=== PATIENT | male | born 1935 | race Hispanic/Latino ===

== ENCOUNTER 2018-01-03 09:59 | Observation (INO) | payer MEDICARE ==
[~2018-01-03] VITALS: Ht 170.2 cm; Wt 94.3 kg
[~2018-01-03 09:59] MED LIST: AMLO5TAB2 PO; ASPI-555 PO; ESZO1TAB12 PO; FURO40SO4 PO; LACT10SO32 PO; LOSA100T29 PO; METO25TA6 PO; NITR0.4T SL; OMEP20TA25 PO; POTA10CA44 PO; SIMV40TA59 PO; TAMS0.4C32 PO; WARF3TAB59 PO; WARF4TAB72 PO
[2018-01-03 10:17] LABS: BASOPHILS % (AUTO) 0.3 % (0.0-5.0); EOSINOPHILS % (AUTO) 1.6 % (0.0-8.0); LYMPHOCYTES % (AUTO) 20.3 % (21.0-51.0); MEAN CORPUSCULAR HGB CONC 33.4 g/dL (32.0-36.0); MEAN CORPUSCULAR VOLUME 89.8 fL (79-99); MONOCYTES % (AUTO) 8.1 % (3.0-13.0); NEUTROPHILS % (AUTO) 69.7 % (40.0-77.0); PLATELET COUNT (AUTO) 140 K/uL (130-400); RED BLOOD CELL COUNT(AUTO) 5.01 MIL/uL (4.50-6.20); RED CELL DISTRIBUTION WIDTH 16.2 % (11.0-15.5)
[2018-01-03 10:33] LABS: CREATININE 1.2 mg/dL (0.5-1.5); POTASSIUM 3.2 mmol/L (3.5-5.1)
[2018-01-03] MEDS ORDERED: ASPIRIN 325 MG TABLET ONE (10:34)
[2018-01-03] MEDS ORDERED: NITROGLYCERIN 0.4 MG SL TAB SL ONE (10:34)
[2018-01-03 10:35] LABS: INR 2.53 (0.85-1.15); PARTIAL THROMBOPLASTIN TIME 36.6 SEC (26.3-35.5); PROTHROMBIN TIME 26.1 SEC (9.6-11.6)
[2018-01-03 10:49] LABS: ALBUMIN 3.8 g/dL (3.5-5.0); BILIRUBIN,TOTAL 0.8 mg/dL (0.2-1.0); TOTAL PROTEIN, SERUM 7.6 g/dL (6.0-8.3)
[2018-01-03 10:51] LABS: B-TYPE NATRIURETIC PEPTIDE 279 pg/mL (0-100)
[2018-01-03] MEDS ORDERED: GLUCAGON 1MG KIT 1 MG ML IM PRN (13:30)
[2018-01-03] MEDS ORDERED: DEXTROSE 50%-WATER 50 ML DISP.SYRIN IV PRN (13:30)
[2018-01-03] MEDS: INSULIN R PO SS1 SQ SCH ×2 (16:30→21:00)
[2018-01-03 16:33] LABS: CREATINE KINASE MB 0.7 ng/mL (0.5-3.6); CREATINE KINASE, TOTAL 98 U/L (21-232); MYOGLOBIN 56 ng/mL (10-92); TROPONIN I < 0.04 ng/mL (0.00-0.06)
[2018-01-03] MEDS ORDERED: NITROGLYCERIN 0.4 MG SL TAB SL SCH (20:15)
[2018-01-03] MEDS: ATORVASTATIN CALCIUM 10 MG TABLET PO SCH (21:00)
[2018-01-03] MEDS: TAMSULOSIN HCL 0.4 MG CAP.ER.24H PO SCH (21:00)
[2018-01-03] MEDS: ZOLPIDEM TARTRATE 5 MG TAB PO SCH (21:15)
[2018-01-03 23:44] LABS: CREATINE KINASE MB 1.1 ng/mL (0.5-3.6); CREATINE KINASE, TOTAL 49 U/L (21-232); MYOGLOBIN 39 ng/mL (10-92); TROPONIN I < 0.04 ng/mL (0.00-0.06)
[2018-01-04] MEDS: INSULIN R PO SS1 SQ SCH ×3 (07:30→16:04)
[2018-01-04] MEDS ORDERED: NON-FORMULARY MEDICATION 1 EACH (Omeprazole 20 MG) PO SCH (09:00)
[2018-01-04] MEDS ORDERED: PANTOPRAZOLE SODIUM 40 MG TABLET.DR PO SCH (09:00)
[2018-01-04] MEDS ORDERED: POTASSIUM CHLORIDE 10% ELIXIR 20 MEQ/15 ML UDCUP PO PRN (10:30)
[2018-01-04] MEDS ORDERED: POTASSIUM CHLORIDE 20 MEQ ERTAB PO PRN (10:30)
[2018-01-04] MEDS ORDERED: LIDOCAINE HCL-MPF 1% 2ML VIAL IVP PRN (10:30)
[2018-01-04] MEDS ORDERED: POTASSIUM CHLORIDE 20MEQ/100ML 100 ML IV PRN (10:30)
[2018-01-04] MEDS ORDERED: REGADENOSON 0.4 MG/5 ML PF SYG IVP SCH (11:30)
[2018-01-04] MEDS ORDERED: AMLODIPINE BESYLATE 5 MG TAB PO SCH (12:00)
[2018-01-04] MEDS ORDERED: POTASSIUM CHLORIDE 20 MEQ ERTAB PO SCH (12:00)
[2018-01-04 12:50] VITALS: BP 188/98
[2018-01-04] MEDS: FUROSEMIDE 40 MG TABLET PO SCH (13:25)
[2018-01-04] MEDS: ISOSORBIDE MONO 60 MG TAB.SR PO SCH (13:25)
[2018-01-04] MEDS: ASPIRIN 81 MG EC TAB PO SCH (13:25)
[2018-01-04] MEDS: LOSARTAN 100 MG TABLET PO SCH (13:25)
[2018-01-04 16:09] VITALS: BP 152/53
[2018-01-04] MEDS ORDERED: PHARMACY COMMUNICATION MISC SCH (16:15)
[2018-01-04] MEDS ORDERED: METO25TA6 PO (16:41)
[2018-01-04] MEDS ORDERED: LACTULOSE 20 GM/30 ML UDCUP PO SCH (18:00)
[2018-01-04] MEDS ORDERED: WARFARIN SODIUM 1 MG TAB PO SCH (18:00)
[2018-01-04 19:18] VITALS: BP 135/65
[2018-01-04] MEDS: ZOLPIDEM TARTRATE 5 MG TAB PO SCH (21:22)
[2018-01-04] MEDS: ATORVASTATIN CALCIUM 10 MG TABLET PO SCH (21:22)
[2018-01-04] MEDS: TAMSULOSIN HCL 0.4 MG CAP.ER.24H PO SCH (21:22)
[2018-01-04 23:37] VITALS: BP 136/76
[2018-01-05 03:34] VITALS: BP 119/60
[2018-01-05 04:02] LABS: INR 2.42 (0.85-1.15)
[2018-01-05 07:37] VITALS: BP 162/73
[2018-01-05] MEDS: ASPIRIN 81 MG EC TAB PO SCH (08:02)
[2018-01-05] MEDS: ISOSORBIDE MONO 60 MG TAB.SR PO SCH (08:02)
[2018-01-05] MEDS: LOSARTAN 100 MG TABLET PO SCH (08:03)
[2018-01-05] MEDS: FUROSEMIDE 40 MG TABLET PO SCH (08:03)
[2018-01-05] MEDS ORDERED: RANO500T2 PO (08:12)
[2018-01-05] MEDS ORDERED: ATOR40TA69 PO (08:12)
[2018-01-08] MEDS ORDERED: WARFARIN SODIUM 1 MG TAB PO SCH (16:00)
== END 2018-01-05 09:35 | disposition home or self-care (01) ==
LOC: EDH 09:59 → EDHIP 12:57 → 2BH 01-04 10:32
PROVIDERS: ADMIT Internal Medicine Nephrology; ATTEND Internal Medicine Nephrology
DX: R07.89 Other chest pain (principal); I25.10 Atherosclerotic heart disease of native coronary artery without angina pectoris; I48.2 Chronic atrial fibrillation; S24.104S Unspecified injury at T11-T12 level of thoracic spinal cord, sequela; D68.318 Other hemorrhagic disorder due to intrinsic circulating anticoagulants, antibodies, or inhibitors; I11.0 Hypertensive heart disease with heart failure; E11.51 Type 2 diabetes mellitus with diabetic peripheral angiopathy without gangrene; I50.43 Acute on chronic combined systolic (congestive) and diastolic (congestive) heart failure; E78.5 Hyperlipidemia, unspecified; E87.6 Hypokalemia; G47.33 Obstructive sleep apnea (adult) (pediatric); J44.9 Chronic obstructive pulmonary disease, unspecified; N40.0 Benign prostatic hyperplasia without lower urinary tract symptoms; I25.2 Old myocardial infarction; I71.4 Abdominal aortic aneurysm, without rupture; F41.1 Generalized anxiety disorder; X58.XXXS Exposure to other specified factors, sequela; Y93.89 Activity, other specified; Y92.89 Other specified places as the place of occurrence of the external cause; Y99.8 Other external cause status; Z87.891 Personal history of nicotine dependence; Z86.79 Personal history of other diseases of the circulatory system; Z86.010 Personal history of colon polyps; Z95.1 Presence of aortocoronary bypass graft; Z95.5 Presence of coronary angioplasty implant and graft; Z79.01 Long term (current) use of anticoagulants
CPT/HCPCS: 36415 ×3; 71045; 78452; 80053; 82550 ×3; 82553 ×3; 82948; 83874 ×3; 83880; 84132; 84484 ×3; 85025; 85610 ×2; 85730; 93005; 93017; 99291; A9500 ×2; G0378 ×45; J2785; 96374

== ENCOUNTER 2020-04-14 13:27 | Emergency (ER) | payer MEDICARE ==
[~2020-04-14 13:27] MED LIST changes: -AMLO5TAB2 PO; +AMLO5TAB9 PO; -ASPI-555 PO; +ASPI-556 PO; +ATOR40TA71 PO; +COUMADIN PO; -ESZO1TAB12 PO; +FIBER PO; -FURO40SO4 PO; +FURO40TA7 PO; +LACT10SO PO; -LACT10SO32 PO; -LOSA100T29 PO; +LOSA100T58 PO; -METO25TA6 PO; +OXYB5TAB15 PO; +POTA-79 PO; -POTA10CA44 PO; +RANO10003 PO; +SIMV-43 PO; -SIMV40TA59 PO; +WARF3TAB29 PO; -WARF3TAB59 PO; -WARF4TAB72 PO
[2020-04-14 14:33] LABS: BASOPHILS % (AUTO) 0.1 % (0.0-5.0); EOSINOPHILS % (AUTO) 1.1 % (0.0-8.0); HEMATOCRIT 39.5 % (42-54); MEAN CORPUSCULAR HEMOGLOBIN 30.8 pg (27.0-33.0); MEAN CORPUSCULAR HGB CONC 33.2 g/dL (32.0-36.0); MEAN CORPUSCULAR VOLUME 92.9 fL (79-99); MONOCYTES % (AUTO) 8.2 % (3.0-13.0); PLATELET COUNT (AUTO) 150 K/uL (130-400); RED BLOOD CELL COUNT(AUTO) 4.25 MIL/uL (4.50-6.20); RED CELL DISTRIBUTION WIDTH 13.6 % (11.0-15.5)
[2020-04-14 14:46] LABS: CREATININE 1.2 mg/dL (0.5-1.5); POTASSIUM 3.8 mmol/L (3.5-5.1)
[2020-04-14 14:51] LABS: ALBUMIN 3.2 g/dL (3.5-5.0); TOTAL PROTEIN, SERUM 7.7 g/dL (6.0-8.3)
[2020-04-14] MEDS ORDERED: LORAZEPAM 2 MG/ML 1 ML VIAL ONE (16:02)
== END 2020-04-14 16:33 | disposition home or self-care (01) ==
LOC: EDH 13:27
DX: F41.9 Anxiety disorder, unspecified (principal); Z20.828 Contact with and (suspected) exposure to other viral communicable diseases; E11.9 Type 2 diabetes mellitus without complications; I10 Essential (primary) hypertension; I25.10 Atherosclerotic heart disease of native coronary artery without angina pectoris; J44.9 Chronic obstructive pulmonary disease, unspecified; I48.91 Unspecified atrial fibrillation; I71.4 Abdominal aortic aneurysm, without rupture; E78.5 Hyperlipidemia, unspecified; Z87.891 Personal history of nicotine dependence; Z88.0 Allergy status to penicillin
CPT/HCPCS: 36415; 71045; 80053; 84484; 85025; 87426; 93005; 96374; 99285; J2060

== ENCOUNTER → 2020-05-15 | Outpatient (CLI) | payer MEDICARE ==
[~2020-05-15] MED LIST changes: +AMLO-257 PO; -AMLO5TAB9 PO; +REGADENOSON 0.4 MG/5 ML PF SYG IVP SCH
== END | disposition home or self-care (01) ==
LOC: SHCH 07:57
PROVIDERS: ATTEND Internal Medicine Cardiovascular Disease
DX: I48.91 Unspecified atrial fibrillation (principal); R06.09 Other forms of dyspnea; R07.9 Chest pain, unspecified
CPT/HCPCS: 78452; 93017; 96374; A9500 ×2; J2785

== ENCOUNTER 2022-07-04 03:17 | Inpatient (IN) | payer OTHER, MEDICARE ==
[~2022-07-04] VITALS: Ht 170.2 cm; Wt 93.6 kg
[~2022-07-04 03:17] MED LIST changes: -LACT10SO PO; +LACT10SO5 PO; +OMEP20TA20 PO; -OMEP20TA25 PO; -REGADENOSON 0.4 MG/5 ML PF SYG IVP SCH
[2022-07-04 09:10] VITALS: BP 156/71
[2022-07-04] MEDS ORDERED: AZITHROMYCIN 250 MG TABLET PO SCH (10:30)
[2022-07-04] MEDS ORDERED: ONDANSETRON 4MG INJ IVP PRN (10:30)
[2022-07-04 10:56] LABS: BASOPHILS % (AUTO) 0.2 % (0.0-5.0); EOSINOPHILS % (AUTO) 1.3 % (0.0-8.0); HEMATOCRIT 38.3 % (42-54); LYMPHOCYTES % (AUTO) 13.3 % (21.0-51.0); MEAN CORPUSCULAR HEMOGLOBIN 30.1 pg (27.0-33.0); MEAN CORPUSCULAR HGB CONC 32.6 g/dL (32.0-36.0); MEAN CORPUSCULAR VOLUME 92.3 fL (79-99); MONOCYTES % (AUTO) 5.4 % (3.0-13.0); NEUTROPHILS % (AUTO) 79.3 % (40.0-77.0); PLATELET COUNT (AUTO) 165 K/uL (130-400); RED BLOOD CELL COUNT(AUTO) 4.15 MIL/uL (4.50-6.20); RED CELL DISTRIBUTION WIDTH 14.3 % (11.0-15.5); WHITE BLOOD COUNT (AUTO) 6.3 K/uL (4.8-10.8)
[2022-07-04 11:00] VITALS: BP 126/74
[2022-07-04 11:13] LABS: INR 2.57 (0.85-1.15); PROTHROMBIN TIME 26.6 SEC (9.6-11.6)
[2022-07-04 11:16] LABS: CREATININE 1.4 mg/dL (0.5-1.5); POTASSIUM 3.7 mmol/L (3.5-5.1); TOTAL PROTEIN, SERUM 7.8 g/dL (6.0-8.3)
[2022-07-04] MEDS: FUROSEMIDE 40MG VIAL IV SCH ×2 (11:33→21:16)
[2022-07-04 11:47] LABS: B-TYPE NATRIURETIC PEPTIDE 260 pg/mL (0-100)
[2022-07-04] MEDS ORDERED: SODIUM CHLORIDE 3% FOR INHALATION 4 ML/AMP VIAL.NEB IH ONE (11:52)
[2022-07-04] MEDS: IPRATROPIUM 0.5 MG/2.5 ML INH IH SCH ×3 (11:56→23:05)
[2022-07-04] MEDS ORDERED: BENZONATATE 100 MG CAPSULE PO SCH (12:30)
[2022-07-04] MEDS: WARFARIN SODIUM 1 MG TAB PO SCH (15:19)
[2022-07-04 15:35] VITALS: BP 145/64
[2022-07-04] MEDS ORDERED: WARFARIN SODIUM 2 MG TAB PO SCH (16:00)
[2022-07-04] MEDS ORDERED: POTASSIUM CHLORIDE 20MEQ/100ML 100 ML IV PRN (16:00)
[2022-07-04] MEDS ORDERED: LIDOCAINE HCL-MPF 1% 2ML VIAL IV PRN (16:00)
[2022-07-04] MEDS ORDERED: POTASSIUM CHLORIDE 10% ELIXIR 20 MEQ/15 ML UDCUP PO PRN (16:00)
[2022-07-04 20:00] VITALS: BP 137/72
[2022-07-04] MEDS: ATORVASTATIN 40 MG TABLET PO SCH (21:09)
[2022-07-04] MEDS ORDERED: BUSP10TA3 PO (21:12)
[2022-07-04] MEDS: METOPROLOL SUCCINATE 25 MG TAB.SR.24H PO SCH (21:14)
[2022-07-04] MEDS: LEVOFLOXACIN 250 MG/D5W 50ML 50 ML IVPB SCH (21:14)
[2022-07-04] MEDS: RANOLAZINE 500 MG TAB.SR.12H PO SCH (21:16)
[2022-07-05] VITALS: BP_SYST 141; BP_SYST 144; BP_DIAS 57; BP_DIAS 66
[2022-07-05 04:00] VITALS: BP 141/57
[2022-07-05 05:24] LABS: BASOPHILS % (AUTO) 0.2 % (0.0-5.0); EOSINOPHILS % (AUTO) 3.2 % (0.0-8.0); HEMATOCRIT 36.1 % (42-54); LYMPHOCYTES % (AUTO) 22.3 % (21.0-51.0); MEAN CORPUSCULAR HEMOGLOBIN 30.4 pg (27.0-33.0); MEAN CORPUSCULAR HGB CONC 32.4 g/dL (32.0-36.0); MEAN CORPUSCULAR VOLUME 93.8 fL (79-99); NEUTROPHILS % (AUTO) 64.7 % (40.0-77.0); PLATELET COUNT (AUTO) 154 K/uL (130-400); RED BLOOD CELL COUNT(AUTO) 3.85 MIL/uL (4.50-6.20); RED CELL DISTRIBUTION WIDTH 14.4 % (11.0-15.5); WHITE BLOOD COUNT (AUTO) 5.3 K/uL (4.8-10.8)
[2022-07-05 05:42] LABS: INR 2.34 (0.85-1.15); PROTHROMBIN TIME 24.3 SEC (9.6-11.6)
[2022-07-05 06:11] LABS: ALANINE AMINOTRANSFERASE 18 U/L (12-78); ALBUMIN 3.6 g/dL (3.5-5.0); ASPARTATE AMINOTRANSFERASE 16 U/L (10-37); CARBON DIOXIDE 28 mmol/L (21-32); CHLORIDE 104 mmol/L (101-111); CREATININE 1.4 mg/dL (0.5-1.5); GLOMERULAR FILTR. RATE CALC 51 mL/min (>60); GLUCOSE,RANDOM 102 mg/dL (70-105); POTASSIUM 3.4 mmol/L (3.5-5.1); SODIUM SERUM 142 mmol/L (136-145); THYROID STIMULATING HORMONE 2.09 uIU/mL (0.36-3.74); TOTAL PROTEIN, SERUM 7.2 g/dL (6.0-8.3); UREA NITROGEN, BLOOD 21 mg/dL (7-18)
[2022-07-05 06:17] LABS: CRP QUANTITATIVE < 2.00 mg/L (0.00-9.0)
[2022-07-05] MEDS: IPRATROPIUM 0.5 MG/2.5 ML INH IH SCH ×4 (06:59→23:22)
[2022-07-05 08:07] VITALS: BP 152/53
[2022-07-05] MEDS ORDERED: LEVOFLOXACIN 250 MG/D5W 50ML 50 ML IVPB SCH (09:00)
[2022-07-05] MEDS: TAMSULOSIN HCL 0.4 MG CAP.ER.24H PO SCH (09:29)
[2022-07-05] MEDS: LOSARTAN 100 MG TABLET PO SCH (09:29)
[2022-07-05] MEDS: PANTOPRAZOLE 40 MG TAB DR PO SCH (09:29)
[2022-07-05] MEDS: AMLODIPINE 5 MG TAB PO SCH (09:30)
[2022-07-05] MEDS: METOPROLOL SUCCINATE 25 MG TAB.SR.24H PO SCH ×2 (09:30→20:38)
[2022-07-05] MEDS: ASPIRIN 81 MG EC TAB PO SCH (09:30)
[2022-07-05] MEDS: RANOLAZINE 500 MG TAB.SR.12H PO SCH ×2 (09:31→20:38)
[2022-07-05] MEDS: LEVOFLOXACIN 250 MG/D5W 50ML 50 ML IVPB SCH (09:40)
[2022-07-05 11:34] VITALS: BP 140/56
[2022-07-05] MEDS: KCL 20 MEQ ERTAB PO PRN ×2 (11:35→16:57)
[2022-07-05] MEDS: FUROSEMIDE 40MG VIAL IV SCH ×2 (11:35→20:42)
[2022-07-05] MEDS ORDERED: LACTULOSE 20 GM/30 ML UDCUP PO SCH (13:30)
[2022-07-05 15:52] VITALS: BP 140/73
[2022-07-05] MEDS: BUSPIRONE HCL 5 MG TABLET PO SCH (17:33)
[2022-07-05 20:00] VITALS: BP 150/64
[2022-07-05] MEDS: ATORVASTATIN 40 MG TABLET PO SCH (20:38)
[2022-07-06] VITALS: BP_SYST 137; BP_SYST 150; BP_DIAS 60; BP_DIAS 64
[2022-07-06 04:00] VITALS: BP 113/54
[2022-07-06 05:15] LABS: BASOPHILS % (AUTO) 0.2 % (0.0-5.0); EOSINOPHILS % (AUTO) 3.9 % (0.0-8.0); HEMATOCRIT 35.7 % (42-54); LYMPHOCYTES % (AUTO) 18.8 % (21.0-51.0); MEAN CORPUSCULAR HEMOGLOBIN 30.2 pg (27.0-33.0); MEAN CORPUSCULAR HGB CONC 32.2 g/dL (32.0-36.0); MEAN CORPUSCULAR VOLUME 93.7 fL (79-99); MONOCYTES % (AUTO) 9.6 % (3.0-13.0); PLATELET COUNT (AUTO) 159 K/uL (130-400); RED BLOOD CELL COUNT(AUTO) 3.81 MIL/uL (4.50-6.20); RED CELL DISTRIBUTION WIDTH 14.4 % (11.0-15.5); WHITE BLOOD COUNT (AUTO) 5.7 K/uL (4.8-10.8)
[2022-07-06 05:29] LABS: ALBUMIN 3.5 g/dL (3.5-5.0); CREATININE 1.3 mg/dL (0.5-1.5); MAGNESIUM 1.9 mg/dL (1.80-2.40); POTASSIUM 3.5 mmol/L (3.5-5.1); TOTAL PROTEIN, SERUM 7.1 g/dL (6.0-8.3)
[2022-07-06] MEDS: IPRATROPIUM 0.5 MG/2.5 ML INH IH SCH ×4 (06:35→23:09)
[2022-07-06] MEDS: KCL 20 MEQ ERTAB PO PRN ×2 (06:46→08:27)
[2022-07-06 07:35] VITALS: BP 147/59
[2022-07-06] MEDS: LEVOFLOXACIN 250 MG/D5W 50ML 50 ML IVPB SCH (08:24)
[2022-07-06] MEDS: ASPIRIN 81 MG EC TAB PO SCH (08:25)
[2022-07-06] MEDS: AMLODIPINE 5 MG TAB PO SCH (08:25)
[2022-07-06] MEDS: LACTULOSE 20 GM/30 ML UDCUP PO SCH (08:25)
[2022-07-06] MEDS: RANOLAZINE 500 MG TAB.SR.12H PO SCH ×2 (08:25→20:39)
[2022-07-06] MEDS: TAMSULOSIN HCL 0.4 MG CAP.ER.24H PO SCH (08:25)
[2022-07-06] MEDS: METOPROLOL SUCCINATE 25 MG TAB.SR.24H PO SCH ×2 (08:25→20:39)
[2022-07-06] MEDS: PANTOPRAZOLE 40 MG TAB DR PO SCH (08:25)
[2022-07-06] MEDS: LOSARTAN 100 MG TABLET PO SCH (08:25)
[2022-07-06] MEDS: FUROSEMIDE 40 MG TABLET PO SCH (08:25)
[2022-07-06] MEDS: BUSPIRONE HCL 5 MG TABLET PO SCH ×2 (08:25→20:39)
[2022-07-06] MEDS ORDERED: LEVO250T75 PO (11:24)
[2022-07-06 11:27] VITALS: BP 113/57
[2022-07-06 15:45] VITALS: BP 140/63
[2022-07-06] MEDS: ATORVASTATIN 40 MG TABLET PO SCH (20:39)
[2022-07-06] MEDS: ACETAMINOPHEN 325 MG TAB PO PRN (20:44)
[2022-07-06 21:06] VITALS: BP 134/57
[2022-07-07 00:10] VITALS: BP 135/61
[2022-07-07] MEDS: BENZONATATE 100 MG CAPSULE PO PRN ×2 (01:16→16:09)
[2022-07-07] MEDS: ACETAMINOPHEN 325 MG TAB PO PRN (01:18)
[2022-07-07 04:38] VITALS: BP 123/71
[2022-07-07] MEDS: IPRATROPIUM 0.5 MG/2.5 ML INH IH SCH ×4 (06:36→23:14)
[2022-07-07] MEDS: KCL 20 MEQ ERTAB PO PRN ×2 (07:13→20:07)
[2022-07-07 08:00] VITALS: BP 128/55
[2022-07-07] MEDS ORDERED: REGADENOSON 0.4 MG/5 ML PF SYG IVP SCH (08:30)
[2022-07-07] MEDS: LACTULOSE 20 GM/30 ML UDCUP PO SCH (09:05)
[2022-07-07] MEDS: ASPIRIN 81 MG EC TAB PO SCH (09:06)
[2022-07-07] MEDS: LOSARTAN 100 MG TABLET PO SCH (09:06)
[2022-07-07] MEDS: FUROSEMIDE 40 MG TABLET PO SCH (09:06)
[2022-07-07] MEDS: LEVOFLOXACIN 250 MG/D5W 50ML 50 ML IVPB SCH (09:06)
[2022-07-07] MEDS: PANTOPRAZOLE 40 MG TAB DR PO SCH (09:06)
[2022-07-07] MEDS: BUSPIRONE HCL 5 MG TABLET PO SCH ×2 (09:06→20:06)
[2022-07-07] MEDS: AMLODIPINE 5 MG TAB PO SCH (09:06)
[2022-07-07] MEDS: METOPROLOL SUCCINATE 25 MG TAB.SR.24H PO SCH ×2 (09:06→22:01)
[2022-07-07] MEDS: RANOLAZINE 500 MG TAB.SR.12H PO SCH ×2 (09:06→20:06)
[2022-07-07] MEDS: TAMSULOSIN HCL 0.4 MG CAP.ER.24H PO SCH (09:06)
[2022-07-07 11:57] VITALS: BP 154/68
[2022-07-07 16:00] VITALS: BP 136/59
[2022-07-07] MEDS: WARFARIN SODIUM 1 MG TAB PO SCH (16:09)
[2022-07-07] MEDS ORDERED: RANO500T2 PO (16:56)
[2022-07-07] MEDS: ATORVASTATIN 40 MG TABLET PO SCH (20:06)
[2022-07-07 20:36] VITALS: BP 134/55
[2022-07-08 00:24] VITALS: BP 126/58
[2022-07-08] MEDS ORDERED: NACL NASAL SPRAY 120 SPRAY/BOTTLE NS PRN (02:00)
[2022-07-08] MEDS ORDERED: GUAIFENESIN 600 MG TABLET.ER PO ONE (02:00)
[2022-07-08 04:06] VITALS: BP 116/57
[2022-07-08 04:06] LABS: BASOPHILS % (AUTO) 0.2 % (0.0-5.0); EOSINOPHILS % (AUTO) 3.6 % (0.0-8.0); HEMATOCRIT 32.4 % (42-54); LYMPHOCYTES % (AUTO) 21.2 % (21.0-51.0); MEAN CORPUSCULAR HEMOGLOBIN 30.5 pg (27.0-33.0); MEAN CORPUSCULAR HGB CONC 32.4 g/dL (32.0-36.0); MEAN CORPUSCULAR VOLUME 94.2 fL (79-99); NEUTROPHILS % (AUTO) 65.6 % (40.0-77.0); PLATELET COUNT (AUTO) 135 K/uL (130-400); RED BLOOD CELL COUNT(AUTO) 3.44 MIL/uL (4.50-6.20); RED CELL DISTRIBUTION WIDTH 13.9 % (11.0-15.5)
[2022-07-08 04:14] LABS: ALBUMIN 3.2 g/dL (3.5-5.0); CREATININE 1.3 mg/dL (0.5-1.5); MAGNESIUM 1.9 mg/dL (1.80-2.40); POTASSIUM 4.3 mmol/L (3.5-5.1); TOTAL PROTEIN, SERUM 6.6 g/dL (6.0-8.3)
[2022-07-08] MEDS ORDERED: MAGNESIUM 2GM PREMIX 50ML 50 ML IV PRN (06:00)
[2022-07-08] MEDS ORDERED: MAGNESIUM 2GM PREMIX 50ML 50 ML IV ONE (06:08)
[2022-07-08] MEDS ORDERED: IPRATROPIUM 0.5 MG/2.5 ML INH IH ONE (06:12)
[2022-07-08] MEDS: IPRATROPIUM 0.5 MG/2.5 ML INH IH SCH ×2 (06:31→11:15)
[2022-07-08 08:00] VITALS: BP 129/57
[2022-07-08] MEDS: AMLODIPINE 5 MG TAB PO SCH (09:16)
[2022-07-08] MEDS: LEVOFLOXACIN 250 MG/D5W 50ML 50 ML IVPB SCH (09:16)
[2022-07-08] MEDS: TAMSULOSIN HCL 0.4 MG CAP.ER.24H PO SCH (09:16)
[2022-07-08] MEDS: LOSARTAN 100 MG TABLET PO SCH (09:16)
[2022-07-08] MEDS: METOPROLOL SUCCINATE 25 MG TAB.SR.24H PO SCH (09:16)
[2022-07-08] MEDS: BUSPIRONE HCL 5 MG TABLET PO SCH (09:16)
[2022-07-08] MEDS: RANOLAZINE 500 MG TAB.SR.12H PO SCH (09:16)
[2022-07-08] MEDS: LACTULOSE 20 GM/30 ML UDCUP PO SCH (09:16)
[2022-07-08] MEDS: FUROSEMIDE 40 MG TABLET PO SCH (09:17)
[2022-07-08] MEDS: ASPIRIN 81 MG EC TAB PO SCH (09:17)
[2022-07-08] MEDS: PANTOPRAZOLE 40 MG TAB DR PO SCH (09:17)
[2022-07-08] MEDS ORDERED: WARFARIN SODIUM 2 MG TAB PO SCH (16:00)
[2022-07-08] MEDS ORDERED: WARFARIN SODIUM 2.5 MG TAB PO SCH (16:00)
== END 2022-07-08 11:56 | disposition home or self-care (01) | DRG 291 ==
LOC: 4BH 09:03
PROVIDERS: ADMIT Hospitalist; ATTEND Hospitalist
DX: I50.41 Acute combined systolic (congestive) and diastolic (congestive) heart failure (principal); J96.01 Acute respiratory failure with hypoxia; I48.20 Chronic atrial fibrillation, unspecified; J44.9 Chronic obstructive pulmonary disease, unspecified; Z79.01 Long term (current) use of anticoagulants; N40.0 Benign prostatic hyperplasia without lower urinary tract symptoms
CPT/HCPCS: 36415; 71045; 78452; 80053; 82948; 83605; 83735; 83880; 84145; 84443; 84484; 85025; 85610; 86140; 87071; 87205; 93017; 94640; 94664; 94760; 96374; A9500; G0378; J1940; J1956; J2785; J3475

== ENCOUNTER → 2022-09-02 | Outpatient (CLI) | payer MEDICARE ==
[~2022-09-02] MED LIST changes: +BUSP10TA3 PO; +LEVO250T75 PO; +RANO500T2 PO
[2022-09-02 12:48] LABS: CREATININE 1.4 mg/dL (0.5-1.5); POTASSIUM 4.3 mmol/L (3.5-5.1)
== END | disposition home or self-care (01) ==
LOC: LAB 09:25
PROVIDERS: ATTEND Internal Medicine Cardiovascular Disease
DX: I10 Essential (primary) hypertension (principal)
CPT/HCPCS: 36415; 80048; 83880

== ENCOUNTER → 2023-07-09 | Outpatient (CLI) | payer MEDICARE ==
[~2023-07-09] MED LIST changes: -AMLO-257 PO; +AMLO-258 PO; -ASPI-556 PO; +ASPI-888 PO; +ATOR40TA69 PO; -ATOR40TA71 PO; +CARB1DRO40 OU; +CEFTIN PO; +CHLO25TA3 PO; +CORTSUSP OT; -COUMADIN PO; +DOXY100T2 PO; +FERR-72 PO; -FIBER PO; -FURO40TA7 PO; +IPRA0.2S54 IH; -LEVO250T75 PO; +LOSA-420 PO; -LOSA100T58 PO; +MAGN400T53 PO; +METO-408 PO; +NITR0.3T11 SL; -NITR0.4T SL; -OMEP20TA20 PO; -OXYB5TAB15 PO; +PANT40TA54 PO; +POTA-364 PO; -POTA-79 PO; +PSYL0.5215 PO; -RANO10003 PO; -SIMV-43 PO; +TAMS-1 PO; -TAMS0.4C32 PO; -WARF3TAB29 PO; +WARF3TAB59 PO
[2023-07-09 16:33] LABS: CREATININE 1.3 mg/dL (0.5-1.5); POTASSIUM 4.4 mmol/L (3.5-5.1)
[2023-07-09 16:37] LABS: INR 2.11 (0.85-1.15); PROTHROMBIN TIME 23.3 SEC (9.6-11.6)
== END | disposition home or self-care (01) ==
LOC: LAB 13:10
PROVIDERS: ATTEND Internal Medicine Cardiovascular Disease
DX: I10 Essential (primary) hypertension (principal); I20.9 Angina pectoris, unspecified; Z79.01 Long term (current) use of anticoagulants
CPT/HCPCS: 36415; 80048; 83880; 85610

== ENCOUNTER → 2023-09-07 | Outpatient (CLI) | payer MEDICARE ==
[~2023-09-07] MED LIST changes: +AMLO-257 PO; -AMLO-258 PO; -ATOR40TA69 PO; -CARB1DRO40 OU; -CEFTIN PO; -CORTSUSP OT; -DOXY100T2 PO
[2023-09-07 12:28] LABS: CREATININE 1.4 mg/dL (0.5-1.5); POTASSIUM 4.6 mmol/L (3.5-5.1)
== END | disposition home or self-care (01) ==
LOC: LAB 10:03
PROVIDERS: ATTEND Internal Medicine Cardiovascular Disease
DX: I10 Essential (primary) hypertension (principal)
CPT/HCPCS: 36415; 80048

== ENCOUNTER → 2024-03-09 | Outpatient (CLI) | payer MEDICARE ==
[~2024-03-09] MED LIST changes: +AEC81 PO; -AMLO-257 PO; +AMLO-258 PO; -ASPI-888 PO; +ATOR40TA69 PO; -CHLO25TA3 PO; -FERR-72 PO; +FERS325 PO; +FURO40TA5 PO; +HYDR-3421 PO; -IPRA0.2S54 IH; +IPRA4AER IH; -LACT10SO5 PO; +LACT10SO85 PO; -LOSA-420 PO; +LOSA100T59 PO; +MAGN400T40 PO; -MAGN400T53 PO; +MULT-1367 PO; -NITR0.3T11 SL; +NITR0.4T SL; +OMEG100033 PO
== END | disposition home or self-care (01) ==
LOC: RAH 09:30
PROVIDERS: ATTEND Internal Medicine Gastroenterology
DX: K59.04 Chronic idiopathic constipation (principal)
CPT/HCPCS: 74018

== ENCOUNTER → 2024-07-19 | Outpatient (CLI) | payer MEDICARE | END | disposition home or self-care (01) | LOC: SHCH 07:39 | PROVIDERS: ATTEND Internal Medicine Cardiovascular Disease | DX: I71.40 Abdominal aortic aneurysm, without rupture, unspecified (principal) | CPT/HCPCS: 93978 ==

== ENCOUNTER 2024-07-28 00:01 | Emergency (ER) | payer OTHER, MEDICARE ==
[2024-07-28 01:53] LABS: BASOPHILS # (AUTO) 0.02 K/uL (0.00-0.20); BASOPHILS % (AUTO) 0.4 % (0.0-5.0); EOSINOPHILS # (AUTO) 0.24 K/uL (0.00-0.70); EOSINOPHILS % (AUTO) 4.5 % (0.0-8.0); HEMATOCRIT 32.1 % (42-54); IMMATURE GRANULOCYTE ABSOLUTE 0.02 K/uL (0-1); LYMPHOCYTES # (AUTO) 0.8 K/uL (1.0-4.8); LYMPHOCYTES % (AUTO) 15.8 % (21.0-51.0); MEAN CORPUSCULAR HEMOGLOBIN 31.4 pg (27.0-33.0); MEAN CORPUSCULAR HGB CONC 34.3 g/dL (32.0-36.0); MEAN CORPUSCULAR VOLUME 91.7 fL (79-99); MONOCYTES # (AUTO) 0.4 K/uL (0.1-1.0); MONOCYTES % (AUTO) 7.3 % (3.0-13.0); NEUTROPHILS # (AUTO) 3.8 K/uL (1.8-7.7); NEUTROPHILS % (AUTO) 71.6 % (40.0-77.0); PLATELET COUNT (AUTO) 144 K/uL (130-400); RED CELL DISTRIBUTION WIDTH 13.8 % (11.0-15.5); WHITE BLOOD COUNT (AUTO) 5.3 K/uL (4.8-10.8)
[2024-07-28] MEDS ORDERED: ketOROlac 30MG VIAL (30MG/ML) IVP ONE (02:00)
[2024-07-28] MEDS ORDERED: ondanSETRON 4MG INJ IVP ONE (02:00)
[2024-07-28 02:02] LABS: CREATININE 1.3 mg/dL (0.5-1.3); POTASSIUM 3.7 mmol/L (3.5-5.1)
[2024-07-28 02:27] LABS: B-TYPE NATRIURETIC PEPTIDE 205 pg/mL (0-100)
[2024-07-28] MEDS ORDERED: MAGN250T10 PO (03:14)
--- NOTE | 2024-07-28 03:16 | ERN ---
General Chief Complaint: Shortness of Breath Stated Complaint: SHORTNESS OF BREATH Time Seen by MD: 00:03 Source: patient History of Present Illness Initial Comments Patient is a an 89-year-old male coming in due to lower extremity cramps. Patient states that he was history of lower extremity cramps but today they were unbearable. Long with cramps patient does have extensive history of using CPAP at home. Allergies: Coded Allergies: Penicillins (Unverified Allergy, Intermediate, RASH, 07/29/16) penicillin G (Unverified Allergy, Unknown, 05/10/20) pneumococcal vaccine (Unverified Allergy, Unknown, 05/10/20) Home Meds Reported Medications Ipratropium/Albuterol Sulfate (Combivent Respimat Inhal [place]) 20 Mcg-100 Mcg/Actuation Aer.w.adap, 4 GM IH DAILY PRN for SHORTNESS OF BREATH 10/05/23 Nitroglycerin (Nitrostat) 0.4 Mg Tab.subl, 0.4 MG SL AD, TAB.SL 10/05/23 Lactulose (Lactulose) 10 Gram/15 Ml Solution, 10 GM PO DAILY, ML 10/05/23 Hydroxyzine HCl (Hydroxyzine HCl) 25 Mg Tablet, 25 MG PO DAILY PRN for ANXIETY, TAB 10/05/23 Buspirone HCl (Buspirone HCl) 10 Mg Tablet, 10 MG PO BID, TAB 10/05/23 Tamsulosin HCl (Flomax) 0.4 Mg Cap.er.24h, 0.4 MG PO HS, CAPSULE.DR 10/05/23 Atorvastatin Calcium (LIPITOR) 40 Mg Tablet, 40 MG PO HS, TAB 10/05/23 Warfarin Sodium (Warfarin Sodium) 3 Mg Tablet, 3 MG PO HS, TAB 10/05/23 Amlodipine Besylate (Amlodipine Besylate) 10 Mg Tablet, 10 MG PO HS for 30 Days, #30 TAB 0 Refills 10/05/23 Psyllium Husk (Fiber) 0.4 Gram Capsule, 0.8 GM PO NOON, CAP 10/05/23 [place]-3/Dha/Epa/Fish Oil (Fish Oil 1,000 mg Softgel) 1,000 Mg (120 Mg-180 Mg) Capsule, 1000 MG PO NOON, CAP 10/05/23 Multivitamin (Multivitamin) 1 Each Tablet, 1 EACH PO NOON, TAB 10/05/23 Magnesium Oxide (Magnesium) 400 Mg Magnesium Tablet, 400 MG PO NOON, TAB 10/05/23 Ferrous Sulfate (Ferrous Sulfate) 325 Mg (65 Mg Iron) Ectab, 325 MG PO NOON, TAB.EC 10/05/23 Losartan Potassium (Losartan Potassium) 100 Mg Tablet, 100 MG PO NOON, TAB 10/05/23 Potassium Chloride (Potassium Chloride) 20 Meq Tablet.er, 20 MEQ PO HS, TAB 10/05/23 Potassium Chloride (Potassium Chloride) 20 Meq Tablet.er, 20 MEQ PO ACDINNER, TAB 10/05/23 Potassium Chloride (Potassium Chloride) 20 Meq Tablet.er, 20 MEQ PO NOON, TAB 10/05/23 Ranolazine (RANEXA) 500 Mg Tab.er.12h, 500 MG PO BID, TAB 10/05/23 Metoprolol Succinate (Metoprolol Succinate) 25 Mg Tab.er.24h, 12.5 MG PO AMNOON, TAB 10/05/23 Aspirin (ASPIRIN 81 MG ECTAB) 81 Mg Ectab, 81 MG PO DAILY, TAB.EC 10/05/23 Pantoprazole Sodium (Pantoprazole Sodium) 40 Mg Tablet.dr, 40 MG PO AM, TAB 10/05/23 Furosemide (Furosemide) 40 Mg Tablet, 40 MG PO AMNOON, TAB 10/05/23 Past Medical History Past Medical History: A-Fib, CAD, Hypertension Medical History Other: SLEEP APNEA Past Surgical History: Cholecystectomy, CABG Surgical History Other: BACK SURG Family History Family History: CAD Social History Social History: Lives with family ROS Dictation CONSTITUTIONAL: No chills, no fever, no weakness, no diaphoresis, no malaise. HEAD/FACE: No signs of trauma. EENT: No eye pain, no blurred vision, no tearing, no double vision, no ear pain, no ear discharge, no nose pain, no nasal congestion, no throat pain, no throat swelling, no mouth pain. RESPIRATORY: No cough, no orthopnea, no SOB, no stridor, no wheezing. CARDIOVASCULAR: No chest pain, no edema, no palpitations, no syncope. GASTROINTESTINAL/ABDOMINAL: No abdominal pain, no constipation, no diarrhea, no nausea, no vomiting. GENITOURINARY: No abnormal discharge, no dysuria, no frequent urination, no hematuria. No complaints of pain in the genitals. MUSCULOSKELETAL: No back pain, no gout, no joint pain, no joint swelling, no muscle pain, no muscle stiffness, no neck pain. INTEGUMENTARY: No change in color, no change in hair/nails, no dryness, no lesion, no lumps, no rash. NEUROLOGICAL/PSYCH: No anxiety, not depressed, no emotional problem, no headache, no numbness, no pre-existing deficit, no history of seizures, no tremors, no weakness. HEMATOLOGIC/LYMPHATIC: Not anemic, no history of blood clots, no apparent bleeding, no bruising, glands not swollen. All Systems Negative, Except as Noted. Physical Exam Physical Exam Dictation VITAL SIGNS: Reviewed. GENERAL APPEARANCE: Alert, oriented x3, no acute distress, obese. HEAD AND FACE: Non-traumatic. EYES: PERRL, pink conjunctivas, eyelid no trauma, anterior chamber clear. EARS: Pinnas intact and no signs of trauma or erythema. Ear canals clear and no discharge. TMs no erythema. NOSE: No discharge, no bleeding. OROPHARYNX: Mouth normal, teeth no caries, tongue pink. Pharynx clear, no erythema. Tonsils no exudates, no abscesses noted. Mucous membrane moist. NECK: Supple, non-tender, no thyromegaly, no masses, no JVD, no bruits. BREAST: Deferred. CHEST: No tenderness, no crepitus, no paradoxical movement, no retractions. LUNGS: Clear, well-ventilated, symmetric, no rales, no wheezing, no rhonchi, no stridor, good breath sounds bilaterally. HEART: Regular rate, regular rhythm, no murmur, no gallops. VASCULAR: No peripheral edema. ABDOMEN: Soft, positive bowel sounds, nondistended, no guarding, nontender, no rebound, no masses no hepatomegaly, no splenomegaly, no Powell's sign, no hernias. RECTAL: Deferred. GENITAL: Deferred. NEUROLOGICAL: Normal speech, gross motor function intact, gross sensory function intact. MUSCULOSKELETAL: Neck nontender, full range of motion, back nontender, full range of motion. EXTREMITIES: Nontender, full range of motion. SKIN: Color pink, dry, no turgor, no rash, no lacerations, no abrasions, no contusions. LYMPHATICS: Deferred. Results Laboratory and Microbiology Lab and Micro Result Laboratory Tests Test 07/28/24 01:26 07/28/24 01:52 07/28/24 02:05 White Blood Count 5.3 K/uL (4.8-10.8) Red Blood Count 3.50 MIL/uL (4.50-6.20) L Hemoglobin 11.0 g/dL (14.0-18.0) L Hematocrit 32.1 % (42-54) L Mean Corpuscular Volume 91.7 fL (79-99) Mean Corpuscular Hemoglobin 31.4 pg (27.0-33.0) Mean Corpuscular Hemoglobin Concent 34.3 g/dL (32.0-36.0) Red Cell Distribution Width 13.8 % (11.0-15.5) Platelet Count 144 K/uL (130-400) Mean Platelet Volume 9.8 fL (7.5-10.5) Immature Granulocyte % (Auto) 0.4 % (0-1) Neutrophils (%) (Auto) 71.6 % (40.0-77.0) Lymphocytes (%) (Auto) 15.8 % (21.0-51.0) L Monocytes (%) (Auto) 7.3 % (3.0-13.0) Eosinophils (%) (Auto) 4.5 % (0.0-8.0) Basophils (%) (Auto) 0.4 % (0.0-5.0) Neutrophils # (Auto) 3.8 K/uL (1.8-7.7) Lymphocytes # (Auto) 0.8 K/uL (1.0-4.8) L Monocytes # (Auto) 0.4 K/uL (0.1-1.0) Eosinophils # (Auto) 0.24 K/uL (0.00-0.70) Basophils # (Auto) 0.02 K/uL (0.00-0.20) Absolute Immature Granulocyte (auto 0.02 K/uL (0-1) Nucleated Red Blood Cells 0.0 % (0.0-0.19) Sodium Level 140 mmol/L (136-145) Potassium Level 3.7 mmol/L (3.5-5.1) Chloride Level 105 mmol/L (101-111) Carbon Dioxide Level 28 mmol/L (21-32) Blood Urea Nitrogen 14 mg/dL (7-18) Creatinine 1.3 mg/dL (0.5-1.3) Glomerular Filtration Rate Calc 53 mL/min (>90) Random Glucose 101 mg/dL (70-105) Total Calcium 8.9 mg/dL (8.5-10.1) Total Creatine Kinase 70 U/L (21-232) # B-Type Natriuretic Peptide 205 pg/mL (0-100) H Troponin I < 0.05 ng/mL (0.00-0.05) < 0.05 ng/mL (0.00-0.05) Labs Reviewed?: Yes EKG/XRAY/US/CT/MRI EKG Comment 07/28/2024 time 12:18 a.m. Ventricular rate [address] wave elevation or depression X-RAY Comment Chest [facility] MDM: Differential diagnosis: Muscle cramps, hypokalemia, hypomagnesemia, history of AFib, Patient is a an 89-year-old gentleman coming in to be evaluated for lower extremity pain. Patient states that this is a chronic condition but today he felt even worse. Throughout ER visit because of his history patient got a cardiac workup which does not demonstrate any acute changes. Patient will be discharged with a diagnosis of muscle aches. Patient does have a history of low magnesium we will get prescription for low magnesium. ED Course Orders Procedure Category Date Status Time Vital Signs Per CPOE 07/28/24 Transmitted Routine 00:15 B-Type Natriuretic LAB 07/28/24 Complete Peptide 00:15 Chest 1vw RAD 07/28/24 Taken 00:15 12 Lead Ekg Tracing- EKG 07/28/24 Logged Technical 00:15 Oxygen By Nc/Pulse Ox CPOE 07/28/24 Transmitted 00:15 Maintain Iv CPOE 07/28/24 Transmitted 00:15 Iv Insertion CPOE 07/28/24 Transmitted 00:15 Cardiac Monitoring CPOE 07/28/24 Transmitted 00:15 Pulse Oximetry With CPOE 07/28/24 Transmitted Vs And Prn 00:15 Cbc With Differential LAB 07/28/24 Complete 00:15 Activity: Br W/Brp CPOE 07/28/24 Transmitted With Assist 00:15 Creatine Kinase, Total LAB 07/28/24 Complete 00:15 Urinalysis Profile LAB 07/28/24 Logged 00:15 Troponin Poc Order LAB 07/28/24 Complete Only 00:15 Bedside Troponin-I LAB.ER 07/28/24 In Process (Poc) 00:15 Basic Metabolic Panel LAB 07/28/24 Complete 00:15 Ondansetron 4mg Inj PHA 07/28/24 Complete (Zofran 4mg Inj) 02:00 Ketorolac PHA 07/28/24 Complete Tromethamine 30mg/Ml 02:00 Current Medications Medications (Trade) Dose Ordered Sig/Reji Route PRN Reason Start Time Stop Time Status Last Admin Dose Admin Ketorolac Tromethamine (toRADol) 30 mg ONCE ONCE IVP 07/28/24 02:00 07/28/24 01:39 DC Ondansetron HCl (zoFRAN 4MG INJ) 4 mg ONCE ONCE IVP 07/28/24 02:00 07/28/24 01:39 DC Vital Signs Date Time Temp Pulse Resp B/P (MAP) Pulse Ox O2 Delivery O2 Flow Rate FiO2 07/28/24 03:00 48 18 139/67 98 CPAP+ 8 80 07/28/24 01:29 47 18 142/78 98 Room Air* 0 21 07/28/24 00:30 48 18 141/61 97 Nasal Cannula* 2 28 07/28/24 00:03 61 18 123/72 98 Nasal Cannula 2.0 DX & DISP Disposition: Discharge Departure Impression: Primary Impression: Muscle ache of extremity Additional Impression: Hypomagnesemia syndrome Condition: Stable Scripts Magnesium Oxide (Magnesium) 250 Mg Tablet 1 TAB PO DAILY for 7 Days, #7 TAB 0 Refills Prov: VALARIE DUARTE MD 07/28/24 Additional Instructions: FOLLOW-UP WITH PRIMARY CARE PROVIDER IN 1 TO 2 DAYS. TAKE MEDICATIONS DIRECTED HERE IN THE EMERGENCY ROOM. OKAY TO CONTINUE HOME MEDICATIONS UNLESS OTHERWISE DISCUSSED DURING YOUR VISIT IN THE EMERGENCY ROOM TODAY. RETURN TO YOUR NEAREST EMERGENCY ROOM IF SYMPTOMS WORSEN OR IF THERE IS NO IMPROVEMENT. CALL 911 IF YOU NEED IMMEDIATE ASSISTANCE. TAKE TYLENOL [id number] NEEDED AND IF NO CONTRAINDICATIONS ARE PRESENT. INCREASE ORAL HYDRATION. A WOUND CULTURE OR URINE CULTURE WAS ORDERED HERE IN THE EMERGENCY ROOM DEPARTMENT PLEASE FOLLOW-UP WITH PRIMARY CARE PROVIDER AND ADVISE THEM TO GET REPEAT PORTS FROM OUR FACILITY. IF YOU HAD ANY BART WRAP/SPLINTS THAT WERE APPLIED HERE, PLEASE DO NOT REMOVE THEM UNTIL YOU SEE YOUR PRIMARY CARE OR SPECIALTY. Referrals: Referrals: SELF,REFERRAL (PCP) MADINA COLLINS MD Time of Disposition: 03:13 VALARIE DUARTE MD Jul 28, 2024 03:16
--- NOTE | 2024-07-28 03:34 | NUR ---
DAUGHTER ELLIOTT SLATER NOT ABLE TO PICK PATIENT UP UNTIL ABOUT 5:30AM, PATIENT SLEEPING, NO DISTRESS NOTED.
--- NOTE | 2024-07-28 06:33 | NUR ---
ELLIOTT JIN IS WORKING ON GETTING PATIENT A RIDE.
[2024-07-28 06:42] LABS: APPEARANCE,URINE CLEAR (CLEAR); BILIRUBIN,URINE NEGATIVE (NEGATIVE); COLOR,URINE YELLOW (YELLOW); GLUCOSE, URINE (UA) NEGATIVE (NEGATIVE); KETONES,URINE NEGATIVE (NEGATIVE); LEUKOCYTE ESTERASE ,URINE NEGATIVE Leu/uL (NEGATIVE); NITRATE,URINE NEGATIVE (NEGATIVE); OCCULT BLOOD,URINE NEGATIVE (NEGATIVE); PROTEIN,URINE 10 mg/dL (NEGATIVE); UROBILINOGEN,URINE 0.2 mg/dL (0.2-1.0)
[2024-07-28 06:44] LABS: ADD UA MICROSCOPIC YES; BACTERIA,URINE None Seen /HPF (None Seen); RBC,URINE 0-1 /HPF (0-1); SQUAMOUS EPITHELIAL CELL,UR Rare /HPF (0-2); WBC,URINE 0-1 /HPF (0-1)
[2024-07-28 06:45] LABS: MUCUS,URINE Rare LPF (None Seen)
--- NOTE | 2024-07-28 07:11 | EKG ---
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
[2024-07-28 08:07] VITALS: BP 142/64; PULSE 60; RESP 16; TEMP 98; O2SAT 99
--- NOTE | 2024-07-28 08:21 | HMCIMG ---
CHEST 1VW REASON: CHEST PAIN COMPARISON: 08/02/2023 FINDINGS: There is moderate cardiomegaly. There is no pulmonary vascular congestion. Lungs are clear. There is been a previous median sternotomy. Mediastinum and bony thorax appear otherwise unremarkable. IMPRESSION: 1. Moderate cardiomegaly, unchanged, no acute finding.
== END 2024-07-28 08:09 | disposition home or self-care (01) ==
LOC: EDH 00:01
DX: M79.18 Myalgia, other site (principal); E83.42 Hypomagnesemia; G47.30 Sleep apnea, unspecified; I10 Essential (primary) hypertension; I25.10 Atherosclerotic heart disease of native coronary artery without angina pectoris; Z79.82 Long term (current) use of aspirin; Z79.899 Other long term (current) drug therapy; Z88.0 Allergy status to penicillin; Z88.7 Allergy status to serum and vaccine; Z90.49 Acquired absence of other specified parts of digestive tract; Z95.1 Presence of aortocoronary bypass graft
CPT/HCPCS: 36415; 71045; 80048; 81001; 82550; 83880; 84484; 85025; 93005; 99285

== ENCOUNTER 2024-10-02 20:06 | Inpatient (IN) | payer MEDICARE, OTHER ==
[~2024-10-02] VITALS: Ht 167.6 cm; Wt 88.5 kg
[~2024-10-02 20:06] MED LIST changes: -AMLO-258 PO; +BUME1TAB6 PO; -FURO40TA5 PO; -LOSA100T59 PO; -METO-408 PO; +METO25TA3 PO; +NIFE-40 PO; +PLEC3TAB2 PO; -POTA-364 PO; +SPIR25TA6 PO
[2024-10-02 23:32] LABS: BASOPHILS # (AUTO) 0.02 K/uL (0.00-0.20); BASOPHILS % (AUTO) 0.2 % (0.0-5.0); EOSINOPHILS # (AUTO) 0.03 K/uL (0.00-0.70); EOSINOPHILS % (AUTO) 0.4 % (0.0-8.0); HEMATOCRIT 31.1 % (42-54); IMMATURE GRANULOCYTE ABSOLUTE 0.13 K/uL (0-1); LYMPHOCYTES # (AUTO) 0.8 K/uL (1.0-4.8); LYMPHOCYTES % (AUTO) 9.8 % (21.0-51.0); MEAN CORPUSCULAR HEMOGLOBIN 30.8 pg (27.0-33.0); MEAN CORPUSCULAR HGB CONC 33.1 g/dL (32.0-36.0); MEAN CORPUSCULAR VOLUME 93.1 fL (79-99); MONOCYTES # (AUTO) 0.9 K/uL (0.1-1.0); MONOCYTES % (AUTO) 10.4 % (3.0-13.0); NEUTROPHILS # (AUTO) 6.5 K/uL (1.8-7.7); NEUTROPHILS % (AUTO) 77.7 % (40.0-77.0); NUCLEATED RED BLOOD CELLS 0.2 % (0.0-0.19); PLATELET COUNT (AUTO) 160 K/uL (130-400); RED BLOOD CELL COUNT(AUTO) 3.34 MIL/uL (4.50-6.20); RED CELL DISTRIBUTION WIDTH 14.9 % (11.0-15.5); WHITE BLOOD COUNT (AUTO) 8.4 K/uL (4.8-10.8)
[2024-10-02 23:45] LABS: SARS-CoV-2, RNA, NAAT NEGATIVE SARS CoV-2 (NEGATIVE)
[2024-10-02 23:45] LABS: CREATININE 1.7 mg/dL (0.5-1.3); POTASSIUM 3.6 mmol/L (3.5-5.1)
[2024-10-02 23:47] LABS: INR 2.09 (0.85-1.15); PROTHROMBIN TIME 20.6 SEC (9.6-11.6)
[2024-10-02 23:49] LABS: PARTIAL THROMBOPLASTIN TIME 31.5 SEC (26.3-35.5)
[2024-10-02 23:52] LABS: B-TYPE NATRIURETIC PEPTIDE 312 pg/mL (0-100)
[2024-10-02 23:53] LABS: INFLUENZA TYPE A Negative For Type A (NEGATIVE); INFLUENZA TYPE B Negative For Type B (NEGATIVE)
[2024-10-03] VITALS (7 sets, daily range): PULSE 71–79; RESP 17–18; O2SAT 95–96
[2024-10-03] MEDS ORDERED: VANCOMYCIN PROTOCOL PER PHARMACY IV SCH (01:00)
--- NOTE | 2024-10-03 01:00 | ERN ---
General Chief Complaint: Shortness of Breath Stated Complaint: SHORTNESS OF BREATH Time Seen by MD: 20:21 History of Present Illness Initial Comments 81-year-old male came in for shortness of breath. Patient is a was no concern. Allergies: Coded Allergies: Penicillins (Unverified Allergy, Intermediate, RASH, 07/29/16) penicillin G (Unverified Allergy, Unknown, 05/10/20) pneumococcal vaccine (Unverified Allergy, Unknown, 05/10/20) Home Meds Active Scripts Spironolactone (Spironolactone) 25 Mg Tablet, 12.5 MG PO DAILY, #30 TAB Prov:CRISTAL QUIROS MD 10/01/24 Nifedipine (Nifedipine ER) 30 Mg Tab.er.24, 60 MG PO DAILY, #30 TAB Prov:CRISTAL QUIROS MD 10/01/24 Metoprolol Succinate (Toprol Xl) 25 Mg Tab.er.24h, 25 MG PO DAILY, #30 TAB Prov:CRISTAL QUIROS MD 10/01/24 Bumetanide (Bumetanide) 1 Mg Tablet, 1 MG PO BID, #60 TAB Prov:CRISTAL QUIROS MD 10/01/24 Reported Medications Plecanatide (Trulance) 3 Mg Tablet, 1 TAB PO DAILY for 30 Days, #30 TAB 0 Refills 09/28/24 Ipratropium/Albuterol Sulfate (Combivent Respimat Inhal [place]) 20 Mcg-100 Mcg/Actuation Aer.w.adap, 4 GM IH DAILY PRN for SHORTNESS OF BREATH 10/05/23 Nitroglycerin (Nitrostat) 0.4 Mg Tab.subl, 0.4 MG SL AD, TAB.SL 10/05/23 Lactulose (Lactulose) 10 Gram/15 Ml Solution, 10 GM PO DAILY, ML 10/05/23 Hydroxyzine HCl (Hydroxyzine HCl) 25 Mg Tablet, 25 MG PO DAILY PRN for ANXIETY, TAB 10/05/23 Buspirone HCl (Buspirone HCl) 10 Mg Tablet, 10 MG PO BID, TAB 10/05/23 Tamsulosin HCl (Flomax) 0.4 Mg Cap.er.24h, 0.4 MG PO HS, CAPSULE.DR 10/05/23 Atorvastatin Calcium (LIPITOR) 40 Mg Tablet, 40 MG PO HS, TAB 10/05/23 Warfarin Sodium (Warfarin Sodium) 3 Mg Tablet, 3 MG PO HS, TAB 10/05/23 Psyllium Husk (Fiber) 0.4 Gram Capsule, 0.8 GM PO NOON, CAP 10/05/23 [place]-3/Dha/Epa/Fish Oil (Fish Oil 1,000 mg Softgel) 1,000 Mg (120 Mg-180 Mg) Capsule, 1000 MG PO NOON, CAP 10/05/23 Multivitamin (Multivitamin) 1 Each Tablet, 1 EACH PO NOON, TAB 10/05/23 Magnesium Oxide (Magnesium) 400 Mg Magnesium Tablet, 400 MG PO NOON, TAB 10/05/23 Ferrous Sulfate (Ferrous Sulfate) 325 Mg (65 Mg Iron) Ectab, 325 MG PO NOON, TAB.EC 10/05/23 Ranolazine (RANEXA) 500 Mg Tab.er.12h, 500 MG PO BID, TAB 10/05/23 Aspirin (ASPIRIN 81 MG ECTAB) 81 Mg Ectab, 81 MG PO DAILY, TAB.EC 10/05/23 Pantoprazole Sodium (Pantoprazole Sodium) 40 Mg Tablet.dr, 40 MG PO AM, TAB 10/05/23 Discontinued Reported Medications Chlorthalidone (Chlorthalidone) 25 Mg Tablet, 1 TAB PO DAILY for 30 Days, #30 TAB 0 Refills 09/28/24 Amlodipine Besylate (Amlodipine Besylate) 10 Mg Tablet, 10 MG PO HS for 30 Days, #30 TAB 0 Refills 10/05/23 Losartan Potassium (Losartan Potassium) 100 Mg Tablet, 100 MG PO NOON, TAB 10/05/23 Potassium Chloride (Potassium Chloride) 20 Meq Tablet.er, 20 MEQ PO HS, TAB 10/05/23 Potassium Chloride (Potassium Chloride) 20 Meq Tablet.er, 20 MEQ PO ACDINNER, TAB 10/05/23 Potassium Chloride (Potassium Chloride) 20 Meq Tablet.er, 20 MEQ PO NOON, TAB 10/05/23 Metoprolol Succinate (Metoprolol Succinate) 25 Mg Tab.er.24h, 12.5 MG PO AMNOON, TAB 10/05/23 Furosemide (Furosemide) 40 Mg Tablet, 40 MG PO AMNOON, TAB 10/05/23 Discontinued Scripts Magnesium Oxide (Magnesium) 250 Mg Tablet, 1 TAB PO DAILY for 7 Days, #7 TAB 0 Refills Prov:VALARIE DUARTE MD 07/28/24 Past Medical History Past Medical History: CHF, COPD, Diabetes-Type II, Hypertension, [place] Medical History Other: SLEEP APNEA Past Surgical History: None Surgical History Other: BACK SURG Family History Family History: CAD Social History Social History: Lives with family ROS Dictation Shortness of breath Physical Exam Physical Exam Dictation Bilateral crackles Results Laboratory and Microbiology Lab and Micro Result Laboratory Tests Test 10/02/24 23:18 10/02/24 23:25 Influenza Type A Antigen Negative For Type A Influenza Type B Antigen Negative For Type B SARS-CoV-2, RNA, NAAT NEGATIVE SARS CoV-2 White Blood Count 8.4 K/uL (4.8-10.8) Red Blood Count 3.34 MIL/uL (4.50-6.20) L Hemoglobin 10.3 g/dL (14.0-18.0) L Hematocrit 31.1 % (42-54) L Mean Corpuscular Volume 93.1 fL (79-99) Mean Corpuscular Hemoglobin 30.8 pg (27.0-33.0) Mean Corpuscular Hemoglobin Concent 33.1 g/dL (32.0-36.0) Red Cell Distribution Width 14.9 % (11.0-15.5) Platelet Count 160 K/uL (130-400) Mean Platelet Volume 10.5 fL (7.5-10.5) Immature Granulocyte % (Auto) 1.5 % (0-1) H Neutrophils (%) (Auto) 77.7 % (40.0-77.0) H Lymphocytes (%) (Auto) 9.8 % (21.0-51.0) L Monocytes (%) (Auto) 10.4 % (3.0-13.0) Eosinophils (%) (Auto) 0.4 % (0.0-8.0) Basophils (%) (Auto) 0.2 % (0.0-5.0) Neutrophils # (Auto) 6.5 K/uL (1.8-7.7) Lymphocytes # (Auto) 0.8 K/uL (1.0-4.8) L Monocytes # (Auto) 0.9 K/uL (0.1-1.0) Eosinophils # (Auto) 0.03 K/uL (0.00-0.70) Basophils # (Auto) 0.02 K/uL (0.00-0.20) Absolute Immature Granulocyte (auto 0.13 K/uL (0-1) Nucleated Red Blood Cells 0.2 % (0.0-0.19) H Prothrombin Time 20.6 SEC (9.6-11.6) H Prothromb Time International Ratio 2.09 (0.85-1.15) H Activated Partial Thromboplast Time 31.5 SEC (26.3-35.5) Sodium Level 136 mmol/L (136-145) Potassium Level 3.6 mmol/L (3.5-5.1) Chloride Level 102 mmol/L (101-111) Carbon Dioxide Level 29 mmol/L (21-32) Blood Urea Nitrogen 44 mg/dL (7-18) H Creatinine 1.7 mg/dL (0.5-1.3) H Glomerular Filtration Rate Calc 38 mL/min (>90) Random Glucose 109 mg/dL (70-105) H Lactic Acid Level 1.3 mmol/L (0.8-2.5) Total Calcium 8.8 mg/dL (8.5-10.1) Magnesium Level 2.00 mg/dL (1.80-2.40) Total Creatine Kinase 59 U/L (21-232) Troponin I High Sensitivity 26 ng/L (4-75) B-Type Natriuretic Peptide 312 pg/mL (0-100) H Procalcitonin < 0.05 ng/mL (0.05-0.5) L [facility] Patient admitted to hospitalist service ED Course Orders Procedure Category Date Status Time 12 Lead Ekg Tracing- EKG 10/02/24 Logged Technical 20:27 12 Lead Ekg Tracing- EKG 10/02/24 Logged Technical 22:05 B-Type Natriuretic LAB 10/02/24 Complete Peptide 22:05 Cbc With Differential LAB 10/02/24 Complete 22:05 Basic Metabolic Panel LAB 10/02/24 Complete 22:05 Creatine Kinase, Total LAB 10/02/24 Complete 22:05 Magnesium LAB 10/02/24 Complete 22:05 Troponin I High LAB 10/02/24 Complete Sensitivity 22:05 Chest 1vw RAD 10/02/24 Taken 22:05 Pt And Ptt LAB 10/02/24 Complete 22:05 Covid Rna Naat LAB 10/02/24 Complete 22:05 Influenza Type A & B, LAB 10/02/24 Complete Rapid 22:05 Procalcitonin LAB 10/02/24 Complete 22:05 Lactic Acid LAB 10/02/24 Complete 22:05 Bumetanide 1mg/4ml PHA 10/03/24 In Process Vial (Bumex 1mg Vial) 01:00 Vancomycin Protocol PHA 10/03/24 Logged (Vancomycin Protocol 01:00 Aztreonam (Azactam) PHA 10/03/24 In Process 01:00 Current Medications Medications (Trade) Dose Ordered Sig/Reji Route PRN Reason Start Time Stop Time Status Last Admin Dose Admin Aztreonam (Azactam) 1 gm Q12H IVPB 10/03/24 01:00 10/13/24 00:59 Bumetanide (Bumex 1mg Vial) 1 mg ONCE ONCE IVP 10/03/24 01:00 10/03/24 01:01 Vancomycin HCl (Vancomycin Protocol) 1 each AD IV 10/03/24 01:00 10/17/24 00:59 UNV Vital Signs Date Time Temp Pulse Resp B/P (MAP) Pulse Ox O2 Delivery O2 Flow Rate FiO2 10/03/24 00:31 77 17 10/02/24 23:14 97.9 77 25 144/69 92 Nasal Cannula* 3 32 10/02/24 20:09 99.0 81 20 135/52 96 Nasal Cannula 4.0 DX & DISP Disposition: Inpatient Departure Impression: Primary Impression: CHF exacerbation Condition: Stable Referrals: SHAWNEE KENT MD (PCP) NICHOLE PEDRAZA MD Oct 03, 2024 01:00
--- NOTE | 2024-10-03 01:09 | HP ---
[facility] HISTORY AND PHYSICAL Date of Service: Oct 03, 2024 Time of Service: 01:09 Attending/supervising physicians: Dr. Hunt and Dr. Teo Wakefield HISTORY OF PRESENT ILLNESS: Mr. Ivory is a 81-year-old male with a history of CHF, COPD, CAD, DM type 2, hypertension, [place], sleep apnea, and chronic back pain who presented to [facility] ED for evaluation of shortness of breath. The patient denied chest pain, fevers, any other pain, problem or concern. Patient is pending chest x-ray, CT chest, and venous Doppler results. Labs: BNP 312. D-dimer a 1298. Troponin negative. PO2 65.5. In ED patient was administered Bumex1 mg IV, vancomycin IV, and Aztreonem. ED physician request patient be admitted with the diagnosis of CHF exacerbation. Patient was admitted under the [facility] hospitalist team. I went to assess the patient at bedside. RN reports that patient has voided a 1500 mL after the Bumex administration. Patient's breathing was even, unlabored, on home CPAP, in no distress. I informed the patient of remarkable labs, diagnostics, and plan of care. The patient verbalized understanding and is in agreement with the plan. Plan and assessment are listed below. REVIEW OF SYSTEMS 12-point ROS reviewed with the patient. All pertinent positives mentioned above. Otherwise negative, noncontributory, non-pertinent. PAST MEDICAL HISTORY: As listed above PAST SURGICAL HISTORY: Back surgery PAST SOCIAL HISTORY: Denied: Alcohol, tobacco, illicit drug use. FAMILY HISTORY: Noncontributory Coded Allergies: Penicillins (Unverified Allergy, Intermediate, RASH, 07/29/16) penicillin G (Unverified Allergy, Unknown, 05/10/20) pneumococcal vaccine (Unverified Allergy, Unknown, 05/10/20) PHYSICAL EXAM GENERAL APPEARANCE: The patient is awake, alert, and oriented, in no acute ca rdiopulmonary distress. NEUROLOGICAL: Cranial nerves II-XII grossly intact. Motor is 5/5 in bilateral upper and lower extremities proximal to distal. No sensory deficits. HEENT: Face is symmetric. Pupils are equal and reactive. Extraocular movements are intact. NECK: Supple. No JVD. No thyromegaly. No submental, submandibular, pre- /postauricular, occipital or supraclavicular lymphadenopathy. CHEST: Normal chest expansion. No Telemetry. LUNGS: Crackles. Breathing is even and unlabored, on CPAP. CARDIOVASCULAR: Regular. S1 and S2 normal. No appreciable rubs, murmurs or gallops. ABDOMEN: Soft, nontender, and nondistended. There is no rebound, voluntary guarding, or rigidity. : Deferred. No Koch. EXTREMITIES: +1 edema. No cyanosis. No clubbing. Good capillary refill. SKIN: No skin breakdown. Vital Sign (Last 24 Hours) 10/02/24 10/03/24 23:14 00:31 Temp 97.9 Pulse 77 Resp 17 B/P (MAP) 144/69 Pulse Ox 92 O2 Delivery Nasal Cannula* O2 Flow Rate 3 FiO2 32 LABS: Laboratory: Test 10/02/24 23:25 10/02/24 23:18 Range/Units White Blood Count 8.4 4.8-10.8 K/uL Red Blood Count 3.34 L 4.50-6.20 MIL/uL Hemoglobin 10.3 L 14.0-18.0 g/dL Hematocrit 31.1 L 42-54 % Mean Corpuscular Volume 93.1 79-99 fL Mean Corpuscular Hemoglobin 30.8 27.0-33.0 pg Mean Corpuscular Hemoglobin Concent 33.1 32.0-36.0 g/dL Red Cell Distribution Width 14.9 11.0-15.5 % Platelet Count 160 130-400 K/uL Mean Platelet Volume 10.5 7.5-10.5 fL Immature Granulocyte % (Auto) 1.5 H 0-1 % Neutrophils (%) (Auto) 77.7 H 40.0-77.0 % Lymphocytes (%) (Auto) 9.8 L 21.0-51.0 % Monocytes (%) (Auto) 10.4 3.0-13.0 % Eosinophils (%) (Auto) 0.4 0.0-8.0 % Basophils (%) (Auto) 0.2 0.0-5.0 % Neutrophils # (Auto) 6.5 1.8-7.7 K/uL Lymphocytes # (Auto) 0.8 L 1.0-4.8 K/uL Monocytes # (Auto) 0.9 0.1-1.0 K/uL Eosinophils # (Auto) 0.03 0.00-0.70 K/uL Basophils # (Auto) 0.02 0.00-0.20 K/uL Absolute Immature Granulocyte (auto 0.13 0-1 K/uL Nucleated Red Blood Cells 0.2 H 0.0-0.19 % Prothrombin Time 20.6 H 9.6-11.6 SEC Prothromb Time International Ratio 2.09 H 0.85-1.15 Activated Partial Thromboplast Time 31.5 26.3-35.5 SEC Sodium Level 136 136-145 mmol/L Potassium Level 3.6 3.5-5.1 mmol/L Chloride Level 102 101-111 mmol/L Carbon Dioxide Level 29 21-32 mmol/L Blood Urea Nitrogen 44 H 7-18 mg/dL Creatinine 1.7 H 0.5-1.3 mg/dL Glomerular Filtration Rate Calc 38 >90 mL/min Random Glucose 109 H 70-105 mg/dL Lactic Acid Level 1.3 0.8-2.5 mmol/L Total Calcium 8.8 8.5-10.1 mg/dL Magnesium Level 2.00 1.80-2.40 mg/dL Total Creatine Kinase 59 21-232 U/L Troponin I High Sensitivity 26 4-75 ng/L B-Type Natriuretic Peptide 312 H 0-100 pg/mL Procalcitonin < 0.05 L 0.05-0.5 ng/mL Influenza Type A Antigen Negative For Type A NEGATIVE Influenza Type B Antigen Negative For Type B NEGATIVE SARS-CoV-2, RNA, NAAT NEGATIVE SARS CoV-2 NEGATIVE Current Medications Medications (Trade) Dose Ordered Sig/Reji Route PRN Reason Start Time Stop Time Status Last Admin Dose Admin Aztreonam (Azactam) 1 gm Q12H IVPB 10/03/24 01:00 10/13/24 00:59 Vancomycin HCl (Vancomycin Protocol) 1 each AD IV 10/03/24 01:00 10/17/24 00:59 UNV DIAGNOSTICS / RADIOLOGY: [ ] ASSESSMENT: CHF exacerbation, POA LVEF 55-60%, per echo on 09/28/2024 Stage III diastolic dysfunction, PASP is 53 mmHg, per echo on 09/28/2024 Acute hypoxemic respiratory failure, POA COPD exacerbation, POA Elevated D-dimer, rule out PE and DVT. Anemia chronic disease Acute kidney injury Acute on chronic kidney disease Hyperglycemia Obesity, BMI 32 Chronic problem list: CHF, COPD, DM type 2, hypertension, [place], sleep apnea PLAN: Admit the patient to PCCU with continuous telemetry monitoring. Continue Bumex1 mg IV b.i.d. Continue vancomycin IV, and Aztreonem IV. Monitor respiratory status closely. CPAP q.h.s.. May continue using home CPAP. Albuterol and Atrovent nebulizer treatments scheduled q.6 hours and p.r.n.. Solu-Medrol 60 mg IV q.6 hours daily. RT to provide IS and education on use. Reconciled home medication metoprolol [id number] mg p.o. daily, nifedipine 60 mg p.o. daily, spironolactone 12.5 mg p.o. daily.. Reconcile remaining medications once available. P.r.n. medications for: Pain management, fever, hypertension, nausea, vomiting, constipation. Glucometer checks a.c. and HS with insulin regular sliding scale per protocol. Blood pressure checks every4 hours and as needed. Monitor renal and liver function. Monitor electrolytes and treat accordingly. A.m. labs: CBC, BNP, Mag, phos, TSH, A1c. GI and DVT prophylaxis. ADVANCED CARE PLANNING 1. Which of the following were discussed? Hospice Care - No Therapeutic options - Yes Advance Directives - Yes Other discussions - 2. Discussed with who? Patient 3. Voluntary nature of this service was explained to the patient? Yes 4. Amount of time spent - ___ Over 35 minutes ____ 5. Reviewed by Physician? (if this service was performed by DESMOND) Yes ATTESTATION BY PHYSICIAN: I have seen and examined the patient. I reviewed the documentation, medical decision-making, treatment plan as noted by the advanced practice provider above. I agree with the findings and plan of care. CARLO REINA REFRIGERATION TECH Oct 03, 2024 01:09
[2024-10-03 01:13] LABS: APPEARANCE,URINE CLEAR (CLEAR); BILIRUBIN,URINE NEGATIVE (NEGATIVE); COLOR,URINE LIGHT-YELLOW (YELLOW); GLUCOSE, URINE (UA) NEGATIVE (NEGATIVE); KETONES,URINE NEGATIVE (NEGATIVE); LEUKOCYTE ESTERASE ,URINE NEGATIVE Leu/uL (NEGATIVE); NITRATE,URINE NEGATIVE (NEGATIVE); OCCULT BLOOD,URINE NEGATIVE (NEGATIVE); PH,URINE 5.5 (5.0-8.0); PROTEIN,URINE NEGATIVE (NEGATIVE); UROBILINOGEN,URINE 0.2 mg/dL (0.2-1.0)
[2024-10-03] MEDS: AZTREONAM 1 GM VIAL IVPB SCH (01:13)
[2024-10-03] MEDS: BUMETANIDE 1MG/4ML VIAL IVP ONE (01:14)
[2024-10-03 01:19] LABS: ADD UA MICROSCOPIC NO
[2024-10-03 01:26] LABS: ABG BASE EXCESS -0.2 mmol/L (-2.0-3.0); ABG HCO3 22.9 mmol/L (21.0-28.0); ABG PCO2 33 mmHg (35-48); ABG PH 7.457 (7.350-7.450); CPAP, BG 10 cm H2O; DEVICE COMMENT RR RN; PO2, ARTERIAL BG 65.5 mmHg (83.0-108.0); VENT MODE, BG HOME CPAP (ROOM AIR)
[2024-10-03] MEDS ORDERED: acetaMINOPHEN 650 MG SUPPOSITORY RC PRN (01:30)
[2024-10-03] MEDS ORDERED: ondanSETRON 4MG INJ IVP PRN (01:30)
[2024-10-03] MEDS ORDERED: doCUSate SODIUM 100 MG CAP PO PRN (01:30)
[2024-10-03] MEDS: SODIUM CHLORIDE 3% FOR INHALATION 4 ML/AMP VIAL.NEB IH ONE (02:24)
[2024-10-03] MEDS: ALBUTEROL 0.083% 2.5 MG/3 ML INH IH SCH (02:24)
[2024-10-03] MEDS: IpraTROPium 0.5 MG/2.5 ML INH IH SCH (02:24)
[2024-10-03] MEDS: VANCOMYCIN 2GM/500 ML BAG 500 ML IV ONE (03:19)
--- NOTE | 2024-10-03 06:28 | EKG ---
[facility] Test Date: 2024-10-02 Test Time: 20:30:42 Pat Name: LISBETH SILVA Department: EDHIP Room: 423 Gender: M Piano Technician: [id number] : [id number] Requested By: MADINA KEVIN Order Number: [id number] Reading MD: Chandler Ramos Measurements Intervals [place] Rate: 78 P: 0 GA: 0 QRS: 82 QRSD: 103 T: 227 QT: 390 QTc: 445 Interpretive Statements Atrial fibrillation Nonspecific T abnormalities, lateral leads Compared to ECG 09/28/2024 01:48:00 Intraventricular conduction delay no longer present Possible ischemia no longer present T-wave abnormality still present Electronically Signed On 10-04-2024 23:18:00 CDT by Chandler Ramos Please click the below link to view image of tracing.
--- NOTE | 2024-10-03 07:16 | NUR ---
PT CALLED NURSE TO REPORT PT COUGHED UP BLOODY SPUTUM. SPUTUM COLLECTED INTO SPECIMEN BAG. HOSPITALIST [employer] H CLUB AGENT, MURPHY JURADO MADE AWARE. NO NEW ORDERS AT THIS TIME.
[2024-10-03] MEDS: INSULIN humuLIN R 100 UNIT/ML 3ML SQ SCH (07:30)
--- NOTE | 2024-10-03 08:48 | HMCIMG ---
CT NONCONTRAST CHEST Comparison Study: none History: ELEVATED D-DIMER Technique: Helical CT of the chest without IV contrast at 5 mm collimation. Coronal and sagittal reformations also done. CT Dose Index (CTDI): 2.38 mGy Dose Length Product (DLP): 94.8 total mGy-cm Findings: The airway is intact. The trachea and major bronchi are unremarkable. The chest exam shows no pulmonary nodules or masses. No significant pulmonary parenchymal abnormalities are noted. No pulmonary infiltrates or mass lesions are seen. No pleural effusions are identified. There is no pneumothorax. There is no evidence of pneumomediastinum. The nonenhanced exam of the courtney and mediastinum is unremarkable. No evidence of hilar enlargement is seen. The aorta shows no aneurysmal dilatation or significant atheromatous calcification. No significant brachiocephalic vascular abnormalities are seen. Status post CABG. Cardiomegaly and coronary arterial calcifications of the ione coronary arteries. There is no pericardial effusion. The rib cage appears unremarkable. The soft tissues of the chest wall are unremarkable. The dorsal spine shows no significant abnormalities. IMPRESSION: No acute pathology. This study was performed using dose reduction techniques to include automated exposure control and/or adjustment of the mA and/or kV according to patient size.
--- NOTE | 2024-10-03 09:00 | NUR ---
ORTHOSTATIC VITALS LAYING 125/70 HR:92 SITTING 117/74 HR:97 STANDING 109/70 HR:103
--- NOTE | 2024-10-03 09:11 | HMCIMG ---
Exam Type: US VENOUS DOPPLER BILATERAL Clinical Information: ELEVATED D-DIMER Comparison: None Findings: The examination shows normal deep venous system. There is normal compressibility at all levels. There is no intraluminal clot. There is no occlusion. Adequate response is obtained on augmentation. Impression: No evidence of DVT.
--- NOTE | 2024-10-03 09:29 | HMCIMG ---
Exam Type: CHEST 1VW Clinical Information: sob Comparison: None Findings: Status post CABG. There is prominence of the pulmonary vascular markings consistent with pulmonary venous congestion. . There is central bilateral perihilar edema consistent with congestive heart failure. The heart is enlarged in size. The bony and soft tissue structures of the chest are unremarkable. Impression: Congestive heart failure with perihilar edema as noted.
[2024-10-03] MEDS: FAMOTIDINE 20MG VIAL IV SCH (10:00)
[2024-10-03] MEDS: Solu-medROL 40MG VIAL IVP SCH (10:01)
[2024-10-03] MEDS: nifeDIPine ER 30 MG TAB PO SCH (10:01)
[2024-10-03] MEDS: SPIRONOLACTONE 25 MG TAB PO SCH (10:02)
[2024-10-03] MEDS: ENOXAPARIN SODIUM 40 MG/0.4 ML SYRINGE SQ SCH (10:08)
[2024-10-03] MEDS: BUMETANIDE 1MG/4ML VIAL IVP SCH (12:17)
--- NOTE | 2024-10-03 12:28 | NUR ---
DCP Patient lives alone in a rental house with ramp entrance and walk in shower with bench. States he is retired and [employer] , remains independent and drives self. States able to complete ADL's on his own. has a cane, regular walker, walker with a seat, scooter, wheelchair and hospital bed. [facility] the [facility] provides a provider 13 hours per week. [facility] he has a portable oxygenator, concentrator and nebulizer/CPAP via [facility]. Denies dialysis. PCP - [facility]. Upon discharge, Jackeline Garland, Daughter [phone] home and family will assist with care. Addendum: 10/03/24 at 1236 by ALVA CORTES RN CM Amended: Links added.
[2024-10-03 14:47] LABS: HEMATOCRIT 33.8 % (42-54); MEAN CORPUSCULAR HEMOGLOBIN 31.6 pg (27.0-33.0); MEAN CORPUSCULAR HGB CONC 33.4 g/dL (32.0-36.0); MEAN CORPUSCULAR VOLUME 94.4 fL (79-99); NUCLEATED RED BLOOD CELLS 0.3 % (0.0-0.19); RED BLOOD CELL COUNT(AUTO) 3.58 MIL/uL (4.50-6.20); RED CELL DISTRIBUTION WIDTH 14.9 % (11.0-15.5); WHITE BLOOD COUNT (AUTO) 6.3 K/uL (4.8-10.8)
--- NOTE | 2024-10-03 14:48 | PN ---
[facility] PROGRESS NOTE Date of Service: Oct 03, 2024 Time of Service: 14:[address] Weaver SUBJECTIVE: [10/02 Mr. Ivory is a 81-year-old male with a history of CHF, COPD, CAD, DM type 2, hypertension, [place], sleep apnea, and chronic back pain who presented to [facility] ED for evaluation of shortness of breath. The patient denied chest pain, fevers, any other pain, problem or concern. Patient is pending chest x-ray, CT chest, and venous Doppler results. Labs: BNP 312. D-dimer a 1298. Troponin negative. PO2 65.5. In ED patient was administered Bumex1 mg IV, vancomycin IV, and Aztreonem. ED physician request patient be admitted with the diagnosis of CHF exacerbation. Patient was admitted under the [facility] hospitalist team. I went to assess the patient at bedside. RN reports that patient has voided a 1500 mL after the Bumex administration. Patient's breathing was even, unlabored, on home CPAP, in no distress. I informed the patient of remarkable labs, diagnostics, and plan of care. The patient verbalized understanding and is in agreement with the plan. Plan and assessment are listed below 10/03 patient was seen by nurse practitioner and physician during rounding in the emergency department in room ED 15 lying in the bed. Family members/ at the bedside. Nurse practitioner was also able to talk to the daughter over the phone. Home medication were reconciled. Patient stated that for the past two weeks he has been getting weaker and weaker and that he is not as he used to be 2 to 3 weeks ago. Prior patient was independent now he is very weak and barely his Lexiscan hold him. Patient is requesting if he could be this time admitted to the rehab. PT was consulted and case management consulted as well. Patient continues to be on 2 L nasal cannula satting at 98%. Leaf Fat Scraper was consulted for further evaluation. We will monitor patient in the meantime. A.m. labs] REVIEW OF SYSTEMS 12-point ROS reviewed with the patient. All pertinent positives mentioned above. Otherwise negative, noncontributory, non-pertinent. PHYSICAL EXAM GENERAL APPEARANCE: The patient is awake, alert, and oriented, in no acute cardiopulmonary distress. NEUROLOGICAL: Cranial nerves II-XII grossly intact. Motor is 5/5 in bilateral upper and lower extremities proximal to distal. No sensory deficits. HEENT: Face is symmetric. Pupils are equal and reactive. Extraocular movements are intact. NECK: Supple. No JVD. No thyromegaly. No submental, submandibular, pre- /postauricular, occipital or supraclavicular lymphadenopathy. CHEST: Normal chest expansion. No Telemetry. LUNGS: Crackles. Breathing is even and unlabored, on CPAP. CARDIOVASCULAR: Regular. S1 and S2 normal. No appreciable rubs, murmurs or gallops. ABDOMEN: Soft, nontender, and nondistended. There is no rebound, voluntary guarding, or rigidity. : Deferred. No Koch. EXTREMITIES: +1 edema. No cyanosis. No clubbing. Good capillary refill. SKIN: No skin breakdown. Vital Signs (last 8hr) Date Time Temp Pulse Resp B/P (MAP) Pulse Ox O2 Delivery O2 Flow Rate FiO2 10/03/24 11:32 79 18 10/03/24 07:22 72 18 CPAP bled with 2L 28 10/03/24 07:22 76 18 LABS: Laboratory: Test 10/03/24 11:26 10/03/24 01:24 10/03/24 01:04 10/02/24 23:25 Range/Units Whole Blood Glucose 101 70-110 MG/DL Blood Gas Specimen Type Arterial Arterial Blood pH 7.457 H 7.350-7.450 Arterial Blood Partial Pressure CO2 33 L 35-48 mmHg Arterial Blood Partial Pressure O2 65.5 L 83.0-108.0 mmHg Arterial Blood HCO3 22.9 21.0-28.0 mmol/L Arterial Blood Oxygen Saturation 94.0 94.0-98.0 % Arterial Blood Base Excess -0.2 -2.0-3.0 mmol/L Blood Gas Temperature 37.0 35.5-37.0 CELSIUS Blood Gas Flow-by 3.00 0.00-15.00 L/min Blood Gas Vent Mode HOME CPAP ROOM AIR FiO2 32.0 % Blood Gas CPAP 10 cm H2O Blood Gas Specimen Comment RR RN Urine Color LIGHT-YELLOW YELLOW Urine Appearance CLEAR CLEAR Urine pH 5.5 5.0-8.0 Urine Specific [place] 1.012 1.001-1.031 Urine Protein NEGATIVE NEGATIVE mg/dL Urine Glucose (UA) NEGATIVE NEGATIVE mg/dL Urine Ketones NEGATIVE NEGATIVE mg/dL Urine Occult Blood NEGATIVE NEGATIVE Urine Nitrate NEGATIVE NEGATIVE Urine Bilirubin NEGATIVE NEGATIVE mg/dL Urine Urobilinogen 0.2 0.2-1.0 mg/dL Urine Leukocyte Esterase NEGATIVE NEGATIVE Samuel/uL White Blood Count 8.4 4.8-10.8 K/uL Red Blood Count 3.34 L 4.50-6.20 MIL/uL Hemoglobin 10.3 L 14.0-18.0 g/dL Hematocrit 31.1 L 42-54 % Mean Corpuscular Volume 93.1 79-99 fL Mean Corpuscular Hemoglobin 30.8 27.0-33.0 pg Mean Corpuscular Hemoglobin Concent 33.1 32.0-36.0 g/dL Red Cell Distribution Width 14.9 11.0-15.5 % Platelet Count 160 130-400 K/uL Mean Platelet Volume 10.5 7.5-10.5 fL Immature Granulocyte % (Auto) 1.5 H 0-1 % Neutrophils (%) (Auto) 77.7 H 40.0-77.0 % Lymphocytes (%) (Auto) 9.8 L 21.0-51.0 % Monocytes (%) (Auto) 10.4 3.0-13.0 % Eosinophils (%) (Auto) 0.4 0.0-8.0 % Basophils (%) (Auto) 0.2 0.0-5.0 % Neutrophils # (Auto) 6.5 1.8-7.7 K/uL Lymphocytes # (Auto) 0.8 L 1.0-4.8 K/uL Monocytes # (Auto) 0.9 0.1-1.0 K/uL Eosinophils # (Auto) 0.03 0.00-0.70 K/uL Basophils # (Auto) 0.02 0.00-0.20 K/uL Absolute Immature Granulocyte (auto 0.13 0-1 K/uL Nucleated Red Blood Cells 0.2 H 0.0-0.19 % Prothrombin Time 20.6 H 9.6-11.6 SEC Prothromb Time International Ratio 2.09 H 0.85-1.15 Activated Partial Thromboplast Time 31.5 26.3-35.5 SEC D-Dimer Quantitative (PE/DVT) 1298 *H 0-500 ng/mL Sodium Level 136 136-145 mmol/L Potassium Level 3.6 3.5-5.1 mmol/L Chloride Level 102 101-111 mmol/L Carbon Dioxide Level 29 21-32 mmol/L Blood Urea Nitrogen 44 H 7-18 mg/dL Creatinine 1.7 H 0.5-1.3 mg/dL Glomerular Filtration Rate Calc 38 >90 mL/min Random Glucose 109 H 70-105 mg/dL Lactic Acid Level 1.3 0.8-2.5 mmol/L Total Calcium 8.8 8.5-10.1 mg/dL Magnesium Level 2.00 1.80-2.40 mg/dL Total Creatine Kinase 59 21-232 U/L Troponin I High Sensitivity 26 4-75 ng/L B-Type Natriuretic Peptide 312 H 0-100 pg/mL Procalcitonin < 0.05 L 0.05-0.5 ng/mL Test 10/02/24 23:18 Range/Units Influenza Type A Antigen Negative For Type A NEGATIVE Influenza Type B Antigen Negative For Type B NEGATIVE SARS-CoV-2, RNA, NAAT NEGATIVE SARS CoV-2 NEGATIVE Current Medications Medications (Trade) Dose Ordered Sig/Reji Route PRN Reason Start Time Stop Time Status Last Admin Dose Admin Acetaminophen (TYLenol 325MG TAB) 650 mg Q6H PRN PO FEVER/MILD PAIN LEVEL 1-3 10/03/24 01:30 11/02/24 01:29 Acetaminophen (TYLenol 650MG SUPPOSITORY) 650 mg Q6H PRN RC FEVER / MILD PAIN 1-3 IF NPO 10/03/24 01:30 11/02/24 01:29 Albuterol Sulfate (Proventil 0.083% 2.5mg/3ml) 2.5 mg [id number] IH 10/03/24 01:15 11/02/24 01:14 10/03/24 11:32 2.5 MG Aspirin (Aspirin 81mg Ec Tab) 81 mg DAILY PO 10/04/24 09:00 11/03/24 08:59 UNV Atorvastatin Calcium (LIPItor 40MG) 40 mg HS PO 10/03/24 21:00 11/02/24 20:59 UNV Aztreonam (Azactam) 1 gm Q12H IVPB 10/03/24 01:00 10/13/24 00:59 10/03/24 12:17 1 GM Bumetanide (Bumex 1mg Tab) 1 mg BID PO 10/03/24 21:00 11/02/24 20:59 UNV Bumetanide (Bumex 1mg Vial) 1 mg BID IVP 10/03/24 13:00 11/02/24 12:59 10/03/24 12:17 1 MG Docusate Sodium (COLace 100MG CAP) 100 mg BID PRN PO c 10/03/24 01:30 11/02/24 01:29 Enoxaparin Sodium (Lovenox) 40 mg DAILY SQ 10/03/24 09:00 11/02/24 08:59 10/03/24 10:08 40 MG Famotidine (Pepcid 20mg Vial) 20 mg Q48H IV 10/03/24 09:00 11/02/24 08:59 10/03/24 10:00 20 MG Hydroxyzine HCl (ATArax 25MG TAB) 25 mg DAILY PRN PO ANXIETY 10/03/24 15:00 11/02/24 14:59 UNV Insulin Human Regular (humuLIN R 100 UNIT/ML 3ML) INSULIN SLIDING SCAL... ACHS SQ 10/03/24 07:30 11/02/24 07:29 Ipratropium [place] (AtrovENT UD) 0.5 mg [id number] IH 10/03/24 01:15 11/02/24 01:14 10/03/24 11:32 0.5 MG Labetalol HCl (TRANdate 20MG SYG) 10 mg Q2H PRN IV SBP GREATER THAN 160 10/03/24 01:30 11/02/24 01:29 Lactulose (Constulose 20gm/ 30ml Udcup) 10 gm DAILY PO 10/04/24 09:00 11/03/24 08:59 UNV Lactulose (Constulose 20gm/ 30ml Udcup) 20 gm Q6H PRN PO CONSTIPATION 10/03/24 01:30 11/02/24 01:29 Methylprednisolone Sodium Succinate (Solu-medROL 40MG) 60 mg Q8H IVP 10/03/24 08:00 11/02/24 07:59 10/03/24 10:01 60 MG Metoprolol Succinate (TopROL XL) 25 mg DAILY PO 10/04/24 09:00 11/03/24 08:59 UNV Metoprolol Tartrate (loprESSOR) 25 mg DAILY15 PO 10/03/24 15:00 11/02/24 14:59 Miscellaneous Medication (Buspirone HCl ) 10 mg BID PO 10/03/24 21:00 11/02/24 20:59 UNV Miscellaneous Medication (Ferrous Sulfate ) 325 mg NOON PO 10/04/24 12:00 11/03/24 11:59 UNV Miscellaneous Medication (Ipratropium/ Albuterol Sulfate (Combivent Respimat Inhal [place])) 4 gm DAILY PRN IH SHORTNESS OF BREATH 10/03/24 15:00 11/02/24 14:59 UNV Miscellaneous Medication (Magnesium Oxide (Magnesium)) 400 mg NOON PO 10/04/24 12:00 11/03/24 11:59 UNV Miscellaneous Medication (Multivitamin ) 1 each NOON PO 10/04/24 12:00 11/03/24 11:59 UNV Miscellaneous Medication (Theresa-3/Dha/Epa/ Fish Oil (Fish Oil 1,000 mg Softgel)) 1,000 mg NOON PO 10/04/24 12:00 11/03/24 11:59 UNV Miscellaneous Medication (Plecanatide (Trulance)) 1 tab DAILY PO 10/04/24 09:00 11/03/24 08:59 UNV Miscellaneous Medication (Psyllium Husk (Fiber)) 0.8 gm NOON PO 10/04/24 12:00 11/03/24 11:59 UNV Nifedipine (adALAT 30MG) 60 mg DAILY PO 10/03/24 09:00 11/02/24 08:59 10/03/24 10:01 60 MG Nitroglycerin (Nitrostat) 0.4 mg AD SL 10/03/24 15:00 11/02/24 14:59 UNV Ondansetron HCl (zoFRAN 4MG INJ) 4 mg Q6H PRN IVP NAUSEA/VOMITING 10/03/24 01:30 11/02/24 01:29 Pantoprazole Sodium (PROTonix 40MG TAB) 40 mg AM PO 10/04/24 09:00 11/03/24 08:59 UNV Ranolazine (Ranexa) 500 mg BID PO 10/03/24 21:00 11/02/24 20:59 UNV Spironolactone (Aldactone 25mg) 12.5 mg DAILY PO 10/03/24 09:00 11/02/24 08:59 10/03/24 10:02 12.5 MG Tamsulosin HCl (FloMAX) 0.4 mg HS PO 10/03/24 21:00 11/02/24 20:59 UNV Temazepam (restORIL 15 MG CAP) 15 mg HS PRN PO INSOMNIA/SLEEP 10/03/24 01:30 11/02/24 01:29 Vancomycin HCl (Vancomycin 750mg) 750 mg Q24H IVPB 10/04/24 02:00 10/14/24 01:59 Vancomycin HCl (Vancomycin Protocol) 1 each AD IV 10/03/24 01:00 10/17/24 00:59 DIAGNOSTICS / RADIOLOGY: [ ] ASSESSMENT: Acute CHF exacerbation, POA Acute hypoxic respiratory failure POA Progressive generalized body weakness POA Moderate malnutrition due to above LVEF 55-60%, per echo on 09/28/2024 CHF Stage III diastolic dysfunction, PASP is 53 mmHg, per echo on 09/28/2024 Acute hypoxemic respiratory failure, POA Acute COPD exacerbation, POA Elevated D-dimer, rule out PE and DVT. Anemia chronic disease Acute kidney injury Dehydration Hyperglycemia Obesity, BMI 32 Chronic problem list: CHF, COPD, DM type 2, hypertension, SD, sleep apnea PLAN: Admit the patient to PCCU with continuous telemetry monitoring. Home medication reconciled 10/03/2024 by VIOLIN MAKER HAND Leaf Fat Scraper consulted V/Q scan pending Continue vancomycin IV, and Aztreonem IV. Monitor respiratory status closely. CPAP q.h.s.. May continue using home CPAP. Albuterol and Atrovent nebulizer treatments scheduled q.6 hours and p.r.n.. Solu-Medrol 60 mg IV q.6 hours daily. RT to provide IS and education on use. P.r.n. medications for: Pain management, fever, hypertension, nausea, vomiting, constipation. Glucometer checks a.c. and HS with insulin regular sliding scale per protocol. Blood pressure checks every4 hours and as needed. Monitor renal and liver function. Monitor electrolytes and treat accordingly. Physical therapy consulted for evaluation Case management consulted for disposition to sniff versus rehab A.m. labs Venous Doppler negative Chest CT negative UA negative GI and DVT prophylaxis. ATTESTATION BY PHYSICIAN I have seen and examined the patient. I reviewed the documentation, medical decision making, and treatment plan as noted by the mid-level provider above. I agree with the findings and plan of care. JORGE WEAVER MD, KATARZYNA B APRN Oct 03, 2024 14:48
[2024-10-03 14:56] LABS: CREATININE 1.5 mg/dL (0.5-1.3); POTASSIUM 3.7 mmol/L (3.5-5.1)
[2024-10-03 15:00] LABS: ALBUMIN 3.2 g/dL (3.5-5.0); BILIRUBIN,TOTAL 1.7 mg/dL (0.2-1.0); TOTAL PROTEIN, SERUM 6.7 g/dL (6.0-8.3)
[2024-10-03] MEDS ORDERED: NITROGLYCERIN 0.4 MG SL TAB SL SCH (15:00)
[2024-10-03] MEDS ORDERED: IpraTROPium/alBUTERol SULFATE 3 ML SOLUTION IH PRN (15:00)
[2024-10-03] MEDS: metoPROLOL tartRATE 25 MG TAB PO SCH (16:46)
--- NOTE | 2024-10-03 20:52 | NUR ---
RAD NUCLEAR MED 2036 HOURS SPOKE TO NURSE VELA PATIENT REFUSED EXAM DUE TO FEELING NERVOUS AND SICK FOR EXAM.
[2024-10-03] MEDS: RANOLAZINE 500 MG TAB.SR.12H PO SCH (21:22)
[2024-10-03] MEDS: busPIRone HCL 5 MG TABLET PO SCH (21:23)
[2024-10-03] MEDS: BUMETANIDE 1 MG TAB PO SCH (21:23)
[2024-10-03] MEDS: tamSULOsin HCL 0.4 MG CAP.ER.24H PO SCH (21:24)
[2024-10-03] MEDS: atorVAStatin 40 MG TABLET PO SCH (21:26)
[2024-10-03] MEDS: TEMAZepam 15 MG CAPSULE PO PRN (22:17)
[2024-10-03] MEDS: LACTULOSE 20 GM/30 ML UDCUP PO PRN (22:21)
[2024-10-04] VITALS (11 sets, daily range): BP systolic 139–162; BP diastolic 64–72; PULSE 65–77; RESP 18–20; TEMP 98–98.4; O2SAT 94–98
[2024-10-04] MEDS: VANCOMYCIN 750MG VIAL IVPB SCH (03:26)
[2024-10-04] MEDS: PANTOPrazole 40 MG TAB DR PO SCH (08:46)
[2024-10-04] MEDS: metOPROLol sucCINATE 25 MG TAB.SR.24H PO SCH (08:46)
[2024-10-04] MEDS: ASPIRIN 81 MG EC TAB PO SCH (08:47)
[2024-10-04] MEDS: LACTULOSE 20 GM/30 ML UDCUP PO SCH (08:47)
[2024-10-04] MEDS: PLECANATIDE 3 MG PO SCH (09:00)
[2024-10-04 09:22] LABS: BASOPHILS # (AUTO) 0.01 K/uL (0.00-0.20); BASOPHILS % (AUTO) 0.2 % (0.0-5.0); IMMATURE GRANULOCYTE ABSOLUTE 0.05 K/uL (0-1); LYMPHOCYTES # (AUTO) 0.4 K/uL (1.0-4.8); LYMPHOCYTES % (AUTO) 6.6 % (21.0-51.0); MEAN CORPUSCULAR HEMOGLOBIN 30.7 pg (27.0-33.0); MEAN CORPUSCULAR HGB CONC 32.6 g/dL (32.0-36.0); MEAN CORPUSCULAR VOLUME 93.9 fL (79-99); MONOCYTES # (AUTO) 0.1 K/uL (0.1-1.0); MONOCYTES % (AUTO) 1.4 % (3.0-13.0); NEUTROPHILS # (AUTO) 5.7 K/uL (1.8-7.7); PLATELET COUNT (AUTO) 151 K/uL (130-400); RED BLOOD CELL COUNT(AUTO) 3.62 MIL/uL (4.50-6.20); RED CELL DISTRIBUTION WIDTH 14.7 % (11.0-15.5); WHITE BLOOD COUNT (AUTO) 6.3 K/uL (4.8-10.8)
[2024-10-04 09:36] LABS: ALBUMIN 3.1 g/dL (3.5-5.0); BILIRUBIN,TOTAL 1.8 mg/dL (0.2-1.0); CREATININE 1.4 mg/dL (0.5-1.3); PHOSPHORUS 3.1 mg/dL (2.5-4.9); POTASSIUM 3.3 mmol/L (3.5-5.1); TOTAL PROTEIN, SERUM 6.7 g/dL (6.0-8.3)
[2024-10-04] MEDS: FERROUS SULFATE 325 MG TABLET.DR PO SCH (11:45)
[2024-10-04] MEDS: PSYLLIUM SEED 1 EACH PACKET PO SCH (11:45)
[2024-10-04] MEDS: FISH OIL 1000 MG/CAP PO SCH (11:45)
[2024-10-04] MEDS: MULTIVITAMIN TABLET PO SCH (11:45)
[2024-10-04] MEDS: MAGNESIUM OXIDE 400 MG TABLET PO SCH (11:45)
--- NOTE | 2024-10-04 15:24 | CONS ---
[facility] CONSULTATION NOTE Date Patient Seen: Oct 04, 2024 Time of Visit: 15:23 Supervising Physician: Dr. Joseluis Hardy Reason for Consultation: COPD Exacerbation PROBLEM LIST: Acute CHF exacerbation, POA Acute hypoxic respiratory failure POA Progressive generalized body weakness POA Moderate malnutrition due to above LVEF 55-60%, per echo on 09/28/2024 CHF Stage III diastolic dysfunction, PASP is 53 mmHg, per echo on 09/28/2024 Acute hypoxemic respiratory failure, POA Acute COPD exacerbation, POA Elevated D-dimer, rule out PE and DVT. Anemia chronic disease Acute kidney injury Dehydration Hyperglycemia Obesity, BMI 32 Chronic problem list: CHF, COPD, DM type 2, hypertension, NC, sleep apnea HPI: Patient was an 89-year-old male with a past medical history significant for CHF and Chronic obstructive pulmonary disease, currently being admitted for shortness of breath, during the time of evaluation he is currently on room air, CT showed no signs of PE, bilateral Dopplers were negative for DVT. Patient this time is breathing well, able to hold a conversation without experiencing shortness of breath. Patient states that he is pending evaluation by Physical therapy and wishes to go to rehab, states that for a previous surgery he was disabled and unable to walk for three months however he has regained function of his legs and wishes to go to seek his therapy for further assistance and strengthening exercises. Patient continues on vancomycin and azithromycin at this time as well as nebulizer treatments and is diuresing well. We will continue to follow the patient during this admission, no changes to medical management today, we agree with the patient's request that he would benefit from physical therapy in his SNF setting. PAST MEDICAL HX: see above PAST SURGICAL HX: noncontributory SOCIAL HISTORY: No tobacco, ETOH, or illicit drug use Coded Allergies: Penicillins (Unverified Allergy, Intermediate, RASH, 07/29/16) penicillin G (Unverified Allergy, Unknown, 05/10/20) pneumococcal vaccine (Unverified Allergy, Unknown, 05/10/20) REVIEW OF SYSTEMS: 12 point ROS reviewed with patient. Pertinent positives mentioned above. Otherwise negative. PHYSICAL EXAM: GENERAL: alert, weak, awake oriented x 3 HEENT: EOMI, Sclera non icteric, moist mucosa NECK: Supple, no JVD, trachea midline LUNGS: Clear breath sounds bilaterally. No wheezes HEART: Regular rate and rhythm. Normal S1 and S2, without murmurs ABD: Abdomen soft, nontender. Bowel sounds present EXT: No clubbing cyanosis or edema NEURO: Alert and oriented to person, follows commands Vital Signs (last 8hr) Date Time Temp Pulse Resp B/P (MAP) Pulse Ox O2 Delivery O2 Flow Rate FiO2 10/04/24 12:04 97.3 76 13 160/67 98 Room Air* 0 21 10/04/24 11:09 65 19 N/Cannula Low lpm 2.0 28 10/04/24 11:07 65 19 10/04/24 07:37 97.5 67 19 123/60 97 Room Air* 0 21 10/04/24 07:34 69 19 10/04/24 07:31 69 19 N/Cannula Low lpm 2.0 28 LABS: Hematology Labs: Test 10/04/24 09:03 Range/Units White Blood Count 6.3 4.8-10.8 K/uL Red Blood Count 3.62 L 4.50-6.20 MIL/uL Hemoglobin 11.1 L 14.0-18.0 g/dL Hematocrit 34.0 L 42-54 % Mean Corpuscular Volume 93.9 79-99 fL Mean Corpuscular Hemoglobin 30.7 27.0-33.0 pg Mean Corpuscular Hemoglobin Concent 32.6 32.0-36.0 g/dL Red Cell Distribution Width 14.7 11.0-15.5 % Platelet Count 151 130-400 K/uL Mean Platelet Volume 10.3 7.5-10.5 fL Immature Granulocyte % (Auto) 0.8 0-1 % Neutrophils (%) (Auto) 91.0 H 40.0-77.0 % Lymphocytes (%) (Auto) 6.6 L 21.0-51.0 % Monocytes (%) (Auto) 1.4 L 3.0-13.0 % Eosinophils (%) (Auto) 0.0 0.0-8.0 % Basophils (%) (Auto) 0.2 0.0-5.0 % Neutrophils # (Auto) 5.7 1.8-7.7 K/uL Lymphocytes # (Auto) 0.4 L 1.0-4.8 K/uL Monocytes # (Auto) 0.1 0.1-1.0 K/uL Eosinophils # (Auto) 0.00 0.00-0.70 K/uL Basophils # (Auto) 0.01 0.00-0.20 K/uL Absolute Immature Granulocyte (auto 0.05 0-1 K/uL Nucleated Red Blood Cells 0.0 0.0-0.19 % Chemistry Labs: Test 10/04/24 12:01 10/04/24 09:03 10/02/24 23:25 Range/Units Whole Blood Glucose 135 H 70-110 MG/DL Bedside Glucose Comment Notified Nurse Sodium Level 140 136-145 mmol/L Potassium Level 3.3 L 3.5-5.1 mmol/L Chloride Level 103 101-111 mmol/L Carbon Dioxide Level 29 21-32 mmol/L Blood Urea Nitrogen 33 H 7-18 mg/dL Creatinine 1.4 H 0.5-1.3 mg/dL Glomerular Filtration Rate Calc 48 >90 mL/min Random Glucose 170 H 70-105 mg/dL Total Calcium 8.6 8.5-10.1 mg/dL Phosphorus Level 3.1 2.5-4.9 mg/dL Magnesium Level 2.00 1.80-2.40 mg/dL Total Bilirubin 1.8 H 0.2-1.0 mg/dL Aspartate Amino Transf (AST/SGOT) 17 10-37 U/L Alanine Aminotransferase (ALT/SGPT) 35 12-78 U/L Alkaline Phosphatase 82 50-136 U/L Total Protein 6.7 6.0-8.3 g/dL Albumin 3.1 L 3.5-5.0 g/dL Lactic Acid Level 1.3 0.8-2.5 mmol/L Total Creatine Kinase 59 21-232 U/L Troponin I High Sensitivity 26 4-75 ng/L B-Type Natriuretic Peptide 312 H 0-100 pg/mL Procalcitonin < 0.05 L 0.05-0.5 ng/mL Coagulation Labs: Test 10/02/24 23:25 Range/Units Prothrombin Time 20.6 H 9.6-11.6 SEC Prothromb Time International Ratio 2.09 H 0.85-1.15 Activated Partial Thromboplast Time 31.5 26.3-35.5 SEC D-Dimer Quantitative (PE/DVT) 1298 *H 0-500 ng/mL DIAGNOSTICS / RADIOLOGY RESULTS: [ ] PLAN NEURO: Minimize central acting medications as possible. Maintain fall precautions, adequate lighting during the day PULMONARY: Supplemental 02 as needed. Maintain aspiration precautions at all times CARDIOVASCULAR: Follow hemodynamics. Vital signs per facility protocol GI & NUTRITION: Continue with nutritional support. Continue stool softeners and laxatives as needed. KIDNEYS & ELECTROLYTES: Strict monitoring of intake, output and overall fluid balance. Avoid nephrotoxic medications to the extent possible. Medications to be dosed according to renal function. Monitor electrolytes and replace as needed ENDOCRINE: Maintain blood glucose between 100-180 at all times. Hypoglycemia protocol in place INFECTIOUS DISEASE: Trend temperature, WBC and procalcitonin level Follow cultures, deescalate antibiotics as soon as possible. Panculture if new onset fever ONCOLOGY/HEMATOLOGY/COAGULATION: Monitor for s/s of bleeding Monitor hemoglobin, coagulation studies as needed SKIN: Pressure ulcer prevention per facility protocol Specialty mattress ORTHO/REHAB: Continue PT/OT Prophylaxis: Continue GI and DVT prophylaxis Code Status: Full Resuscitation Disposition: TBD Other: Total patient care time exceeds 35 minutes excluding all procedures. AZAEL ALVES Oct 04, 2024 15:24
--- NOTE | 2024-10-04 17:01 | PN ---
[facility] PROGRESS NOTE Date of Service: Oct 04, 2024 Time of Service: 16:39 SUBJECTIVE: [10/02 Mr. Ivory is a 81-year-old male with a history of CHF, COPD, CAD, DM type 2, hypertension, DC, sleep apnea, and chronic back pain who presented to [facility] ED for evaluation of shortness of breath. The patient denied chest pain, fevers, any other pain, problem or concern. Patient is pending chest x-ray, CT chest, and venous Doppler results. Labs: BNP 312. D-dimer a 1298. Troponin negative. PO2 65.5. In ED patient was administered Bumex1 mg IV, vancomycin IV, and Aztreonem. ED physician request patient be admitted with the diagnosis of CHF exacerbation. Patient was admitted under the [facility] hospitalist team. I went to assess the patient at bedside. RN reports that patient has voided a 1500 mL after the Bumex administration. Patient's breathing was even, unl abored, on home CPAP, in no distress. I informed the patient of remarkable labs, diagnostics, and plan of care. The patient verbalized understanding and is in agreement with the plan. Plan and assessment are listed below 10/03 patient was seen by nurse practitioner and physician during rounding in the emergency department in room ED 15 lying in the bed. Family members/ at the bedside. Nurse practitioner was also able to talk to the daughter over the phone. Home medication were reconciled. Patient stated that for the past two weeks he has been getting weaker and weaker and that he is not as he used to be 2 to 3 weeks ago. Prior patient was independent now he is very weak and barely his Lexiscan hold him. Patient is requesting if he could be this time admitted to the rehab. PT was consulted and case management consulted as well. Patient continues to be on 2 L nasal cannula satting at 98%. Obstetrics Nurse Practitioner was consulted for further evaluation. We will monitor patient in the meantime. A.m. labs] 10/04/2024 - patient is seen in room ED 15, patient is alert, awake, oriented to time place person. Patient expresses that he feels better compared to the day he got admitted and mentioned about having very good sleep. Patient is currently saturating at 98% on2 L nasal cannula. Pulmonology, Nephrology, Cardiology has been consulted on the case and we will follow their recommenda tions. Patient seems clinically better and lung V/Q scan has not been done yet, Lovenox will be continued. Patient is otherwise hemodynamically stable. Patient's creatinine has been in improving, patient will be monitored closely. REVIEW OF SYSTEMS 12-point ROS reviewed with the patient. All pertinent positives mentioned above. Otherwise negative, noncontributory, non-pertinent. PHYSICAL EXAM GENERAL APPEARANCE: The patient is awake, alert, and oriented, in no acute cardiopulmonary distress. NEUROLOGICAL: Cranial nerves II-XII grossly intact. Motor is 5/5 in bilateral upper and lower extremities proximal to distal. No sensory deficits. HEENT: Face is symmetric. Pupils are equal and reactive. Extraocular movements are intact. NECK: Supple. No JVD. No thyromegaly. No submental, submandibular, pre-/postau ricular, occipital or supraclavicular lymphadenopathy. CHEST: Normal chest expansion. No Telemetry. LUNGS: Crackles. Breathing is even and unlabored, on CPAP. CARDIOVASCULAR: Regular. S1 and S2 normal. No appreciable rubs, murmurs or gallops. ABDOMEN: Soft, nontender, and nondistended. There is no rebound, voluntary guarding, or rigidity. : Deferred. No Koch. EXTREMITIES: +1 edema. No cyanosis. No clubbing. Good capillary refill. SKIN: No skin breakdown. Vital Signs (last 8hr) Date Time Temp Pulse Resp B/P (MAP) Pulse Ox O2 Delivery O2 Flow Rate FiO2 10/04/24 12:04 97.3 76 13 160/67 98 Room Air* 0 21 10/04/24 11:09 65 19 N/Cannula Low lpm 2.0 28 10/04/24 11:07 65 19 LABS: Laboratory: Test 10/04/24 12:01 10/04/24 09:03 10/03/24 01:24 10/03/24 01:04 Range/Units Whole Blood Glucose 135 H 70-110 MG/DL Bedside Glucose Comment Notified Nurse White Blood Count 6.3 4.8-10.8 K/uL Red Blood Count 3.62 L 4.50-6.20 MIL/uL Hemoglobin 11.1 L 14.0-18.0 g/dL Hematocrit 34.0 L 42-54 % Mean Corpuscular Volume 93.9 79-99 fL Mean Corpuscular Hemoglobin 30.7 27.0-33.0 pg Mean Corpuscular Hemoglobin Concent 32.6 32.0-36.0 g/dL Red Cell Distribution Width 14.7 11.0-15.5 % Platelet Count 151 130-400 K/uL Mean Platelet Volume 10.3 7.5-10.5 fL Immature Granulocyte % (Auto) 0.8 0-1 % Neutrophils (%) (Auto) 91.0 H 40.0-77.0 % Lymphocytes (%) (Auto) 6.6 L 21.0-51.0 % Monocytes (%) (Auto) 1.4 L 3.0-13.0 % Eosinophils (%) (Auto) 0.0 0.0-8.0 % Basophils (%) (Auto) 0.2 0.0-5.0 % Neutrophils # (Auto) 5.7 1.8-7.7 K/uL Lymphocytes # (Auto) 0.4 L 1.0-4.8 K/uL Monocytes # (Auto) 0.1 0.1-1.0 K/uL Eosinophils # (Auto) 0.00 0.00-0.70 K/uL Basophils # (Auto) 0.01 0.00-0.20 K/uL Absolute Immature Granulocyte (auto 0.05 0-1 K/uL Nucleated Red Blood Cells 0.0 0.0-0.19 % Sodium Level 140 136-145 mmol/L Potassium Level 3.3 L 3.5-5.1 mmol/L Chloride Level 103 101-111 mmol/L Carbon Dioxide Level 29 21-32 mmol/L Blood Urea Nitrogen 33 H 7-18 mg/dL Creatinine 1.4 H 0.5-1.3 mg/dL Glomerular Filtration Rate Calc 48 >90 mL/min Random Glucose 170 H 70-105 mg/dL Total Calcium 8.6 8.5-10.1 mg/dL Phosphorus Level 3.1 2.5-4.9 mg/dL Magnesium Level 2.00 1.80-2.40 mg/dL Total Bilirubin 1.8 H 0.2-1.0 mg/dL Aspartate Amino Transf (AST/SGOT) 17 10-37 U/L Alanine Aminotransferase (ALT/SGPT) 35 12-78 U/L Alkaline Phosphatase 82 50-136 U/L Total Protein 6.7 6.0-8.3 g/dL Albumin 3.1 L 3.5-5.0 g/dL Blood Gas Specimen Type Arterial Arterial Blood pH 7.457 H 7.350-7.450 Arterial Blood Partial Pressure CO2 33 L 35-48 mmHg Arterial Blood Partial Pressure O2 65.5 L 83.0-108.0 mmHg Arterial Blood HCO3 22.9 21.0-28.0 mmol/L Arterial Blood Oxygen Saturation 94.0 94.0-98.0 % Arterial Blood Base Excess -0.2 -2.0-3.0 mmol/L Blood Gas Temperature 37.0 35.5-37.0 CELSIUS Blood Gas Flow-by 3.00 0.00-15.00 L/min Blood Gas Vent Mode HOME CPAP ROOM AIR FiO2 32.0 % Blood Gas CPAP 10 cm H2O Blood Gas Specimen Comment RR RN Urine Color LIGHT-YELLOW YELLOW Urine Appearance CLEAR CLEAR Urine pH 5.5 5.0-8.0 Urine Specific [place] 1.012 1.001-1.031 Urine Protein NEGATIVE NEGATIVE mg/dL Urine Glucose (UA) NEGATIVE NEGATIVE mg/dL Urine Ketones NEGATIVE NEGATIVE mg/dL Urine Occult Blood NEGATIVE NEGATIVE Urine Nitrate NEGATIVE NEGATIVE Urine Bilirubin NEGATIVE NEGATIVE mg/dL Urine Urobilinogen 0.2 0.2-1.0 mg/dL Urine Leukocyte Esterase NEGATIVE NEGATIVE Samuel/uL Test 10/02/24 23:25 10/02/24 23:18 Range/Units Prothrombin Time 20.6 H 9.6-11.6 SEC Prothromb Time International Ratio 2.09 H 0.85-1.15 Activated Partial Thromboplast Time 31.5 26.3-35.5 SEC D-Dimer Quantitative (PE/DVT) 1298 *H 0-500 ng/mL Lactic Acid Level 1.3 0.8-2.5 mmol/L Total Creatine Kinase 59 21-232 U/L Troponin I High Sensitivity 26 4-75 ng/L B-Type Natriuretic Peptide 312 H 0-100 pg/mL Procalcitonin < 0.05 L 0.05-0.5 ng/mL Influenza Type A Antigen Negative For Type A NEGATIVE Influenza Type B Antigen Negative For Type B NEGATIVE SARS-CoV-2, RNA, NAAT NEGATIVE SARS CoV-2 NEGATIVE Current Medications Medications (Trade) Dose Ordered Sig/Reji Route PRN Reason Start Time Stop Time Status Last Admin Dose Admin Acetaminophen (TYLenol 325MG TAB) 650 mg Q6H PRN PO FEVER/MILD PAIN LEVEL 1-3 10/03/24 01:30 11/02/24 01:29 Acetaminophen (TYLenol 650MG SUPPOSITORY) 650 mg Q6H PRN RC FEVER / MILD PAIN 1-3 IF NPO 10/03/24 01:30 11/02/24 01:29 Albuterol (DUOneb) 1 udvial DAILY PRN IH SHORTNESS OF BREATH 10/03/24 15:00 11/02/24 14:59 Albuterol Sulfate (Proventil 0.083% 2.5mg/3ml) 2.5 mg [id number] IH 10/03/24 01:15 11/02/24 01:14 10/04/24 11:07 2.5 MG Aspirin (Aspirin 81mg Ec Tab) 81 mg DAILY PO 10/04/24 09:00 11/03/24 08:59 10/04/24 08:47 81 MG Atorvastatin Calcium (LIPItor 40MG) 40 mg HS PO 10/03/24 21:00 11/02/24 20:59 10/03/24 21:26 40 MG Aztreonam (Azactam) 1 gm Q12H IVPB 10/03/24 01:00 10/13/24 00:59 10/04/24 14:31 1 GM Bumetanide (Bumex 1mg Tab) 1 mg BID PO 10/03/24 21:00 10/04/24 08:02 DC 10/03/24 21:23 1 MG Bumetanide (Bumex 1mg Vial) 1 mg BID IVP 10/03/24 13:00 11/02/24 12:59 10/04/24 08:47 1 MG Buspirone HCl (BUspar) 10 mg BID PO 10/03/24 21:00 11/02/24 20:59 10/04/24 08:47 10 MG Docusate Sodium (COLace 100MG CAP) 100 mg BID PRN PO c 10/03/24 01:30 11/02/24 01:29 Enoxaparin Sodium (Lovenox) 40 mg DAILY SQ 10/03/24 09:00 11/02/24 08:59 10/04/24 08:48 40 MG Famotidine (Pepcid 20mg Vial) 20 mg Q48H IV 10/03/24 09:00 11/02/24 08:59 10/03/24 10:00 20 MG Ferrous Sulfate (Ferrous Sulfate) 325 mg NOON PO 10/04/24 12:00 11/03/24 11:59 10/04/24 11:45 325 MG Fish Oil (Fish Oil 1000 Mg/Cap) 1,000 mg NOON PO 10/04/24 12:00 11/03/24 11:59 10/04/24 11:45 1,000 MG Home Med (Home Medication) (Plecanatide (Trulance) 3 MG TAB) DAILY PO 10/04/24 09:00 11/03/24 08:59 Hydroxyzine HCl (ATArax 25MG TAB) 25 mg DAILY PRN PO ANXIETY 10/03/24 15:00 11/02/24 14:59 Insulin Human Regular (humuLIN R 100 UNIT/ML 3ML) INSULIN SLIDING SCAL... ACHS SQ 10/03/24 07:30 11/02/24 07:29 Ipratropium [place] (AtrovENT UD) 0.5 mg [id number] IH 10/03/24 01:15 11/02/24 01:14 10/04/24 11:07 0.5 MG Labetalol HCl (TRANdate 20MG SYG) 10 mg Q2H PRN IV SBP GREATER THAN 160 10/03/24 01:30 11/02/24 01:29 Lactulose (Constulose 20gm/ 30ml Udcup) 10 gm DAILY PO 10/04/24 09:00 11/03/24 08:59 10/04/24 08:47 10 GM Lactulose (Constulose 20gm/ 30ml Udcup) 20 gm Q6H PRN PO CONSTIPATION 10/03/24 01:30 11/02/24 01:29 10/03/24 22:21 20 GM Magnesium Oxide (Mag-Ox) 400 mg NOON PO 10/04/24 12:00 11/03/24 11:59 10/04/24 11:45 400 MG Methylprednisolone Sodium Succinate (Solu-medROL 40MG) 60 mg Q8H IVP 10/03/24 08:00 11/02/24 07:59 10/04/24 08:46 60 MG Metoprolol Succinate (TopROL XL) 25 mg DAILY PO 10/04/24 09:00 11/03/24 08:59 10/04/24 08:46 25 MG Metoprolol Tartrate (loprESSOR) 25 mg DAILY15 PO 10/03/24 15:00 10/04/24 08:03 DC 10/03/24 16:46 25 MG Multivitamins Therapeutic (Multivitamin Tablet) 1 tab NOON PO 10/04/24 12:00 11/03/24 11:59 10/04/24 11:45 1 TAB Nifedipine (adALAT 30MG) 60 mg DAILY PO 10/03/24 09:00 11/02/24 08:59 10/04/24 08:47 60 MG Nitroglycerin (Nitrostat) 0.4 mg AD SL 10/03/24 15:00 11/02/24 14:59 Ondansetron HCl (zoFRAN 4MG INJ) 4 mg Q6H PRN IVP NAUSEA/VOMITING 10/03/24 01:30 11/02/24 01:29 Pantoprazole Sodium (PROTonix 40MG TAB) 40 mg ACBKFST PO 10/04/24 07:30 11/03/24 07:29 10/04/24 08:46 40 MG Psyllium Hydrophilic Mucilloid (Metamucil) 1 tbs NOON PO 10/04/24 12:00 11/03/24 11:59 10/04/24 11:45 1 TBS Ranolazine (Ranexa) 500 mg BID PO 10/03/24 21:00 11/02/24 20:59 10/04/24 08:46 500 MG Spironolactone (Aldactone 25mg) 12.5 mg DAILY PO 10/03/24 09:00 11/02/24 08:59 10/04/24 08:49 12.5 MG Tamsulosin HCl (FloMAX) 0.4 mg HS PO 10/03/24 21:00 11/02/24 20:59 10/03/24 21:24 0.4 MG Temazepam (restORIL 15 MG CAP) 15 mg HS PRN PO INSOMNIA/SLEEP 10/03/24 01:30 11/02/24 01:29 10/03/24 22:17 15 MG Vancomycin HCl (Vancomycin 750mg) 750 mg Q24H IVPB 10/04/24 02:00 10/14/24 01:59 3/11/25 03:26 750 MG Vancomycin HCl (Vancomycin Protocol) 1 each AD IV 10/03/24 01:00 10/17/24 00:59 DIAGNOSTICS / RADIOLOGY: [ ] ASSESSMENT: Acute CHF exacerbation, POA Acute hypoxic respiratory failure POA Progressive generalized body weakness POA Moderate malnutrition due to above LVEF 55-60%, per echo on 09/28/2024 CHF Stage III diastolic dysfunction, PASP is 53 mmHg, per echo on 09/28/2024 Acute hypoxemic respiratory failure, POA Acute COPD exacerbation, POA Elevated D-dimer, rule out PE and DVT. Anemia chronic disease Acute kidney injury Dehydration Hyperglycemia Obesity, BMI 32 Chronic problem list: CHF, COPD, DM type 2, hypertension, DC, sleep apnea PLAN: Acute CHF exacerbation CHF Stage III diastolic dysfunction, PASP is 53 mmHg, per echo on 09/28/2024 Supplemental oxygen as needed keep saturation above 92% - use nasal cannula or non-rebreather mask as needed Continue IV Bumex and strictly monitor I's and O's Follow cardiology recommendations Continue [id number] mg p.o. Continue [id number] mg p.o. Continue Ranexa 500 mg b.i.d. p.o. Continue atorvastatin 40 mg p.o. Continue nifedipine 60 mg daily Continue spironolactone 12.5 mg daily Acute hypoxic respiratory failure Maintain the saturation above 92% Use inhalers, nebulizers as needed Continue Solu-Medrol 60 mg Q8 IV Follow up pulmonology recommendations Acute kidney injury Monitor renal function Strict Is&Os Follow Nephrology recommendations Physical therapy consulted for evaluation Case management consulted for disposition to sniff versus rehab A.m. labs Venous Doppler negative Chest CT negative GI and DVT prophylaxis. ATTESTATION BY PHYSICIAN I have seen and examined the patient. I reviewed the documentation, medical decision making, and treatment plan as noted by the resident provider above. I agree with the findings and plan of care. Nam Wakefield MD, KEERTI K MD Oct 04, 2024 17:01
[2024-10-04] MEDS: LAbetaLOL 20MG SYG IV PRN (23:56)
[2024-10-05] VITALS (13 sets, daily range): BP systolic 124–163; BP diastolic 66–76; PULSE 59–74; RESP 18–22; TEMP 97.6–98.1; O2SAT 95–98
[2024-10-05] MEDS: hydrOXYzine 25 MG TABLET PO PRN (02:25)
[2024-10-05 06:26] LABS: BASOPHILS # (AUTO) 0.01 K/uL (0.00-0.20); BASOPHILS % (AUTO) 0.1 % (0.0-5.0); HEMATOCRIT 31.1 % (42-54); IMMATURE GRANULOCYTE ABSOLUTE 0.09 K/uL (0-1); LYMPHOCYTES # (AUTO) 0.4 K/uL (1.0-4.8); LYMPHOCYTES % (AUTO) 4.1 % (21.0-51.0); MEAN CORPUSCULAR HEMOGLOBIN 30.7 pg (27.0-33.0); MEAN CORPUSCULAR HGB CONC 33.1 g/dL (32.0-36.0); MEAN CORPUSCULAR VOLUME 92.6 fL (79-99); MONOCYTES # (AUTO) 0.2 K/uL (0.1-1.0); NEUTROPHILS # (AUTO) 8.5 K/uL (1.8-7.7); NEUTROPHILS % (AUTO) 92.8 % (40.0-77.0); PLATELET COUNT (AUTO) 129 K/uL (130-400); RED BLOOD CELL COUNT(AUTO) 3.36 MIL/uL (4.50-6.20); WHITE BLOOD COUNT (AUTO) 9.1 K/uL (4.8-10.8)
[2024-10-05 06:31] LABS: CREATININE 1.5 mg/dL (0.5-1.3); POTASSIUM 3.2 mmol/L (3.5-5.1)
--- NOTE | 2024-10-05 10:56 | CONS ---
[facility] CARDIOLOGY CONSULTATION REPORT Cardiology consultation note dictated for Laure Morgan MD Primary lumber press operator: Maury Canales MD Date Patient Seen: Oct 05, 2024 Requesting Physician: Romy Landis MD Reason for Consultation: CHF exacerbation History of Present Illness: This is an 89-year-old male with a past medical history of hypertension, dyslipidemia, permanent atrial fibrillation on chronic anticoagulation with warfarin monitored at the CT, CAD s/p CABGx2 (GREER-LAD and SVG-D1) in 10/2000, documented occlusion of the GREER graft s/p BMS to the Proximal LAD 09/2015 with Apical Infarct and No Evidence of Ischemia on Cardiolite Stress Test in 07/2016, 2D Echo on 09/28/2024 with an EF of 55-60%, stage III diastolic dysfunction,severe biatrial dilation, no regional wall motion abnormalities noted, severe TR with a PASP of 53 mmHg, Abdominal Aortic and Right Iliac Aneurysms s/p Endoluminal Graft Placement done 02/2017, ASHVIN noncompliant with CPAP therapy, CKD stage IIIA, Osteoarthritis, Esophageal Reflux, and recent discharge on 10/01/2024 for CHF who presented to the ED with shortness of breath with or without exertion, orthopnea, and PND of one day in duration prompting the patient to seek medical attention. Cardiology has been consulted for recommendations. BNP of 312 on admission. Chest x-ray demonstrated pulmonary vascular congestion with central bilateral perihilar edema consistent with CHF. CT of the chest was negative for acute findings. D-dimer was elevated at 1298. Bilateral lower extremity venous Doppler was negative for DVT. Patient has been maintained on Bumex 1 mg IV b.i.d. and Aldactone 12.5 mg daily. The patient voices improvement in symptoms. Pertinent negatives included fever, chills, headache, dizziness, syncope, chest pain, chest pressure, palpitations, or lower extremity/swelling. Past Medical History: As per HPI and summarized below Past Surgical History: As per HPI Family History: Noncontributory Social History: The patient lives with family. Habits: The patient denies alcohol, tobacco, or illicit drug use Home Meds: Bumex 1 mg p.o. b.i.d. Metoprolol succinate 25 mg daily Nifedipine 60 mg daily Aspirin 81 mg daily Atorvastatin 40 mg nightly Buspirone 10 mg b.i.d. Ferrous sulfate 325 mg daily Hydroxyzine 25 mg p.o. daily p.r.n. anxiety Magnesium oxide 400 mg daily Multivitamin daily Nitroglycerin 0.4 mg sublingual as directed Fish oil 1000 mg daily Pantoprazole 40 mg daily Psyllium husk 0.8 g daily Ranexa 500 mg b.i.d. Tamsulosin 0.4 mg q.h.s. Warfarin 3 mg q.h.s. Current Meds: Current Medications Medications Dose Ordered Sig/Reji Start Time Stop Time Status Last Admin Vancomycin HCl 1 each AD 10/03/24 01:00 10/17/24 00:59 Aztreonam 1 gm Q12H 10/03/24 01:00 10/13/24 00:59 10/04/24 23:57 Vancomycin HCl 750 mg Q24H 10/04/24 02:00 10/14/24 01:59 10/05/24 02:25 Albuterol Sulfate 2.5 mg [id number] 10/03/24 01:15 11/02/24 01:14 10/05/24 07:09 Ipratropium Clark 0.5 mg [id number] 10/03/24 01:15 11/02/24 01:14 10/05/24 07:09 Enoxaparin Sodium 40 mg DAILY 10/03/24 09:00 11/02/24 08:59 10/05/24 09:09 Acetaminophen 650 mg Q6H PRN 10/03/24 01:30 11/02/24 01:29 Acetaminophen 650 mg Q6H PRN 10/03/24 01:30 11/02/24 01:29 Lactulose 20 gm Q6H PRN 10/03/24 01:30 11/02/24 01:29 10/03/24 22:21 Docusate Sodium 100 mg BID PRN 10/03/24 01:30 11/02/24 01:29 Temazepam 15 mg HS PRN 10/03/24 01:30 11/02/24 01:29 10/05/24 00:03 Ondansetron HCl 4 mg Q6H PRN 10/03/24 01:30 11/02/24 01:29 Labetalol HCl 10 mg Q2H PRN 10/03/24 01:30 11/02/24 01:29 10/04/24 23:56 Insulin Human Regular INSULIN SLIDING SCAL... ACHS 10/03/24 07:30 11/02/24 07:29 Famotidine 20 mg Q48H 10/03/24 09:00 11/02/24 08:59 10/05/24 09:03 Methylprednisolone Sodium Succinate 60 mg Q8H 10/03/24 08:00 11/02/24 07:59 10/05/24 09:03 Bumetanide 1 mg BID 10/03/24 13:00 11/02/24 12:59 10/05/24 09:03 Spironolactone 12.5 mg DAILY 10/03/24 09:00 11/02/24 08:59 10/05/24 09:05 Nifedipine 60 mg DAILY 10/03/24 09:00 11/02/24 08:59 10/05/24 09:04 Aspirin 81 mg DAILY 10/04/24 09:00 11/03/24 08:59 10/05/24 09:03 Atorvastatin Calcium 40 mg HS 10/03/24 21:00 11/02/24 20:59 10/04/24 20:44 Hydroxyzine HCl 25 mg DAILY PRN 10/03/24 15:00 11/02/24 14:59 10/05/24 02:25 Lactulose 10 gm DAILY 10/04/24 09:00 11/03/24 08:59 10/05/24 08:22 Metoprolol Succinate 25 mg DAILY 10/04/24 09:00 11/03/24 08:59 10/05/24 09:04 Nitroglycerin 0.4 mg AD 10/03/24 15:00 11/02/24 14:59 Pantoprazole Sodium 40 mg ACBKFST 10/04/24 07:30 11/03/24 07:29 10/05/24 06:44 Ranolazine 500 mg BID 10/03/24 21:00 11/02/24 20:59 10/05/24 09:03 Tamsulosin HCl 0.4 mg HS 10/03/24 21:00 11/02/24 20:59 10/04/24 20:44 Buspirone HCl 10 mg BID 10/03/24 21:00 11/02/24 20:59 10/05/24 09:04 Ferrous Sulfate 325 mg NOON 10/04/24 12:00 11/03/24 11:59 10/04/24 11:45 Albuterol 1 udvial DAILY PRN 10/03/24 15:00 11/02/24 14:59 Magnesium Oxide 400 mg NOON 10/04/24 12:00 11/03/24 11:59 10/04/24 11:45 Multivitamins Therapeutic 1 tab NOON 10/04/24 12:00 11/03/24 11:59 10/04/24 11:45 Fish Oil 1,000 mg NOON 10/04/24 12:00 11/03/24 11:59 10/04/24 11:45 Home Med (Plecanatide (Trulance) 3 MG TAB) DAILY 10/04/24 09:00 11/03/24 08:59 Psyllium Hydrophilic Mucilloid 1 tbs NOON 10/04/24 12:00 11/03/24 11:59 10/04/24 11:45 Review of Systems: CONST: No fever, fatigue, or weight changes. EYES: No recent vision problems. ENT: No congestion, ear pain, or sore throat. C/V: No chest pain, palpitations, or edema. RESP: No cough, congestion, wheezing or shortness of breath. GI: No abdominal pain, nausea, vomiting, constipation, or diarrhea. : No incontinence or dysuria. SKIN: No rash. NEURO: No headache, focal numbness or weakness, dizziness, or seizures. PSYCH: No depression or anxiety. HEME: No abnormal bruising or bleeding. LYMPH: No swollen glands. Physical Examination: GENERAL: No acute distress. HEAD: Normal with no signs of head trauma. EYES: PERRLA, EOMI, conjunctiva and sclera normal. ENT: Hearing grossly intact, normal oropharynx. NECK: Supple without JVD. There is no tenderness, lymphadenopathy, or masses. No thyromegaly. Normal carotid upstrokes without bruits. LUNGS: Crackles to mid and lower bases bilaterally HEART: Irregularly irregular rate and rhythm. Normal S1 and S2 without murmurs, gallop or rub. VASC: Peripheral pulses +2 bilaterally. ABD: Bowel sounds normal, soft, nontender, no masses, no organomegaly. No audible bruits. : Not examined LYMPH: No lymphadenopathy noted. EXT: No clubbing, cyanosis or edema. SKIN: No rashes or lesions noted. NEURO: Awake, alert, and oriented x3. No focal sensory or strength deficits noted. Vital Signs (last 8hr) Date Time Temp Pulse Resp B/P (MAP) Pulse Ox O2 Delivery O2 Flow Rate FiO2 10/05/24 08:00 97.7 64 22 145/69 96 Nasal Cannula 2.0 10/05/24 07:12 59 18 10/05/24 07:10 59 18 10/05/24 04:49 98.1 74 20 163/69 96 CPAP Laboratory: Hematology Labs: Test 10/05/24 06:10 Range/Units White Blood Count 9.1 # 4.8-10.8 K/uL Red Blood Count 3.36 L 4.50-6.20 MIL/uL Hemoglobin 10.3 L 14.0-18.0 g/dL Hematocrit 31.1 L 42-54 % Mean Corpuscular Volume 92.6 79-99 fL Mean Corpuscular Hemoglobin 30.7 27.0-33.0 pg Mean Corpuscular Hemoglobin Concent 33.1 32.0-36.0 g/dL Red Cell Distribution Width 15.0 11.0-15.5 % Platelet Count 129 L 130-400 K/uL Mean Platelet Volume 10.3 7.5-10.5 fL Immature Granulocyte % (Auto) 1.0 0-1 % Neutrophils (%) (Auto) 92.8 H 40.0-77.0 % Lymphocytes (%) (Auto) 4.1 L 21.0-51.0 % Monocytes (%) (Auto) 2.0 L 3.0-13.0 % Eosinophils (%) (Auto) 0.0 0.0-8.0 % Basophils (%) (Auto) 0.1 0.0-5.0 % Neutrophils # (Auto) 8.5 H 1.8-7.7 K/uL Lymphocytes # (Auto) 0.4 L 1.0-4.8 K/uL Monocytes # (Auto) 0.2 0.1-1.0 K/uL Eosinophils # (Auto) 0.00 0.00-0.70 K/uL Basophils # (Auto) 0.01 0.00-0.20 K/uL Absolute Immature Granulocyte (auto 0.09 0-1 K/uL Nucleated Red Blood Cells 0.0 0.0-0.19 % Chemistry Labs: Test 10/05/24 06:10 10/05/24 05:42 10/04/24 12:01 10/04/24 09:03 Range/Units Sodium Level 137 136-145 mmol/L Potassium Level 3.2 L 3.5-5.1 mmol/L Chloride Level 101 101-111 mmol/L Carbon Dioxide Level 28 21-32 mmol/L Blood Urea Nitrogen 40 H 7-18 mg/dL Creatinine 1.5 H 0.5-1.3 mg/dL Glomerular Filtration Rate Calc 45 >90 mL/min Random Glucose 164 H 70-105 mg/dL Total Calcium 8.4 L 8.5-10.1 mg/dL Whole Blood Glucose 161 H 70-110 MG/DL Bedside Glucose Comment Notified Nurse Phosphorus Level 3.1 2.5-4.9 mg/dL Magnesium Level 2.00 1.80-2.40 mg/dL Total Bilirubin 1.8 H 0.2-1.0 mg/dL Aspartate Amino Transf (AST/SGOT) 17 10-37 U/L Alanine Aminotransferase (ALT/SGPT) 35 12-78 U/L Alkaline Phosphatase 82 50-136 U/L Total Protein 6.7 6.0-8.3 g/dL Albumin 3.1 L 3.5-5.0 g/dL Diagnostics / Radiology: Impression and Plan: 1. Acute on chronic diastolic congestive heart failure (LVEF: 55-60% by echo done 09/28/2024) 2. Acute respiratory distress 3. Permanent atrial fibrillation, on anticoagulation 4. HTN 5. HLP 6. CKD stage 3A 7. CAD status post to the CABG (GREER-LAD, SVG-D1) done in 10/2000, s/p PCI with BMS placement to the proximal LAD done in 09/2015 8. Severe tricuspid regurgitation 9. Pulmonary hypertension (who group II) Acute on chronic diastolic congestive heart failure BNP 312 Chest x-ray mild pulmonary vascular congestion with central bilateral perihilar edema -Transition to Lasix 40mg po BID -Continue Metoprolol succinate 25 mg daily, Nifedipine ER 60 mg daily, and Spironolactone 12.5 mg daily. -Please record strict I/O's, daily weights, and restrict fluids to less than 2.0L/day -Hypokalemia protocol -Chest x-ray in am Chronic atrial fibrillation Controlled ventricular response hr 60-70's -The patient will continue on metoprolol succinate 25 mg daily. -CHADS2 VASc score: 5 points. The patient will continue on Warfarin in order to maintain an INR goal of 2.0-3.0. -DC Lovenox 40mg sq daily. -INR today and in AM -Give Warfarin 3mg po x1 today and assess AM INR for continued dosing. -Please keep the patient on continuous telemetry monitoring and maintain electrolytes within normal parameters. CAD s/p 2V CABG (GREER-LAD, SVG-D1) done in October 2000, s/p PCI with BMS placement to the proximal LAD done in September 2015 -Continue aspirin 81 mg daily, metoprolol succinate 25 mg daily, and atorvastatin 40 mg QHS DOUGIE WOLFE [employer] SALES REPRESENTATIVE Oct 05, 2024 10:56
--- NOTE | 2024-10-05 11:31 | PN ---
[facility] PROGRESS NOTE Date of Service: Oct 05, 2024 Time of Service: 11:23 SUBJECTIVE: 10/02 Mr. Norton is a 89-year-old male with a history of CHF, COPD, CAD, DM type 2, hypertension, ID, sleep apnea, and chronic back pain who presented to [facility] ED for evaluation of shortness of breath. The patient denied chest pain, fevers, any other pain, problem or concern. Patient is pending chest x-ray, CT chest, and venous Doppler results. Labs: BNP 312. D-dimer a 1298. Troponin negative. PO2 65.5. In ED patient was administered Bumex1 mg IV, vancomycin IV, and Aztreonem. ED physician request patient be admitted with the diagnosis of CHF exacerbation. Patient was admitted under the [facility] hospitalist team. I went to assess the patient at bedside. RN reports that patient has voided a 1500 mL after the Bumex administration. Patient's breathing was even, unlabored, on home CPAP, in no distress. I informed the patient of remarkable labs, diagnostics, and plan of care. The patient verbalized understanding and is in agreement with the plan. Plan and assessment are listed below 10/03 patient was seen by nurse practitioner and physician during rounding in the emergency department in room ED 15 lying in the bed. Family members/ at the bedside. Nurse practitioner was also able to talk to the daughter over the phone. Home medication were reconciled. Patient stated that for the past two weeks he has been getting weaker and weaker and that he is not as he used to be 2 to 3 weeks ago. Prior patient was independent now he is very weak and barely his Lexiscan hold him. Patient is requesting if he could be this time admitted to the rehab. PT was consulted and case management consulted as well. Patient continues to be on 2 L nasal cannula satting at 98%. Director Of Blood was consulted for further evaluation. We will monitor patient in the meantime. A.m. labs] 10/04/2024 - patient is seen in room ED 15, patient is alert, awake, oriented to time place person. Patient expresses that he feels better compared to the day he got admitted and mentioned about having very good sleep. Patient is currently saturating at 98% on2 L nasal cannula. Pulmonology, Nephrology, Cardiology has been consulted on the case and we will follow their recomme ndations. Patient seems clinically better and lung V/Q scan has not been done yet, Lovenox will be continued. Patient is otherwise hemodynamically stable. Patient's creatinine has been in improving, patient will be monitored closely. 10/05/2024 - patient is seen in room 423 . Patient is alert, awake, oriented to time place person. Patient had a good sleep last night and is on minimal requirement of oxygen currently of 2 L O2 and saturating at 96%. Pending cardiology recommendations. Respiratory culture came positive for Angie albicans, it might possibly be a contamination . We will follow up with the blood cultures too. Patient is otherwise hemodynamically stable. Creatinine trending at 1.5, will be followed closely . REVIEW OF SYSTEMS 12-point ROS reviewed with the patient. All pertinent positives mentioned above. Otherwise negative, noncontributory, non-pertinent. PHYSICAL EXAM GENERAL APPEARANCE: The patient is awake, alert, and oriented, in no acute cardiopulmonary distress. NEUROLOGICAL: Cranial nerves II-XII grossly intact. Motor is 5/5 in bilateral upper and lower extremities proximal to distal. No sensory deficits. HEENT: Face is symmetric. Pupils are equal and reactive. Extraocular movements are intact. NECK: Supple. No JVD. No thyromegaly. No submental, submandibular, pre-/postauricular, occipital or supraclavicular lymphadenopathy. CHEST: Normal chest expansion. No Telemetry. LUNGS: Crackles. Breathing is even and unlabored, on CPAP. CARDIOVASCULAR: Regular. S1 and S2 normal. No appreciable rubs, murmurs or gallops. ABDOMEN: Soft, nontender, and nondistended. There is no rebound, voluntary guarding, or rigidity. : Deferred. No Koch. EXTREMITIES: +1 edema. No cyanosis. No clubbing. Good capillary refill. SKIN: No skin breakdown. Vital Signs (last 8hr) Date Time Temp Pulse Resp B/P (MAP) Pulse Ox O2 Delivery O2 Flow Rate FiO2 10/05/24 08:00 97.7 64 22 145/69 96 Nasal Cannula 2.0 10/05/24 07:12 59 18 10/05/24 07:10 59 18 10/05/24 04:49 98.1 74 20 163/69 96 CPAP LABS: Laboratory: Test 10/05/24 11:18 10/05/24 06:10 10/04/24 12:01 10/04/24 09:03 Range/Units Whole Blood Glucose 164 H 70-110 MG/DL White Blood Count 9.1 # 4.8-10.8 K/uL Red Blood Count 3.36 L 4.50-6.20 MIL/uL Hemoglobin 10.3 L 14.0-18.0 g/dL Hematocrit 31.1 L 42-54 % Mean Corpuscular Volume 92.6 79-99 fL Mean Corpuscular Hemoglobin 30.7 27.0-33.0 pg Mean Corpuscular Hemoglobin Concent 33.1 32.0-36.0 g/dL Red Cell Distribution Width 15.0 11.0-15.5 % Platelet Count 129 L 130-400 K/uL Mean Platelet Volume 10.3 7.5-10.5 fL Immature Granulocyte % (Auto) 1.0 0-1 % Neutrophils (%) (Auto) 92.8 H 40.0-77.0 % Lymphocytes (%) (Auto) 4.1 L 21.0-51.0 % Monocytes (%) (Auto) 2.0 L 3.0-13.0 % Eosinophils (%) (Auto) 0.0 0.0-8.0 % Basophils (%) (Auto) 0.1 0.0-5.0 % Neutrophils # (Auto) 8.5 H 1.8-7.7 K/uL Lymphocytes # (Auto) 0.4 L 1.0-4.8 K/uL Monocytes # (Auto) 0.2 0.1-1.0 K/uL Eosinophils # (Auto) 0.00 0.00-0.70 K/uL Basophils # (Auto) 0.01 0.00-0.20 K/uL Absolute Immature Granulocyte (auto 0.09 0-1 K/uL Nucleated Red Blood Cells 0.0 0.0-0.19 % Sodium Level 137 136-145 mmol/L Potassium Level 3.2 L 3.5-5.1 mmol/L Chloride Level 101 101-111 mmol/L Carbon Dioxide Level 28 21-32 mmol/L Blood Urea Nitrogen 40 H 7-18 mg/dL Creatinine 1.5 H 0.5-1.3 mg/dL Glomerular Filtration Rate Calc 45 >90 mL/min Random Glucose 164 H 70-105 mg/dL Total Calcium 8.4 L 8.5-10.1 mg/dL Bedside Glucose Comment Notified Nurse Phosphorus Level 3.1 2.5-4.9 mg/dL Magnesium Level 2.00 1.80-2.40 mg/dL Total Bilirubin 1.8 H 0.2-1.0 mg/dL Aspartate Amino Transf (AST/SGOT) 17 10-37 U/L Alanine Aminotransferase (ALT/SGPT) 35 12-78 U/L Alkaline Phosphatase 82 50-136 U/L Total Protein 6.7 6.0-8.3 g/dL Albumin 3.1 L 3.5-5.0 g/dL Current Medications Medications (Trade) Dose Ordered Sig/Reji Route PRN Reason Start Time Stop Time Status Last Admin Dose Admin Acetaminophen (TYLenol 325MG TAB) 650 mg Q6H PRN PO FEVER/MILD PAIN LEVEL 1-3 10/03/24 01:30 11/02/24 01:29 Acetaminophen (TYLenol 650MG SUPPOSITORY) 650 mg Q6H PRN RC FEVER / MILD PAIN 1-3 IF NPO 10/03/24 01:30 11/02/24 01:29 Albuterol (DUOneb) 1 udvial DAILY PRN IH SHORTNESS OF BREATH 10/03/24 15:00 11/02/24 14:59 Albuterol Sulfate (Proventil 0.083% 2.5mg/3ml) 2.5 mg [id number] IH 10/03/24 01:15 11/02/24 01:14 10/05/24 07:09 2.5 MG Aspirin (Aspirin 81mg Ec Tab) 81 mg DAILY PO 10/04/24 09:00 11/03/24 08:59 10/05/24 09:03 81 MG Atorvastatin Calcium (LIPItor 40MG) 40 mg HS PO 10/03/24 21:00 11/02/24 20:59 10/04/24 20:44 40 MG Aztreonam (Azactam) 1 gm Q12H IVPB 10/03/24 01:00 10/13/24 00:59 10/04/24 23:57 1 GM Bumetanide (Bumex 1mg Tab) 1 mg BID PO 10/03/24 21:00 10/04/24 08:02 DC 10/03/24 21:23 1 MG Bumetanide (Bumex 1mg Vial) 1 mg BID IVP 10/03/24 13:00 11/02/24 12:59 10/05/24 09:03 1 MG Buspirone HCl (BUspar) 10 mg BID PO 10/03/24 21:00 11/02/24 20:59 10/05/24 09:04 10 MG Docusate Sodium (COLace 100MG CAP) 100 mg BID PRN PO c 10/03/24 01:30 11/02/24 01:29 Enoxaparin Sodium (Lovenox) 40 mg DAILY SQ 10/03/24 09:00 11/02/24 08:59 10/05/24 09:09 40 MG Famotidine (Pepcid 20mg Vial) 20 mg Q48H IV 10/03/24 09:00 11/02/24 08:59 10/05/24 09:03 20 MG Ferrous Sulfate (Ferrous Sulfate) 325 mg NOON PO 10/04/24 12:00 11/03/24 11:59 10/04/24 11:45 325 MG Fish Oil (Fish Oil 1000 Mg/Cap) 1,000 mg NOON PO 10/04/24 12:00 11/03/24 11:59 10/04/24 11:45 1,000 MG Home Med (Home Medication) (Plecanatide (Trulance) 3 MG TAB) DAILY PO 10/04/24 09:00 11/03/24 08:59 Hydroxyzine HCl (ATArax 25MG TAB) 25 mg DAILY PRN PO ANXIETY 10/03/24 15:00 11/02/24 14:59 10/05/24 02:25 25 MG Insulin Human Regular (humuLIN R 100 UNIT/ML 3ML) INSULIN SLIDING SCAL... ACHS SQ 10/03/24 07:30 11/02/24 07:29 Ipratropium [place] (AtrovENT UD) 0.5 mg [id number] IH 10/03/24 01:15 11/02/24 01:14 10/05/24 07:09 0.5 MG Labetalol HCl (TRANdate 20MG SYG) 10 mg Q2H PRN IV SBP GREATER THAN 160 10/03/24 01:30 11/02/24 01:29 10/04/24 23:56 10 MG Lactulose (Constulose 20gm/ 30ml Udcup) 10 gm DAILY PO 10/04/24 09:00 11/03/24 08:59 10/05/24 08:22 10 GM Lactulose (Constulose 20gm/ 30ml Udcup) 20 gm Q6H PRN PO CONSTIPATION 10/03/24 01:30 11/02/24 01:29 10/03/24 22:21 20 GM Magnesium Oxide (Mag-Ox) 400 mg NOON PO 10/04/24 12:00 11/03/24 11:59 10/04/24 11:45 400 MG Methylprednisolone Sodium Succinate (Solu-medROL 40MG) 60 mg Q8H IVP 10/03/24 08:00 11/02/24 07:59 10/05/24 09:03 60 MG Metoprolol Succinate (TopROL XL) 25 mg DAILY PO 10/04/24 09:00 11/03/24 08:59 10/05/24 09:04 25 MG Metoprolol Tartrate (loprESSOR) 25 mg DAILY15 PO 10/03/24 15:00 10/04/24 08:03 DC 10/03/24 16:46 25 MG Multivitamins Therapeutic (Multivitamin Tablet) 1 tab NOON PO 10/04/24 12:00 11/03/24 11:59 10/04/24 11:45 1 TAB Nifedipine (adALAT 30MG) 60 mg DAILY PO 10/03/24 09:00 11/02/24 08:59 10/05/24 09:04 60 MG Nitroglycerin (Nitrostat) 0.4 mg AD SL 10/03/24 15:00 11/02/24 14:59 Ondansetron HCl (zoFRAN 4MG INJ) 4 mg Q6H PRN IVP NAUSEA/VOMITING 10/03/24 01:30 11/02/24 01:29 Pantoprazole Sodium (PROTonix 40MG TAB) 40 mg ACBKFST PO 10/04/24 07:30 11/03/24 07:29 10/05/24 06:44 40 MG Psyllium Hydrophilic Mucilloid (Metamucil) 1 tbs NOON PO 10/04/24 12:00 11/03/24 11:59 10/04/24 11:45 1 TBS Ranolazine (Ranexa) 500 mg BID PO 10/03/24 21:00 11/02/24 20:59 10/05/24 09:03 500 MG Spironolactone (Aldactone 25mg) 12.5 mg DAILY PO 10/03/24 09:00 11/02/24 08:59 10/05/24 09:05 12.5 MG Tamsulosin HCl (FloMAX) 0.4 mg HS PO 10/03/24 21:00 11/02/24 20:59 10/04/24 20:44 0.4 MG Temazepam (restORIL 15 MG CAP) 15 mg HS PRN PO INSOMNIA/SLEEP 10/03/24 01:30 11/02/24 01:29 10/05/24 00:03 15 MG Vancomycin HCl (Vancomycin 750mg) 750 mg Q24H IVPB 10/04/24 02:00 10/14/24 01:59 10/05/24 02:25 750 MG Vancomycin HCl (Vancomycin Protocol) 1 each AD IV 10/03/24 01:00 10/17/24 00:59 DIAGNOSTICS / RADIOLOGY: [ ] ASSESSMENT: Acute CHF exacerbation, POA Acute hypoxic respiratory failure POA Progressive generalized body weakness POA Moderate malnutrition due to above LVEF 55-60%, per echo on 09/28/2024 CHF Stage III diastolic dysfunction, PASP is 53 mmHg, per echo on 09/28/2024 Acute hypoxemic respiratory failure, POA Acute COPD exacerbation, POA Elevated D-dimer, rule out PE and DVT. Anemia chronic disease Acute kidney injury Dehydration Hyperglycemia Obesity, BMI 32 Chronic problem list: CHF, COPD, DM type 2, hypertension, ID, sleep apnea PLAN: Acute CHF exacerbation CHF Stage III diastolic dysfunction, PASP is 53 mmHg, per echo on 09/28/2024 Supplemental oxygen as needed keep saturation above 92% - use nasal cannula or non-rebreather mask as needed Continue IV Bumex and strictly monitor I's and O's Follow cardiology recommendations Continue mg p.o. Continue mg p.o. Continue Ranexa 500 mg b.i.d. p.o. Continue atorvastatin 40 mg p.o. Continue nifedipine 60 mg daily Continue spironolactone 12.5 mg daily Acute hypoxic respiratory failure Maintain the saturation above 92% Use inhalers, nebulizers as needed Continue Solu-Medrol 60 mg Q8 IV Follow up pulmonology recommendations Acute kidney injury Monitor renal function Strict Is&Os Follow Nephrology recommendations Physical therapy consulted for evaluation Case management consulted for disposition to sniff versus rehab A.m. labs Venous Doppler negative Chest CT negative GI and DVT prophylaxis. ATTESTATION BY PHYSICIAN I have seen and examined the patient. I reviewed the documentation, medical decision making, and treatment plan as noted by the resident provider above. I agree with the findings and plan of care. Nam Wakefield MD, KEERTI K MD Oct 05, 2024 11:31
[2024-10-05] MEDS: PoTASSium chloRIDE 20MEQ ER 20 MEQ ERTAB PO PRN (12:30)
[2024-10-05 13:03] LABS: INR 1.52 (0.85-1.15); PROTHROMBIN TIME 15.5 SEC (9.6-11.6)
--- NOTE | 2024-10-05 15:42 | PN ---
[facility] PROGRESS NOTE Date Patient Seen: Oct 05, 2024 Time of Visit: 15:41 Supervising Physician: Dr. Andrea Peña PROBLEM LIST: Acute hypoxic respiratory failure POA Acute on chronic diastolic heart failure with an LVEF of 55-60% per echocardiogram performed on September 28, 2024 Progressive generalized body weakness POA Moderate malnutrition due to above LVEF 55-60%, per echo on 09/28/2024 CHF Stage III diastolic dysfunction, PASP is 53 mmHg, per echo on 09/28/2024 Acute hypoxemic respiratory failure, POA Acute COPD exacerbation, POA Elevated D-dimer, rule out PE and DVT. Anemia chronic disease Acute kidney injury Dehydration Hyperglycemia Obesity, BMI 32 Chronic problem list: CHF, COPD, DM type 2, hypertension, IA, sleep apnea INTERVAL HISTORY: Patient evaluated at bedside, was comfortable during the evaluation, no acute distress. [facility] following at this time. Currently on 2 L nasal cannula continues on vancomycin and aztreonam. Patient's white count is 6.3, creatinine remains slightly elevated today. We will continue to monitor the patient's respiratory status during this admission, PLAN Follow cardiology recommendations Continue diuresis Continue physical therapy and ambulation Continue supplemental O2 as needed. REVIEW OF SYSTEMS: 12 point ROS reviewed with patient. Pertinent positives mentioned above. Otherwise negative. PHYSICAL EXAM: GENERAL: alert, weak, awake oriented x 3 HEENT: EOMI, Sclera non icteric, moist mucosa NECK: Supple, no JVD, trachea midline LUNGS: Clear breath sounds bilaterally. No wheezes HEART: Regular rate and rhythm. Normal S1 and S2, without murmurs ABD: Abdomen soft, nontender. Bowel sounds present EXT: No clubbing cyanosis or edema NEURO: Alert and oriented to person, follows commands Vital Signs (last 8hr) Date Time Temp Pulse Resp B/P (MAP) Pulse Ox O2 Delivery O2 Flow Rate FiO2 10/05/24 11:57 97.7 67 20 156/66 99 Nasal Cannula 2.0 10/05/24 11:32 64 18 10/05/24 08:00 97.7 64 22 145/69 96 Nasal Cannula 2.0 LABS: Hematology Labs: Test 10/05/24 06:10 Range/Units White Blood Count 9.1 # 4.8-10.8 K/uL Red Blood Count 3.36 L 4.50-6.20 MIL/uL Hemoglobin 10.3 L 14.0-18.0 g/dL Hematocrit 31.1 L 42-54 % Mean Corpuscular Volume 92.6 79-99 fL Mean Corpuscular Hemoglobin 30.7 27.0-33.0 pg Mean Corpuscular Hemoglobin Concent 33.1 32.0-36.0 g/dL Red Cell Distribution Width 15.0 11.0-15.5 % Platelet Count 129 L 130-400 K/uL Mean Platelet Volume 10.3 7.5-10.5 fL Immature Granulocyte % (Auto) 1.0 0-1 % Neutrophils (%) (Auto) 92.8 H 40.0-77.0 % Lymphocytes (%) (Auto) 4.1 L 21.0-51.0 % Monocytes (%) (Auto) 2.0 L 3.0-13.0 % Eosinophils (%) (Auto) 0.0 0.0-8.0 % Basophils (%) (Auto) 0.1 0.0-5.0 % Neutrophils # (Auto) 8.5 H 1.8-7.7 K/uL Lymphocytes # (Auto) 0.4 L 1.0-4.8 K/uL Monocytes # (Auto) 0.2 0.1-1.0 K/uL Eosinophils # (Auto) 0.00 0.00-0.70 K/uL Basophils # (Auto) 0.01 0.00-0.20 K/uL Absolute Immature Granulocyte (auto 0.09 0-1 K/uL Nucleated Red Blood Cells 0.0 0.0-0.19 % Chemistry Labs: Test 10/05/24 15:16 10/05/24 06:10 10/04/24 12:01 10/04/24 09:03 Range/Units Whole Blood Glucose 177 H 70-110 MG/DL Sodium Level 137 136-145 mmol/L Potassium Level 3.2 L 3.5-5.1 mmol/L Chloride Level 101 101-111 mmol/L Carbon Dioxide Level 28 21-32 mmol/L Blood Urea Nitrogen 40 H 7-18 mg/dL Creatinine 1.5 H 0.5-1.3 mg/dL Glomerular Filtration Rate Calc 45 >90 mL/min Random Glucose 164 H 70-105 mg/dL Total Calcium 8.4 L 8.5-10.1 mg/dL Bedside Glucose Comment Notified Nurse Phosphorus Level 3.1 2.5-4.9 mg/dL Magnesium Level 2.00 1.80-2.40 mg/dL Total Bilirubin 1.8 H 0.2-1.0 mg/dL Aspartate Amino Transf (AST/SGOT) 17 10-37 U/L Alanine Aminotransferase (ALT/SGPT) 35 12-78 U/L Alkaline Phosphatase 82 50-136 U/L Total Protein 6.7 6.0-8.3 g/dL Albumin 3.1 L 3.5-5.0 g/dL Coagulation Labs: Test 10/05/24 12:07 Range/Units Prothrombin Time 15.5 H 9.6-11.6 SEC Prothromb Time International Ratio 1.52 H 0.85-1.15 DIAGNOSTICS / RADIOLOGY RESULTS: [ ] PLAN NEURO: Minimize central acting medications as possible. Maintain fall precautions, adequate lighting during the day PULMONARY: Supplemental 02 as needed. Maintain aspiration precautions at all times CARDIOVASCULAR: Follow hemodynamics. Vital signs per facility protocol GI & NUTRITION: Continue with nutritional support. Continue stool softeners and laxatives as needed. KIDNEYS & ELECTROLYTES: Strict monitoring of intake, output and overall fluid balance. Avoid nephrotoxic medications to the extent possible. Medications to be dosed according to renal function. Monitor electrolytes and replace as needed ENDOCRINE: Maintain blood glucose between 100-180 at all times. Hypoglycemia protocol in place INFECTIOUS DISEASE: Trend temperature, WBC and procalcitonin level Follow cultures, deescalate antibiotics as soon as possible. Panculture if new onset fever ONCOLOGY/HEMATOLOGY/COAGULATION: Monitor for s/s of bleeding Monitor hemoglobin, coagulation studies as needed SKIN: Pressure ulcer prevention per facility protocol Specialty mattress ORTHO/REHAB: Continue PT/OT Prophylaxis: Continue GI and DVT prophylaxis Code Status: Full Resuscitation Disposition: TBD Other: Total patient care time exceeds 35 minutes excluding all procedures. AZAEL ALVES Oct 05, 2024 15:41
[2024-10-05] MEDS: WARFARIN SODIUM 1 MG TAB PO SCH (16:54)
[2024-10-05] MEDS: furoSEMIDE 40 MG TABLET PO SCH (17:25)
[2024-10-05] MEDS ORDERED: ENOXAPARIN SODIUM 100 MG/1 ML SQ SCH (17:30)
[2024-10-05] MEDS: BENZONATATE 100 MG CAPSULE PO PRN (18:39)
[2024-10-06] VITALS (15 sets, daily range): BP systolic 130–149; BP diastolic 59–70; PULSE 55–84; RESP 18–20; TEMP 97–98; O2SAT 94–98
[2024-10-06 00:59] LABS: BASOPHILS # (AUTO) 0.02 K/uL (0.00-0.20); BASOPHILS % (AUTO) 0.2 % (0.0-5.0); HEMATOCRIT 33.1 % (42-54); IMMATURE GRANULOCYTE ABSOLUTE 0.17 K/uL (0-1); LYMPHOCYTES # (AUTO) 0.6 K/uL (1.0-4.8); LYMPHOCYTES % (AUTO) 4.5 % (21.0-51.0); MEAN CORPUSCULAR HEMOGLOBIN 30.7 pg (27.0-33.0); MEAN CORPUSCULAR HGB CONC 32.9 g/dL (32.0-36.0); MEAN CORPUSCULAR VOLUME 93.2 fL (79-99); MONOCYTES # (AUTO) 0.3 K/uL (0.1-1.0); MONOCYTES % (AUTO) 2.1 % (3.0-13.0); NEUTROPHILS % (AUTO) 91.9 % (40.0-77.0); PLATELET COUNT (AUTO) 158 K/uL (130-400); RED BLOOD CELL COUNT(AUTO) 3.55 MIL/uL (4.50-6.20); RED CELL DISTRIBUTION WIDTH 15.2 % (11.0-15.5)
[2024-10-06 01:11] LABS: INR 1.52 (0.85-1.15); PROTHROMBIN TIME 15.5 SEC (9.6-11.6)
[2024-10-06 01:24] LABS: CREATININE 1.8 mg/dL (0.5-1.3); MAGNESIUM 1.9 mg/dL (1.80-2.40); POTASSIUM 3.6 mmol/L (3.5-5.1)
--- NOTE | 2024-10-06 08:29 | HMCIMG ---
Exam Type: CHEST 1VW Clinical Information: chf Comparison: None Findings: There is cardiomegaly and there is status post median sternotomy. The lungs are clear of infiltrates. Impression: Clear lungs.
--- NOTE | 2024-10-06 08:41 | PN ---
[facility] Cardiology Progress Note CARDIOLOGY PROGRESS NOTE OCTOBER 06, 2024 PROBLEMS: 1. Acute on chronic diastolic heart failure with LV ejection fraction of 55-60% by echo September 28 2024 2. Permanent atrial fibrillation 3. Chronic anticoagulation 4. 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 Chronic kidney disease stage IIIA 6. Hypertension 7. Dyslipidemia 8. Severe tricuspid regurgitation 9. Moderate pulmonary hypertension The patient's home medications included bumetanide 1 mg p.o. b.i.d. metoprolol succinate 25 mg daily nifedipine 60 mg daily aspirin 81 mg daily atorvastatin 40 mg daily pantoprazole 40 mg daily ranolazine 500 mg b.i.d. tamsulosin 0.4 mg daily and warfarin 3 mg daily blood pressure 138/66 heart rate is in the 60s the patient is afebrile. White count has jumped from 9.1-45266. Hemoglobin 10.9 platelet count 004107. Potassium 3.6 BUN 44 creatinine one up and GFR dropped from 45-36. INR this morning is 1.52 INR on admission was 2.1. Currently he is receiving aspirin 81 mg daily atorvastatin bumetanide was discontinued yesterday he was switched to furosemide 40 b.i.d.. He is also receiving insulin scale Solu-Medrol metoprolol succinate nifedipine pantoprazole ranolazine and spironolactone. The patient is feeling better. He has some rales at the left base. States he will has been compliant with his medications as an outpatient. MOLLY MOORE MD Oct 06, 2024 08:41
[2024-10-06] MEDS: WARFARIN SODIUM 2 MG TAB PO ONE (09:52)
--- NOTE | 2024-10-06 14:12 | NUR ---
[facility] Consult: Patient assessed by wound healing team. See wound assessment. Assessment and recommendations provided to primary nurse. Education provided. Addendum: 10/07/24 at 0948 by JOHN JERONIMO RN RN/ Amended: Links added.
--- NOTE | 2024-10-06 15:14 | PN ---
[facility] PROGRESS NOTE Date of Service: Oct 06, 2024 Time of Service: 14:58 SUBJECTIVE: 10/02 Mr. Norton is a 89-year-old male with a history of CHF, COPD, CAD, DM type 2, hypertension, IA, sleep apnea, and chronic back pain who presented to [facility] for evaluation of shortness of breath. The patient denied chest pain, fevers, any other pain, problem or concern. Patient is pending chest x-ray, CT chest, and venous Doppler results. Labs: BNP 312. D-dimer a 1298. Troponin negative. PO2 65.5. In ED patient was administered Bumex1 mg IV, vancomycin IV, and Aztreonem. ED physician request patient be admitted with the diagnosis of CHF exacerbation. Patient was admitted under the [facility] hospitalist team. I went to assess the patient at bedside. RN reports that patient has voided a 1500 mL after the Bumex administration. Patient's breathing was even, unlabored, on home CPAP, in no distress. I informed the patient of remarkable labs, diagnostics, and plan of care. The patient verbalized understanding and is in agreement with the plan. Plan and assessment are listed below 10/03 patient was seen by nurse practitioner and physician during rounding in the emergency department in room ED 15 lying in the bed. Family members/ at the bedside. Nurse practitioner was also able to talk to the daughter over the phone. Home medication were reconciled. Patient stated that for the past two weeks he has been getting weaker and weaker and that he is not as he used to be 2 to 3 weeks ago. Prior patient was independent now he is very weak and barely his Lexiscan hold him. Patient is requesting if he could be this time admitted to the rehab. PT was consulted and case management consulted as well. Patient continues to be on 2 L nasal cannula satting at 98%. [employer] was consulted for further evaluation. We will monitor patient in the meantime. A.m. labs] 10/04/2024 - patient is seen in room ED 15, patient is alert, awake, oriented to time place person. Patient expresses that he feels better compared to the day he got admitted and mentioned about having very good sleep. Patient is currently saturating at 98% on2 L nasal cannula. Pulmonology, Nephrology, Cardiology has been consulted on the case and we will follow their recomme ndations. Patient seems clinically better and lung V/Q scan has not been done yet, Lovenox will be continued. Patient is otherwise hemodynamically stable. Patient's creatinine has been in improving, patient will be monitored closely. 10/05/2024 - patient is seen in room 423 . Patient is alert, awake, oriented to time place person. Patient had a good sleep last night and is on minimal requirement of oxygen currently of 2 L O2 and saturating at 96%. Pending cardiology recommendations. Respiratory culture came positive for Angie albicans, it might possibly be a contamination . We will follow up with the blood cultures too. Patient is otherwise hemodynamically stable. Creatinine trending at 1.5, will be followed closely . 10/06/2024 - patient is feeling well. Patient is advised to ambulate as tolerated and physical therapy order has been placed. Warfarin dosage has been increased with the Cardiology as it is not in the therapeutic range, we will continue to monitor the level. Patient had a bump in creatinine which raise to 1.8. Bumex1 mg IV has been stopped and estimate 40 mg b.i.d. has been started by the Cardiology. Patient is hemodynamically stable and labs are un[place] [address]. Patient is asymptomatic, wound management consult has been ordered due to rash on his lower back and mattress has been changed. REVIEW OF SYSTEMS 12-point ROS reviewed with the patient. All pertinent positives mentioned above. Otherwise negative, noncontributory, non-pertinent. PHYSICAL EXAM GENERAL APPEARANCE: The patient is awake, alert, and oriented, in no acute cardiopulmonary distress. NEUROLOGICAL: Cranial nerves II-XII grossly intact. Motor is 5/5 in bilateral upper and lower extremities proximal to distal. No sensory deficits. HEENT: Face is symmetric. Pupils are equal and reactive. Extraocular movements are intact. NECK: Supple. No JVD. No thyromegaly. No submental, submandibular, pre-/postauricular, occipital or supraclavicular lymphadenopathy. CHEST: Normal chest expansion. No Telemetry. LUNGS: Crackles. Breathing is even and unlabored, on CPAP. CARDIOVASCULAR: Regular. S1 and S2 normal. No appreciable rubs, murmurs or gallops. ABDOMEN: Soft, nontender, and nondistended. There is no rebound, voluntary guarding, or rigidity. : Deferred. No Koch. EXTREMITIES: +1 edema. No cyanosis. No clubbing. Good capillary refill. SKIN: No skin breakdown. Vital Signs (last 8hr) Date Time Temp Pulse Resp B/P (MAP) Pulse Ox O2 Delivery O2 Flow Rate FiO2 10/06/24 12:00 97.7 67 20 149/70 95 Nasal Cannula 2.0 10/06/24 11:22 55 18 N/Cannula Low lpm 2.0 28 10/06/24 11:21 55 18 10/06/24 08:00 97.0 71 18 145/65 95 Room Air 21 LABS: Laboratory: Test 10/06/24 11:17 10/06/24 00:50 Range/Units Whole Blood Glucose 202 H 70-110 MG/DL White Blood Count 13.0 #H 4.8-10.8 K/uL Red Blood Count 3.55 L 4.50-6.20 MIL/uL Hemoglobin 10.9 L 14.0-18.0 g/dL Hematocrit 33.1 L 42-54 % Mean Corpuscular Volume 93.2 79-99 fL Mean Corpuscular Hemoglobin 30.7 27.0-33.0 pg Mean Corpuscular Hemoglobin Concent 32.9 32.0-36.0 g/dL Red Cell Distribution Width 15.2 11.0-15.5 % Platelet Count 158 130-400 K/uL Mean Platelet Volume 10.4 7.5-10.5 fL Immature Granulocyte % (Auto) 1.3 H 0-1 % Neutrophils (%) (Auto) 91.9 H 40.0-77.0 % Lymphocytes (%) (Auto) 4.5 L 21.0-51.0 % Monocytes (%) (Auto) 2.1 L 3.0-13.0 % Eosinophils (%) (Auto) 0.0 0.0-8.0 % Basophils (%) (Auto) 0.2 0.0-5.0 % Neutrophils # (Auto) 12.0 H 1.8-7.7 K/uL Lymphocytes # (Auto) 0.6 L 1.0-4.8 K/uL Monocytes # (Auto) 0.3 0.1-1.0 K/uL Eosinophils # (Auto) 0.00 0.00-0.70 K/uL Basophils # (Auto) 0.02 0.00-0.20 K/uL Absolute Immature Granulocyte (auto 0.17 0-1 K/uL Nucleated Red Blood Cells 0.0 0.0-0.19 % Prothrombin Time 15.5 H 9.6-11.6 SEC Prothromb Time International Ratio 1.52 H 0.85-1.15 Sodium Level 136 136-145 mmol/L Potassium Level 3.6 3.5-5.1 mmol/L Chloride Level 101 101-111 mmol/L Carbon Dioxide Level 27 21-32 mmol/L Blood Urea Nitrogen 44 H 7-18 mg/dL Creatinine 1.8 H 0.5-1.3 mg/dL Glomerular Filtration Rate Calc 36 >90 mL/min Random Glucose 166 H 70-105 mg/dL Total Calcium 8.5 8.5-10.1 mg/dL Magnesium Level 1.90 1.80-2.40 mg/dL Vancomycin Level Trough 10.7 10.0-20.0 UG/ML Current Medications Medications (Trade) Dose Ordered Sig/Reji Route PRN Reason Start Time Stop Time Status Last Admin Dose Admin Acetaminophen (TYLenol 325MG TAB) 650 mg Q6H PRN PO FEVER/MILD PAIN LEVEL 1-3 10/03/24 01:30 11/02/24 01:29 Acetaminophen (TYLenol 650MG SUPPOSITORY) 650 mg Q6H PRN RC FEVER / MILD PAIN 1-3 IF NPO 10/03/24 01:30 11/02/24 01:29 Albuterol (DUOneb) 1 udvial DAILY PRN IH SHORTNESS OF BREATH 10/03/24 15:00 11/02/24 14:59 Albuterol Sulfate (Proventil 0.083% 2.5mg/3ml) 2.5 mg [id number] IH 10/03/24 01:15 11/02/24 01:14 10/06/24 11:20 2.5 MG Aspirin (Aspirin 81mg Ec Tab) 81 mg DAILY PO 10/04/24 09:00 11/03/24 08:59 10/06/24 09:26 81 MG Atorvastatin Calcium (LIPItor 40MG) 40 mg HS PO 10/03/24 21:00 11/02/24 20:59 10/05/24 21:32 40 MG Aztreonam (Azactam) 1 gm Q12H IVPB 10/03/24 01:00 10/13/24 00:59 10/06/24 13:11 1 GM Benzonatate (Tessalon 100mg Caps) 100 mg TID PRN PO COUGH 10/05/24 18:30 11/04/24 18:29 10/05/24 18:39 100 MG Bumetanide (Bumex 1mg Tab) 1 mg BID PO 10/03/24 21:00 10/04/24 08:02 DC 10/03/24 21:23 1 MG Bumetanide (Bumex 1mg Vial) 1 mg BID IVP 10/03/24 13:00 10/05/24 16:47 DC 10/05/24 09:03 1 MG Buspirone HCl (BUspar) 10 mg BID PO 10/03/24 21:00 11/02/24 20:59 10/06/24 09:27 10 MG Docusate Sodium (COLace 100MG CAP) 100 mg BID PRN PO c 10/03/24 01:30 11/02/24 01:29 Enoxaparin Sodium (Lovenox (Pharmacy To Dose)) 1 unit Q12H SQ 10/05/24 17:00 10/05/24 16:59 DC Enoxaparin Sodium (Lovenox) 40 mg DAILY SQ 10/03/24 09:00 10/05/24 11:27 DC 10/05/24 09:09 40 MG Enoxaparin Sodium (Lovenox) 90 mg Q12H SQ 10/05/24 17:30 10/05/24 18:02 DC Famotidine (Pepcid 20mg Vial) 20 mg Q48H IV 10/03/24 09:00 11/02/24 08:59 10/05/24 09:03 20 MG Ferrous Sulfate (Ferrous Sulfate) 325 mg NOON PO 10/04/24 12:00 11/03/24 11:59 10/06/24 12:05 325 MG Fish Oil (Fish Oil 1000 Mg/Cap) 1,000 mg NOON PO 10/04/24 12:00 11/03/24 11:59 10/06/24 12:05 1,000 MG Furosemide (LASix 40MG TAB) 40 mg BID@09,17 PO 10/05/24 17:00 11/04/24 16:59 10/06/24 09:27 40 MG Home Med (Home Medication) (Plecanatide (Trulance) 3 MG TAB) DAILY PO 10/04/24 09:00 11/03/24 08:59 Hydroxyzine HCl (ATArax 25MG TAB) 25 mg DAILY PRN PO ANXIETY 10/03/24 15:00 11/02/24 14:59 10/05/24 02:25 25 MG Insulin Human Regular (humuLIN R 100 UNIT/ML 3ML) INSULIN SLIDING SCAL... ACHS SQ 10/03/24 07:30 11/02/24 07:29 10/06/24 12:11 6 UNIT Ipratropium [place] (AtrovENT UD) 0.5 mg [id number] IH 10/03/24 01:15 11/02/24 01:14 10/06/24 11:20 0.5 MG Labetalol HCl (TRANdate 20MG SYG) 10 mg Q2H PRN IV SBP GREATER THAN 160 10/03/24 01:30 11/02/24 01:29 10/04/24 23:56 10 MG Lactulose (Constulose 20gm/ 30ml Udcup) 10 gm DAILY PO 10/04/24 09:00 11/03/24 08:59 10/05/24 08:22 10 GM Lactulose (Constulose 20gm/ 30ml Udcup) 20 gm Q6H PRN PO CONSTIPATION 10/03/24 01:30 11/02/24 01:29 10/06/24 05:29 20 GM Magnesium Oxide (Mag-Ox) 400 mg NOON PO 10/04/24 12:00 11/03/24 11:59 10/06/24 12:05 400 MG Methylprednisolone Sodium Succinate (Solu-medROL 40MG) 60 mg Q8H IVP 10/03/24 08:00 11/02/24 07:59 10/06/24 10:04 60 MG Metoprolol Succinate (TopROL XL) 25 mg DAILY PO 10/04/24 09:00 11/03/24 08:59 10/06/24 09:26 25 MG Metoprolol Tartrate (loprESSOR) 25 mg DAILY15 PO 10/03/24 15:00 10/04/24 08:03 DC 10/03/24 16:46 25 MG Multivitamins Therapeutic (Multivitamin Tablet) 1 tab NOON PO 10/04/24 12:00 11/03/24 11:59 10/06/24 12:05 1 TAB Nifedipine (adALAT 30MG) 60 mg DAILY PO 10/03/24 09:00 11/02/24 08:59 10/06/24 09:26 60 MG Nitroglycerin (Nitrostat) 0.4 mg AD SL 10/03/24 15:00 11/02/24 14:59 Ondansetron HCl (zoFRAN 4MG INJ) 4 mg Q6H PRN IVP NAUSEA/VOMITING 10/03/24 01:30 11/02/24 01:29 Pantoprazole Sodium (PROTonix 40MG TAB) 40 mg ACBKFST PO 10/04/24 07:30 11/03/24 07:29 10/06/24 07:22 40 MG Potassium Chloride (K-Dur/Klor-Con 20meq) 20 meq AD PRN PO POTASSIUM PROTOCOL 10/05/24 12:00 11/04/24 11:59 10/06/24 12:05 20 MEQ Psyllium Hydrophilic Mucilloid (Metamucil) 1 tbs NOON PO 10/04/24 12:00 11/03/24 11:59 10/06/24 12:05 1 TBS Ranolazine (Ranexa) 500 mg BID PO 10/03/24 21:00 11/02/24 20:59 10/06/24 09:26 500 MG Spironolactone (Aldactone 25mg) 12.5 mg DAILY PO 10/03/24 09:00 11/02/24 08:59 10/06/24 09:29 12.5 MG Tamsulosin HCl (FloMAX) 0.4 mg HS PO 10/03/24 21:00 11/02/24 20:59 10/05/24 21:32 0.4 MG Temazepam (restORIL 15 MG CAP) 15 mg HS PRN PO INSOMNIA/SLEEP 10/03/24 01:30 11/02/24 01:29 10/05/24 21:34 15 MG Vancomycin HCl (Vancomycin 750mg) 750 mg Q24H IVPB 10/04/24 02:00 10/14/24 01:59 10/06/24 02:04 750 MG Vancomycin HCl (Vancomycin Protocol) 1 each AD IV 10/03/24 01:00 10/17/24 00:59 Warfarin Sodium (Coumadin) 3 mg WARF PO 10/05/24 16:00 10/06/24 08:43 DC 10/05/24 16:54 3 MG DIAGNOSTICS / RADIOLOGY: PATIENT: LISBETH SILVA V MR#: [id number] : 1935 SEX: M AGE: 89 LOCATION: [facility] ORDER 99 STATUS: ADM IN REPORT#: [id number] SERVICE 0600 REASON: chf ORDERING PHYSICIAN: DOUGIE WOLFE PROCEDURE: CXR1VW - CHEST 1VW Exam Type: CHEST 1VW Clinical Information: chf Comparison: None Findings: There is cardiomegaly and there is status post median sternotomy. The lungs are clear of infiltrates. Impression: Clear lungs. DICTATED BY: MELLISA OLIVO MD DATE: 10/06/24826 ELECTRONICALLY SIGNED BY: MELLISA OLIVO MD DATE: 10/06/24828 ASSESSMENT: Acute CHF exacerbation, POA Acute hypoxic respiratory failure POA Progressive generalized body weakness POA Moderate malnutrition due to above LVEF 55-60%, per echo on 09/28/2024 CHF Stage III diastolic dysfunction, PASP is 53 mmHg, per echo on 09/28/2024 Acute hypoxemic respiratory failure, POA Acute COPD exacerbation, POA Elevated D-dimer, rule out PE and DVT. Anemia chronic disease Acute kidney injury Dehydration Hyperglycemia Obesity, BMI 32 Chronic problem list: CHF, COPD, DM type 2, hypertension, IA, sleep apnea PLAN: Placement in rehabilitation Acute CHF exacerbation CHF Stage III diastolic dysfunction, PASP is 53 mmHg, per echo on 09/28/2024 Supplemental oxygen as needed keep saturation above 92% - use nasal cannula or non-rebreather mask as needed Follow cardiology recommendations Continue [id number] mg p.o. Continue mg p.o. Continue Ranexa 500 mg b.i.d. p.o. Continue atorvastatin 40 mg p.o. Continue nifedipine 60 mg daily Continue spironolactone 12.5 mg daily Bumex has been stopped Furosemide 40 mg b.i.d. has been started by the cardiology Acute hypoxic respiratory failure Maintain the saturation above 92% Use inhalers, nebulizers as needed Continue Solu-Medrol 60 mg Q8 IV Follow up pulmonology recommendations Acute kidney injury Monitor renal function Strict Is&Os Follow Nephrology recommendations Physical therapy consulted for evaluation Case management consulted for disposition to sniff versus rehab A.m. labs Venous Doppler negative Chest CT negative GI and DVT prophylaxis. ATTESTATION BY PHYSICIAN I have seen and examined the patient. I reviewed the documentation, medical decision making, and treatment plan as noted by the resident provider above. I agree with the findings and plan of care. Nam Wakefield MD, KEERTI K MD Oct 06, 2024 15:14
--- NOTE | 2024-10-06 16:17 | PN ---
[facility] PROGRESS NOTE Date Patient Seen: Oct 06, 2024 Time of Visit: 16:17 Supervising Physician: Dr. Andrea Peña PROBLEM LIST: Acute hypoxic respiratory failure POA Acute on chronic diastolic heart failure with an LVEF of 55-60% per echocardiogram performed on September 28, 2024 Progressive generalized body weakness POA Moderate malnutrition due to above LVEF 55-60%, per echo on 09/28/2024 CHF Stage III diastolic dysfunction, PASP is 53 mmHg, per echo on 09/28/2024 Acute hypoxemic respiratory failure, POA Acute COPD exacerbation, POA Elevated D-dimer, rule out PE and DVT. Anemia chronic disease Acute kidney injury Dehydration Hyperglycemia Obesity, BMI 32 Chronic problem list: CHF, COPD, DM type 2, hypertension, DE, sleep apnea INTERVAL HISTORY: Patient evaluated at bedside, he is currently on room air at the time of evaluation. Patient appears to be in good spirits, tolerating physical therapy, denies any acute distress at this time. He is being seen by Cardiology, respiratory status has improved and he continues with his diuresis and antibiotic treatment at this time. We will continue to follow the patient while he is in the floor, disposition per primary. Plan disposition per primary Supplemental O2 if required Continue with physical therapy Continue diuresis Continue antibiotic therapy Continue to follow Cardiology recommendations REVIEW OF SYSTEMS: 12 point ROS reviewed with patient. Pertinent positives mentioned above. Otherwise negative. PHYSICAL EXAM: GENERAL: alert, weak, awake oriented x 3 HEENT: EOMI, Sclera non icteric, moist mucosa NECK: Supple, no JVD, trachea midline LUNGS: Clear breath sounds bilaterally. No wheezes HEART: Regular rate and rhythm. Normal S1 and S2, without murmurs ABD: Abdomen soft, nontender. Bowel sounds present EXT: No clubbing cyanosis or edema NEURO: Alert and oriented to person, follows commands Vital Signs (last 8hr) Date Time Temp Pulse Resp B/P (MAP) Pulse Ox O2 Delivery O2 Flow Rate FiO2 10/06/24 16:00 97.9 64 20 130/59 94 Room Air 21 10/06/24 12:00 97.7 67 20 149/70 95 Nasal Cannula 2.0 10/06/24 11:22 55 18 N/Cannula Low lpm 2.0 28 10/06/24 11:21 55 18 LABS: Hematology Labs: Test 10/06/24 00:50 Range/Units White Blood Count 13.0 #H 4.8-10.8 K/uL Red Blood Count 3.55 L 4.50-6.20 MIL/uL Hemoglobin 10.9 L 14.0-18.0 g/dL Hematocrit 33.1 L 42-54 % Mean Corpuscular Volume 93.2 79-99 fL Mean Corpuscular Hemoglobin 30.7 27.0-33.0 pg Mean Corpuscular Hemoglobin Concent 32.9 32.0-36.0 g/dL Red Cell Distribution Width 15.2 11.0-15.5 % Platelet Count 158 130-400 K/uL Mean Platelet Volume 10.4 7.5-10.5 fL Immature Granulocyte % (Auto) 1.3 H 0-1 % Neutrophils (%) (Auto) 91.9 H 40.0-77.0 % Lymphocytes (%) (Auto) 4.5 L 21.0-51.0 % Monocytes (%) (Auto) 2.1 L 3.0-13.0 % Eosinophils (%) (Auto) 0.0 0.0-8.0 % Basophils (%) (Auto) 0.2 0.0-5.0 % Neutrophils # (Auto) 12.0 H 1.8-7.7 K/uL Lymphocytes # (Auto) 0.6 L 1.0-4.8 K/uL Monocytes # (Auto) 0.3 0.1-1.0 K/uL Eosinophils # (Auto) 0.00 0.00-0.70 K/uL Basophils # (Auto) 0.02 0.00-0.20 K/uL Absolute Immature Granulocyte (auto 0.17 0-1 K/uL Nucleated Red Blood Cells 0.0 0.0-0.19 % Chemistry Labs: Test 10/06/24 15:24 10/06/24 00:50 Range/Units Whole Blood Glucose 121 H 70-110 MG/DL Sodium Level 136 136-145 mmol/L Potassium Level 3.6 3.5-5.1 mmol/L Chloride Level 101 101-111 mmol/L Carbon Dioxide Level 27 21-32 mmol/L Blood Urea Nitrogen 44 H 7-18 mg/dL Creatinine 1.8 H 0.5-1.3 mg/dL Glomerular Filtration Rate Calc 36 >90 mL/min Random Glucose 166 H 70-105 mg/dL Total Calcium 8.5 8.5-10.1 mg/dL Magnesium Level 1.90 1.80-2.40 mg/dL Coagulation Labs: Test 10/06/24 00:50 Range/Units Prothrombin Time 15.5 H 9.6-11.6 SEC Prothromb Time International Ratio 1.52 H 0.85-1.15 DIAGNOSTICS / RADIOLOGY RESULTS: [ ] PLAN NEURO: Minimize central acting medications as possible. Maintain fall precautions, adequate lighting during the day PULMONARY: Supplemental 02 as needed. Maintain aspiration precautions at all times CARDIOVASCULAR: Follow hemodynamics. Vital signs per facility protocol GI & NUTRITION: Continue with nutritional support. Continue stool softeners and laxatives as needed. KIDNEYS & ELECTROLYTES: Strict monitoring of intake, output and overall fluid balance. Avoid nephrotoxic medications to the extent possible. Medications to be dosed according to renal function. Monitor electrolytes and replace as needed ENDOCRINE: Maintain blood glucose between 100-180 at all times. Hypoglycemia protocol in place INFECTIOUS DISEASE: Trend temperature, WBC and procalcitonin level Follow cultures, deescalate antibiotics as soon as possible. Panculture if new onset fever ONCOLOGY/HEMATOLOGY/COAGULATION: Monitor for s/s of bleeding Monitor hemoglobin, coagulation studies as needed SKIN: Pressure ulcer prevention per facility protocol Specialty mattress ORTHO/REHAB: Continue PT/OT Prophylaxis: Continue GI and DVT prophylaxis Code Status: Full Resuscitation Disposition: TBD Other: Total patient care time exceeds 35 minutes excluding all procedures. AZAEL ALVES Oct 06, 2024 16:17
[2024-10-06] MEDS: polyETHYLene GLYCol 3350 17 GM POWD.PACK PO SCH (21:19)
--- NOTE | 2024-10-06 23:56 | CONS ---
GASTROENTEROLOGY CONSULTATION NOTE Date of Consultation: Oct 06, 2024 Time of Consultation: 23:55 History of Present Illness: Mr. Ivory is a 81-year-old male with a history of CHF, COPD, CAD, DM type 2, hypertension, VT, sleep apnea, and chronic back pain who [place] [facility] [place] of shortness of breath. The patient denied chest pain, fevers, any other pain, problem or concern. We were called due to constipation. Review of Systems: CONSTITUTIONAL: No malaise or change in sensation of wellbeing. ENMT: No rhinorrhea, otorrhea, sinus pain, ear ache. CARDIOVASCULAR: No angina, palpitations, orthopnea or paroxysmal dyspnea. RESPIRATORY: No SOB. GASTROINTESTINAL: No abdominal pain, nausea, vomiting, diarrhea, hematemesis, melena or change in the patient's habitual bowel movements consistency/number. GENITOURINARY: No dysuria, hematuria or change in bladder continence. MUSCULOSKELETAL: No new muscle pain or decrease in muscular strength. No new joint swelling, redness or tenderness. SKIN: No new rash. Past Medical History: [ ] Past Surgical History: [ ] Past Social History: [ ] Family History: [ ] Coded Allergies: Penicillins (Unverified Allergy, Intermediate, RASH, 07/29/16) penicillin G (Unverified Allergy, Unknown, 05/10/20) pneumococcal vaccine (Unverified Allergy, Unknown, 05/10/20) Physical Exam: GEN: Awake, alert, oriented in person, time and place, and in no acute distress. HEENT: No sinus tenderness. Tympanic membranes were not examined. No rhinorrhea. Oral pharyngeal mucosa is pink, moist and within normal limits. Neck is supple with no cervical lymphadenopathy, thyromegaly or JVD. CHEST: Inspection, palpation and percussion of the chest were unremarkable. Lung auscultation revealed normal breath sounds bilaterally. CARDIAC: PMI is within normal limits. Heart sounds are regular. Normal S1, S2. No gallop or murmur. ABD: Soft, non-tender and not distended. No peritoneal signs on palpation. No organomegaly. Normal bowel sounds. EXT: No cyanosis or clubbing. No edema. SKIN: Intact. No rashes. JOINTS: No evidence of synovitis or acute arthritis. NEURO: Alert and oriented to name, place and person. Cranial nerve examination is unremarkable. No focal motor deficits. Normal speech. Gait is normal. Strength is normal. Vital Sign (Last 24 Hours) 10/06/24 10/06/24 10/06/24 19:04 20:00 22:46 Temp 97.5 Pulse 64 Resp 18 B/P (MAP) 148/63 Pulse Ox 96 O2 Delivery Room Air O2 Flow Rate 2.0 FiO2 28 Intake & Output (last 24hrs) 10/05/24 10/05/24 10/06/24 15:00 23:00 07:00 Intake Total 1800 ml Output Total 400 ml Balance 1800 ml -400 ml Laboratory: [ ] Laboratory: Test 10/06/24 19:50 10/06/24 00:50 Range/Units Whole Blood Glucose 148 H 70-110 MG/DL White Blood Count 13.0 #H 4.8-10.8 K/uL Red Blood Count 3.55 L 4.50-6.20 MIL/uL Hemoglobin 10.9 L 14.0-18.0 g/dL Hematocrit 33.1 L 42-54 % Mean Corpuscular Volume 93.2 79-99 fL Mean Corpuscular Hemoglobin 30.7 27.0-33.0 pg Mean Corpuscular Hemoglobin Concent 32.9 32.0-36.0 g/dL Red Cell Distribution Width 15.2 11.0-15.5 % Platelet Count 158 130-400 K/uL Mean Platelet Volume 10.4 7.5-10.5 fL Immature Granulocyte % (Auto) 1.3 H 0-1 % Neutrophils (%) (Auto) 91.9 H 40.0-77.0 % Lymphocytes (%) (Auto) 4.5 L 21.0-51.0 % Monocytes (%) (Auto) 2.1 L 3.0-13.0 % Eosinophils (%) (Auto) 0.0 0.0-8.0 % Basophils (%) (Auto) 0.2 0.0-5.0 % Neutrophils # (Auto) 12.0 H 1.8-7.7 K/uL Lymphocytes # (Auto) 0.6 L 1.0-4.8 K/uL Monocytes # (Auto) 0.3 0.1-1.0 K/uL Eosinophils # (Auto) 0.00 0.00-0.70 K/uL Basophils # (Auto) 0.02 0.00-0.20 K/uL Absolute Immature Granulocyte (auto 0.17 0-1 K/uL Nucleated Red Blood Cells 0.0 0.0-0.19 % Prothrombin Time 15.5 H 9.6-11.6 SEC Prothromb Time International Ratio 1.52 H 0.85-1.15 Sodium Level 136 136-145 mmol/L Potassium Level 3.6 3.5-5.1 mmol/L Chloride Level 101 101-111 mmol/L Carbon Dioxide Level 27 21-32 mmol/L Blood Urea Nitrogen 44 H 7-18 mg/dL Creatinine 1.8 H 0.5-1.3 mg/dL Glomerular Filtration Rate Calc 36 >90 mL/min Random Glucose 166 H 70-105 mg/dL Total Calcium 8.5 8.5-10.1 mg/dL Magnesium Level 1.90 1.80-2.40 mg/dL Vancomycin Level Trough 10.7 10.0-20.0 UG/ML Current Medications Medications (Trade) Dose Ordered Sig/Reji Route PRN Reason Start Time Stop Time Status Last Admin Dose Admin Acetaminophen (TYLenol 325MG TAB) 650 mg Q6H PRN PO FEVER/MILD PAIN LEVEL 1-3 10/03/24 01:30 11/02/24 01:29 Acetaminophen (TYLenol 650MG SUPPOSITORY) 650 mg Q6H PRN RC FEVER / MILD PAIN 1-3 IF NPO 10/03/24 01:30 11/02/24 01:29 Albuterol (DUOneb) 1 udvial DAILY PRN IH SHORTNESS OF BREATH 10/03/24 15:00 11/02/24 14:59 Albuterol Sulfate (Proventil 0.083% 2.5mg/3ml) 2.5 mg [id number] IH 10/03/24 01:15 11/02/24 01:14 10/06/24 22:40 2.5 MG Aspirin (Aspirin 81mg Ec Tab) 81 mg DAILY PO 10/04/24 09:00 11/03/24 08:59 10/06/24 09:26 81 MG Atorvastatin Calcium (LIPItor 40MG) 40 mg HS PO 10/03/24 21:00 11/02/24 20:59 10/06/24 21:12 40 MG Aztreonam (Azactam) 1 gm Q12H IVPB 10/03/24 01:00 10/13/24 00:59 10/06/24 13:11 1 GM Benzonatate (Tessalon 100mg Caps) 100 mg TID PRN PO COUGH 10/05/24 18:30 11/04/24 18:29 10/05/24 18:39 100 MG Bumetanide (Bumex 1mg Tab) 1 mg BID PO 10/03/24 21:00 10/04/24 08:02 DC 10/03/24 21:23 1 MG Bumetanide (Bumex 1mg Vial) 1 mg BID IVP 10/03/24 13:00 10/05/24 16:47 DC 10/05/24 09:03 1 MG Buspirone HCl (BUspar) 10 mg BID PO 10/03/24 21:00 11/02/24 20:59 10/06/24 21:12 10 MG Docusate Sodium (COLace 100MG CAP) 100 mg BID PRN PO c 10/03/24 01:30 11/02/24 01:29 Enoxaparin Sodium (Lovenox (Pharmacy To Dose)) 1 unit Q12H SQ 10/05/24 17:00 10/05/24 16:59 DC Enoxaparin Sodium (Lovenox) 40 mg DAILY SQ 10/03/24 09:00 10/05/24 11:27 DC 10/05/24 09:09 40 MG Enoxaparin Sodium (Lovenox) 90 mg Q12H SQ 10/05/24 17:30 10/05/24 18:02 DC Famotidine (Pepcid 20mg Vial) 20 mg Q48H IV 10/03/24 09:00 11/02/24 08:59 10/05/24 09:03 20 MG Ferrous Sulfate (Ferrous Sulfate) 325 mg NOON PO 10/04/24 12:00 11/03/24 11:59 10/06/24 12:05 325 MG Fish Oil (Fish Oil 1000 Mg/Cap) 1,000 mg NOON PO 10/04/24 12:00 11/03/24 11:59 10/06/24 12:05 1,000 MG Furosemide (LASix 40MG TAB) 40 mg BID@09,17 PO 10/05/24 17:00 11/04/24 16:59 10/06/24 17:19 40 MG Home Med (Home Medication) (Plecanatide (Trulance) 3 MG TAB) DAILY PO 10/04/24 09:00 11/03/24 08:59 Hydroxyzine HCl (ATArax 25MG TAB) 25 mg DAILY PRN PO ANXIETY 10/03/24 15:00 11/02/24 14:59 10/05/24 02:25 25 MG Insulin Human Regular (humuLIN R 100 UNIT/ML 3ML) INSULIN SLIDING SCAL... ACHS SQ 10/03/24 07:30 11/02/24 07:29 10/06/24 12:11 6 UNIT Ipratropium [place] (AtrovENT UD) 0.5 mg W1HISES IH 10/03/24 01:15 11/02/24 01:14 10/06/24 22:40 0.5 MG Labetalol HCl (TRANdate 20MG SYG) 10 mg Q2H PRN IV SBP GREATER THAN 160 10/03/24 01:30 11/02/24 01:29 10/04/24 23:56 10 MG Lactulose (Constulose 20gm/ 30ml Udcup) 10 gm DAILY PO 10/04/24 09:00 11/03/24 08:59 10/05/24 08:22 10 GM Lactulose (Constulose 20gm/ 30ml Udcup) 20 gm Q6H PRN PO CONSTIPATION 10/03/24 01:30 11/02/24 01:29 10/06/24 05:29 20 GM Magnesium Oxide (Mag-Ox) 400 mg NOON PO 10/04/24 12:00 11/03/24 11:59 10/06/24 12:05 400 MG Methylprednisolone Sodium Succinate (Solu-medROL 40MG) 60 mg Q8H IVP 10/03/24 08:00 11/02/24 07:59 10/06/24 17:20 60 MG Metoprolol Succinate (TopROL XL) 25 mg DAILY PO 10/04/24 09:00 11/03/24 08:59 10/06/24 09:26 25 MG Metoprolol Tartrate (loprESSOR) 25 mg DAILY15 PO 10/03/24 15:00 10/04/24 08:03 DC 10/03/24 16:46 25 MG Multivitamins Therapeutic (Multivitamin Tablet) 1 tab NOON PO 10/04/24 12:00 11/03/24 11:59 10/06/24 12:05 1 TAB Nifedipine (adALAT 30MG) 60 mg DAILY PO 10/03/24 09:00 11/02/24 08:59 10/06/24 09:26 60 MG Nitroglycerin (Nitrostat) 0.4 mg AD SL 10/03/24 15:00 11/02/24 14:59 Ondansetron HCl (zoFRAN 4MG INJ) 4 mg Q6H PRN IVP NAUSEA/VOMITING 10/03/24 01:30 11/02/24 01:29 Pantoprazole Sodium (PROTonix 40MG TAB) 40 mg ACBKFST PO 10/04/24 07:30 11/03/24 07:29 10/06/24 07:22 40 MG Polyethylene Glycol (MIRalax 3350 17 GM POWD.PACK) 17 gm BID PO 10/06/24 21:00 11/05/24 20:59 10/06/24 21:19 17 GM Potassium Chloride (K-Dur/Klor-Con 20meq) 20 meq AD PRN PO POTASSIUM PROTOCOL 10/05/24 12:00 11/04/24 11:59 10/06/24 12:05 20 MEQ Psyllium Hydrophilic Mucilloid (Metamucil) 1 tbs NOON PO 10/04/24 12:00 11/03/24 11:59 10/06/24 12:05 1 TBS Ranolazine (Ranexa) 500 mg BID PO 10/03/24 21:00 11/02/24 20:59 10/06/24 21:12 500 MG Spironolactone (Aldactone 25mg) 12.5 mg DAILY PO 10/03/24 09:00 11/02/24 08:59 10/06/24 09:29 12.5 MG Tamsulosin HCl (FloMAX) 0.4 mg HS PO 10/03/24 21:00 11/02/24 20:59 10/06/24 21:12 0.4 MG Temazepam (restORIL 15 MG CAP) 15 mg HS PRN PO INSOMNIA/SLEEP 10/03/24 01:30 11/02/24 01:29 10/06/24 21:19 15 MG Vancomycin HCl (Vancomycin 750mg) 750 mg Q24H IVPB 10/04/24 02:00 10/14/24 01:59 10/06/24 02:04 750 MG Vancomycin HCl (Vancomycin Protocol) 1 each AD IV 10/03/24 01:00 10/17/24 00:59 Warfarin Sodium (Coumadin) 3 mg WARF PO 10/05/24 16:00 10/06/24 08:43 DC 10/05/24 16:54 3 MG Diagnostics / Radiology: [COPY/PASTE HERE IF NO REPORTS PLEASE DELETE SECTION] Assessment: [ ] Plan: Miralax BID FRANCISCO JAVIER WELCH [employer]DER[employer] OPERATOR Oct 06, 2024 23:55
[2024-10-07] VITALS (7 sets, daily range): BP systolic 124–149; BP diastolic 53–74; PULSE 58–75; RESP 17–18; TEMP 97.2–97.6; O2SAT 94–98
[2024-10-07] MEDS: acetaMINOPHEN 325 MG TAB PO PRN (00:24)
[2024-10-07 06:04] LABS: BASOPHILS # (AUTO) 0.01 K/uL (0.00-0.20); BASOPHILS % (AUTO) 0.1 % (0.0-5.0); HEMATOCRIT 29.5 % (42-54); IMMATURE GRANULOCYTE ABSOLUTE 0.15 K/uL (0-1); LYMPHOCYTES # (AUTO) 0.4 K/uL (1.0-4.8); LYMPHOCYTES % (AUTO) 4.7 % (21.0-51.0); MEAN CORPUSCULAR HEMOGLOBIN 30.9 pg (27.0-33.0); MEAN CORPUSCULAR HGB CONC 32.9 g/dL (32.0-36.0); MEAN CORPUSCULAR VOLUME 93.9 fL (79-99); MONOCYTES # (AUTO) 0.2 K/uL (0.1-1.0); NEUTROPHILS # (AUTO) 6.9 K/uL (1.8-7.7); NEUTROPHILS % (AUTO) 90.2 % (40.0-77.0); PLATELET COUNT (AUTO) 142 K/uL (130-400); RED BLOOD CELL COUNT(AUTO) 3.14 MIL/uL (4.50-6.20); RED CELL DISTRIBUTION WIDTH 15.2 % (11.0-15.5); WHITE BLOOD COUNT (AUTO) 7.6 K/uL (4.8-10.8)
[2024-10-07 06:17] LABS: CREATININE 1.3 mg/dL (0.5-1.3); POTASSIUM 4.2 mmol/L (3.5-5.1)
--- NOTE | 2024-10-07 06:22 | PN ---
[facility] Cardiology Progress Note CARDIOLOGY PROGRESS NOTE OCTOBER 07, 2024 PROBLEMS: 1. Acute on chronic diastolic heart failure with LV ejection fraction of 55-60% by echo September 28 2024 2. Permanent atrial fibrillation 3. Chronic anticoagulation 4. 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 Chronic kidney disease stage IIIA 6. Hypertension 7. Dyslipidemia 8. Severe tricuspid regurgitation 9. Moderate pulmonary hypertension 10. Obstructive sleep apnea Blood pressure this morning is ranging 130 and 140 systolic. Heart rate is in the 60s. The patient is afebrile. White count dropped to 7.6 hemoglobin 9.7 platelet count is [id number]. Potassium 4.2 BUN 39 creatinine 1.3 down from 44 and 1.8 yesterday. The patient continues on aspirin atorvastatin famotidine furosemide 40 mg p.o. b.i.d. insulin scale Solu-Medrol metoprolol succinate nifedipine pantoprazole ranolazine and spironolactone. Since switching from IV diuretics to oral diuretics the patient's BUN and creatinine have improved. The patient can follow up with me after discharge in one week. Currently his breathing is comfortable. He does utilize CPAP at night. There was no elevation of the jugular venous pressure lungs are clear. He is undergoing evaluation of urinary retention. Following this plans are for transferred to rehab. He can follow up with me in two weeks. MOLLY MOORE MD Oct 07, 2024 06:22
[2024-10-07 06:33] LABS: INR 1.89 (0.85-1.15); PROTHROMBIN TIME 18.8 SEC (9.6-11.6)
--- NOTE | 2024-10-07 09:24 | PN ---
GASTROENTEROLOGY PROGRESS NOTE Date of Visit: Oct 07, 2024 Time of Visit: 09:24 Events / Notes: [ ] Review of Systems: CONSTITUTIONAL: No malaise or change in sensation of wellbeing. ENMT: No rhinorrhea, otorrhea, sinus pain, ear ache. CARDIOVASCULAR: No angina, palpitations, orthopnea or paroxysmal dyspnea. RESPIRATORY: No SOB. GASTROINTESTINAL: No abdominal pain, nausea, vomiting, diarrhea, hematemesis, melena or change in the patient's habitual bowel movements consistency/number. GENITOURINARY: No dysuria, hematuria or change in bladder continence. MUSCULOSKELETAL: No new muscle pain or decrease in muscular strength. No new joint swelling, redness or tenderness. SKIN: No new rash. Physical Exam: GEN: Awake, alert, oriented in person, time and place, and in no acute distress. HEENT: No sinus tenderness. Tympanic membranes were not examined. No rhinorrhea. Oral pharyngeal mucosa is pink, moist and within normal limits. Neck is supple with no cervical lymphadenopathy, thyromegaly or JVD. CHEST: Inspection, palpation and percussion of the chest were unremarkable. Lung auscultation revealed normal breath sounds bilaterally. CARDIAC: PMI is within normal limits. Heart sounds are regular. Normal S1, S2. No gallop or murmur. ABD: Soft, non-tender and not distended. No peritoneal signs on palpation. No organomegaly. Normal bowel sounds. EXT: No cyanosis or clubbing. No edema. SKIN: Intact. No rashes. JOINTS: No evidence of synovitis or acute arthritis. NEURO: Alert and oriented to name, place and person. Cranial nerve examination is unremarkable. No focal motor deficits. Normal speech. Gait is normal. Strength is normal. Vital Signs (last 8hr) Date Time Temp Pulse Resp B/P (MAP) Pulse Ox O2 Delivery O2 Flow Rate FiO2 10/07/24 08:00 97.3 62 17 149/60 94 Nasal Cannula 2.0 10/07/24 07:21 58 18 10/07/24 07:19 58 18 N/Cannula Low lpm 2.0 28 10/07/24 04:00 97.5 67 18 146/53 98 CPAP Laboratory: [ ] Laboratory: Test 10/07/24 05:36 10/07/24 05:35 10/06/24 00:50 Range/Units White Blood Count 7.6 4.8-10.8 K/uL Red Blood Count 3.14 L 4.50-6.20 MIL/uL Hemoglobin 9.7 L 14.0-18.0 g/dL Hematocrit 29.5 L 42-54 % Mean Corpuscular Volume 93.9 79-99 fL Mean Corpuscular Hemoglobin 30.9 27.0-33.0 pg Mean Corpuscular Hemoglobin Concent 32.9 32.0-36.0 g/dL Red Cell Distribution Width 15.2 11.0-15.5 % Platelet Count 142 130-400 K/uL Mean Platelet Volume 10.8 H 7.5-10.5 fL Immature Granulocyte % (Auto) 2.0 H 0-1 % Neutrophils (%) (Auto) 90.2 H 40.0-77.0 % Lymphocytes (%) (Auto) 4.7 L 21.0-51.0 % Monocytes (%) (Auto) 3.0 3.0-13.0 % Eosinophils (%) (Auto) 0.0 0.0-8.0 % Basophils (%) (Auto) 0.1 0.0-5.0 % Neutrophils # (Auto) 6.9 1.8-7.7 K/uL Lymphocytes # (Auto) 0.4 L 1.0-4.8 K/uL Monocytes # (Auto) 0.2 0.1-1.0 K/uL Eosinophils # (Auto) 0.00 0.00-0.70 K/uL Basophils # (Auto) 0.01 0.00-0.20 K/uL Absolute Immature Granulocyte (auto 0.15 0-1 K/uL Nucleated Red Blood Cells 0.0 0.0-0.19 % White Cell Morphology Comment See comments Prothrombin Time 18.8 H 9.6-11.6 SEC Prothromb Time International Ratio 1.89 H 0.85-1.15 Sodium Level 138 136-145 mmol/L Potassium Level 4.2 3.5-5.1 mmol/L Chloride Level 105 101-111 mmol/L Carbon Dioxide Level 28 21-32 mmol/L Blood Urea Nitrogen 39 H 7-18 mg/dL Creatinine 1.3 0.5-1.3 mg/dL Glomerular Filtration Rate Calc 53 >90 mL/min Random Glucose 147 H 70-105 mg/dL Total Calcium 8.4 L 8.5-10.1 mg/dL Whole Blood Glucose 140 H 70-110 MG/DL Magnesium Level 1.90 1.80-2.40 mg/dL Vancomycin Level Trough 10.7 10.0-20.0 UG/ML Current Medications Medications (Trade) Dose Ordered Sig/Reji Route PRN Reason Start Time Stop Time Status Last Admin Dose Admin Acetaminophen (TYLenol 325MG TAB) 650 mg Q6H PRN PO FEVER/MILD PAIN LEVEL 1-3 10/03/24 01:30 11/02/24 01:29 10/07/24 00:24 650 MG Acetaminophen (TYLenol 650MG SUPPOSITORY) 650 mg Q6H PRN RC FEVER / MILD PAIN 1-3 IF NPO 10/03/24 01:30 11/02/24 01:29 Albuterol (DUOneb) 1 udvial DAILY PRN IH SHORTNESS OF BREATH 10/03/24 15:00 11/02/24 14:59 Albuterol Sulfate (Proventil 0.083% 2.5mg/3ml) 2.5 mg [id number] IH 10/03/24 01:15 11/02/24 01:14 10/07/24 07:21 2.5 MG Aspirin (Aspirin 81mg Ec Tab) 81 mg DAILY PO 10/04/24 09:00 11/03/24 08:59 10/07/24 08:34 81 MG Atorvastatin Calcium (LIPItor 40MG) 40 mg HS PO 10/03/24 21:00 11/02/24 20:59 10/06/24 21:12 40 MG Aztreonam (Azactam) 1 gm Q12H IVPB 10/03/24 01:00 10/13/24 00:59 10/07/24 00:10 1 GM Benzonatate (Tessalon 100mg Caps) 100 mg TID PRN PO COUGH 10/05/24 18:30 11/04/24 18:29 10/05/24 18:39 100 MG Bumetanide (Bumex 1mg Tab) 1 mg BID PO 10/03/24 21:00 10/04/24 08:02 DC 10/03/24 21:23 1 MG Bumetanide (Bumex 1mg Vial) 1 mg BID IVP 10/03/24 13:00 10/05/24 16:47 DC 10/05/24 09:03 1 MG Buspirone HCl (BUspar) 10 mg BID PO 10/03/24 21:00 11/02/24 20:59 10/07/24 08:34 10 MG Docusate Sodium (COLace 100MG CAP) 100 mg BID PRN PO c 10/03/24 01:30 11/02/24 01:29 Enoxaparin Sodium (Lovenox (Pharmacy To Dose)) 1 unit Q12H SQ 10/05/24 17:00 10/05/24 16:59 DC Enoxaparin Sodium (Lovenox) 40 mg DAILY SQ 10/03/24 09:00 10/05/24 11:27 DC 10/05/24 09:09 40 MG Enoxaparin Sodium (Lovenox) 90 mg Q12H SQ 10/05/24 17:30 10/05/24 18:02 DC Famotidine (Pepcid 20mg Vial) 20 mg Q48H IV 10/03/24 09:00 11/02/24 08:59 10/07/24 08:34 20 MG Ferrous Sulfate (Ferrous Sulfate) 325 mg NOON PO 10/04/24 12:00 11/03/24 11:59 10/06/24 12:05 325 MG Fish Oil (Fish Oil 1000 Mg/Cap) 1,000 mg NOON PO 10/04/24 12:00 11/03/24 11:59 10/06/24 12:05 1,000 MG Furosemide (LASix 40MG TAB) 40 mg BID@09,17 PO 10/05/24 17:00 11/04/24 16:59 10/07/24 08:34 40 MG Home Med (Home Medication) (Plecanatide (Trulance) 3 MG TAB) DAILY PO 10/04/24 09:00 11/03/24 08:59 Hydroxyzine HCl (ATArax 25MG TAB) 25 mg DAILY PRN PO ANXIETY 10/03/24 15:00 11/02/24 14:59 10/05/24 02:25 25 MG Insulin Human Regular (humuLIN R 100 UNIT/ML 3ML) INSULIN SLIDING SCAL... ACHS SQ 10/03/24 07:30 11/02/24 07:29 10/06/24 12:11 6 UNIT Ipratropium Hobbs (AtrovENT UD) 0.5 mg [id number] IH 10/03/24 01:15 11/02/24 01:14 10/07/24 07:21 0.5 MG Labetalol HCl (TRANdate 20MG SYG) 10 mg Q2H PRN IV SBP GREATER THAN 160 10/03/24 01:30 11/02/24 01:29 10/04/24 23:56 10 MG Lactulose (Constulose 20gm/ 30ml Udcup) 10 gm DAILY PO 10/04/24 09:00 11/03/24 08:59 10/07/24 08:32 10 GM Lactulose (Constulose 20gm/ 30ml Udcup) 20 gm Q6H PRN PO CONSTIPATION 10/03/24 01:30 11/02/24 01:29 10/07/24 06:57 20 GM Magnesium Oxide (Mag-Ox) 400 mg NOON PO 10/04/24 12:00 11/03/24 11:59 10/06/24 12:05 400 MG Methylprednisolone Sodium Succinate (Solu-medROL 40MG) 60 mg Q8H IVP 10/03/24 08:00 11/02/24 07:59 10/07/24 08:35 60 MG Metoprolol Succinate (TopROL XL) 25 mg DAILY PO 10/04/24 09:00 11/03/24 08:59 10/07/24 08:34 25 MG Metoprolol Tartrate (loprESSOR) 25 mg DAILY15 PO 10/03/24 15:00 10/04/24 08:03 DC 10/03/24 16:46 25 MG Multivitamins Therapeutic (Multivitamin Tablet) 1 tab NOON PO 10/04/24 12:00 11/03/24 11:59 10/06/24 12:05 1 TAB Nifedipine (adALAT 30MG) 60 mg DAILY PO 10/03/24 09:00 11/02/24 08:59 10/07/24 08:34 60 MG Nitroglycerin (Nitrostat) 0.4 mg AD SL 10/03/24 15:00 11/02/24 14:59 Ondansetron HCl (zoFRAN 4MG INJ) 4 mg Q6H PRN IVP NAUSEA/VOMITING 10/03/24 01:30 11/02/24 01:29 Pantoprazole Sodium (PROTonix 40MG TAB) 40 mg ACBKFST PO 10/04/24 07:30 11/03/24 07:29 10/07/24 06:53 40 MG Polyethylene Glycol (MIRalax 3350 17 GM POWD.PACK) 17 gm BID PO 10/06/24 21:00 11/05/24 20:59 10/07/24 08:34 17 GM Potassium Chloride (K-Dur/Klor-Con 20meq) 20 meq AD PRN PO POTASSIUM PROTOCOL 10/05/24 12:00 11/04/24 11:59 10/06/24 12:05 20 MEQ Psyllium Hydrophilic Mucilloid (Metamucil) 1 tbs NOON PO 10/04/24 12:00 11/03/24 11:59 10/06/24 12:05 1 TBS Ranolazine (Ranexa) 500 mg BID PO 10/03/24 21:00 11/02/24 20:59 10/07/24 08:33 500 MG Spironolactone (Aldactone 25mg) 12.5 mg DAILY PO 10/03/24 09:00 11/02/24 08:59 10/07/24 08:34 12.5 MG Tamsulosin HCl (FloMAX) 0.4 mg HS PO 10/03/24 21:00 11/02/24 20:59 10/06/24 21:12 0.4 MG Temazepam (restORIL 15 MG CAP) 15 mg HS PRN PO INSOMNIA/SLEEP 10/03/24 01:30 11/02/24 01:29 10/06/24 21:19 15 MG Vancomycin HCl (Vancomycin 750mg) 750 mg Q24H IVPB 10/04/24 02:00 10/14/24 01:59 10/07/24 01:26 750 MG Vancomycin HCl (Vancomycin Protocol) 1 each AD IV 10/03/24 01:00 10/17/24 00:59 Warfarin Sodium (Coumadin) 3 mg WARF PO 10/05/24 16:00 10/06/24 08:43 DC 10/05/24 16:54 3 MG Diagnostics / Radiology: [COPY/PASTE HERE IF NO REPORTS PLEASE DELETE SECTION] Assessment: [ ] Plan: Miralax BID FRANCISCO JAVIER WELCH [facility] Oct 07, 2024 09:24
--- NOTE | 2024-10-07 12:52 | PN ---
[facility] PROGRESS NOTE Date Patient Seen: Oct 07, 2024 Time of Visit: 12:52 Supervising Physician: [ ] Supervising Physician: Dr. Andrea Peña PROBLEM LIST: Acute hypoxic respiratory failure POA Acute on chronic diastolic heart failure with an LVEF of 55-60% per echocardiogram performed on September 28, 2024 Progressive generalized body weakness POA Moderate malnutrition due to above LVEF 55-60%, per echo on 09/28/2024 CHF Stage III diastolic dysfunction, PASP is 53 mmHg, per echo on 09/28/2024 Acute hypoxemic respiratory failure, POA Acute COPD exacerbation, POA Elevated D-dimer, rule out PE and DVT. Anemia chronic disease Acute kidney injury Dehydration Hyperglycemia Obesity, BMI 32 Chronic problem list: CHF, COPD, DM type 2, hypertension, AR, sleep apnea INTERVAL HISTORY: Patient was bedside today, he has been with physical therapy. Denies any new onset symptoms remains on two nasal cannula today patient was discharge to SNF where he has been accepted continued physical rehab. Patient was cleared to discharge from pulmonary standpoint, can continue to wean off O2 supplementation at SNF. Recommending PT as tolerated. REVIEW OF SYSTEMS: 12 point ROS reviewed with patient. Pertinent positives mentioned above. Otherwise negative. PHYSICAL EXAM: GENERAL: alert, weak, awake oriented x 3 HEENT: EOMI, Sclera non icteric, moist mucosa NECK: Supple, no JVD, trachea midline LUNGS: Clear breath sounds bilaterally. No wheezes HEART: Regular rate and rhythm. Normal S1 and S2, without murmurs ABD: Abdomen soft, nontender. Bowel sounds present EXT: No clubbing cyanosis or edema NEURO: Alert and oriented to person, follows commands Vital Signs (last 8hr) Date Time Temp Pulse Resp B/P (MAP) Pulse Ox O2 Delivery O2 Flow Rate FiO2 10/07/24 11:28 75 18 N/Cannula Low lpm 2.0 28 10/07/24 11:28 75 18 10/07/24 08:00 97.3 62 17 149/60 94 Nasal Cannula 2.0 10/07/24 07:21 58 18 10/07/24 07:19 58 18 N/Cannula Low lpm 2.0 28 LABS: Hematology Labs: Test 10/07/24 05:36 Range/Units White Blood Count 7.6 4.8-10.8 K/uL Red Blood Count 3.14 L 4.50-6.20 MIL/uL Hemoglobin 9.7 L 14.0-18.0 g/dL Hematocrit 29.5 L 42-54 % Mean Corpuscular Volume 93.9 79-99 fL Mean Corpuscular Hemoglobin 30.9 27.0-33.0 pg Mean Corpuscular Hemoglobin Concent 32.9 32.0-36.0 g/dL Red Cell Distribution Width 15.2 11.0-15.5 % Platelet Count 142 130-400 K/uL Mean Platelet Volume 10.8 H 7.5-10.5 fL Immature Granulocyte % (Auto) 2.0 H 0-1 % Neutrophils (%) (Auto) 90.2 H 40.0-77.0 % Lymphocytes (%) (Auto) 4.7 L 21.0-51.0 % Monocytes (%) (Auto) 3.0 3.0-13.0 % Eosinophils (%) (Auto) 0.0 0.0-8.0 % Basophils (%) (Auto) 0.1 0.0-5.0 % Neutrophils # (Auto) 6.9 1.8-7.7 K/uL Lymphocytes # (Auto) 0.4 L 1.0-4.8 K/uL Monocytes # (Auto) 0.2 0.1-1.0 K/uL Eosinophils # (Auto) 0.00 0.00-0.70 K/uL Basophils # (Auto) 0.01 0.00-0.20 K/uL Absolute Immature Granulocyte (auto 0.15 0-1 K/uL Nucleated Red Blood Cells 0.0 0.0-0.19 % White Cell Morphology Comment See comments Chemistry Labs: Test 10/07/24 11:02 10/07/24 05:36 10/06/24 00:50 Range/Units Whole Blood Glucose 116 H 70-110 MG/DL Sodium Level 138 136-145 mmol/L Potassium Level 4.2 3.5-5.1 mmol/L Chloride Level 105 101-111 mmol/L Carbon Dioxide Level 28 21-32 mmol/L Blood Urea Nitrogen 39 H 7-18 mg/dL Creatinine 1.3 0.5-1.3 mg/dL Glomerular Filtration Rate Calc 53 >90 mL/min Random Glucose 147 H 70-105 mg/dL Total Calcium 8.4 L 8.5-10.1 mg/dL Magnesium Level 1.90 1.80-2.40 mg/dL Coagulation Labs: Test 10/07/24 05:36 Range/Units Prothrombin Time 18.8 H 9.6-11.6 SEC Prothromb Time International Ratio 1.89 H 0.85-1.15 DIAGNOSTICS / RADIOLOGY RESULTS: [ ] PLAN NEURO: Minimize central acting medications as possible. Maintain fall precautions, adequate lighting during the day PULMONARY: Supplemental 02 as needed. Maintain aspiration precautions at all times CARDIOVASCULAR: Follow hemodynamics. Vital signs per facility protocol GI & NUTRITION: Continue with nutritional support. Continue stool softeners and laxatives as needed. KIDNEYS & ELECTROLYTES: Strict monitoring of intake, output and overall fluid balance. Avoid nephrotoxic medications to the extent possible. Medications to be dosed according to renal function. Monitor electrolytes and replace as needed ENDOCRINE: Maintain blood glucose between 100-180 at all times. Hypoglycemia protocol in place INFECTIOUS DISEASE: Trend temperature, WBC and procalcitonin level Follow cultures, deescalate antibiotics as soon as possible. Panculture if new onset fever ONCOLOGY/HEMATOLOGY/COAGULATION: Monitor for s/s of bleeding Monitor hemoglobin, coagulation studies as needed SKIN: Pressure ulcer prevention per facility protocol Specialty mattress ORTHO/REHAB: Continue PT/OT Prophylaxis: Continue GI and DVT prophylaxis Code Status: Full Resuscitation Disposition: TBD Other: Total patient care time exceeds 35 minutes excluding all procedures. AZAEL ALVES Oct 07, 2024 12:52
--- NOTE | 2024-10-07 15:13 | DS ---
Discharge Summary Hospital Course Summary: 10/02 Mr. Norton is a 89-year-old male with a history of CHF, COPD, CAD, DM type 2, hypertension, NH, sleep apnea, and chronic back pain who presented to [facility] ED for evaluation of shortness of breath. The patient denied chest pain, fevers, any other pain, problem or concern. Patient is pending chest x-ray, CT chest, and venous Doppler results. Labs: BNP 312. D-dimer a 1298. Troponin negative. PO2 65.5. In ED patient was administered Bumex1 mg IV, vancomycin IV, and Aztreonem. ED physician request patient be admitted with the diagnosis of CHF exacerbation. Patient was admitted under the [facility] hospitalist team. I went to assess the patient at bedside. RN reports that patient has voided a 1500 mL after the Bumex administration. Patient's breathing was even, unlabo red, on home CPAP, in no distress. I informed the patient of remarkable labs, diagnostics, and plan of care. The patient verbalized understanding and is in agreement with the plan. Plan and assessment are listed below As the patient was initiated on Bumex IV, vancomycin and aztreonam and respiratory cultures were positive for Angie but patient did not show any symptoms and with believed it is a contaminant. Bumex was later adjusted from 2 mg b.i.d. to furosemide 40 mg b.i.d.. due to rising creatinine levels . Pulmonary consultation was obtained for further management of persistent dyspnea. Lovenox was eventually discontinued and warfarin has been started and the Cardiology have bumped up the dose to bring it to therapeutic level Patient showed clinical improvement with stable oxygen saturation at 96% on 2 L nasal cannula and hemodynamic stability The patient remained alert, oriented and hemodynamically stable throughout the admission with no acute cardiopulmonary distress As the patient requested for rehabilitation case management followed up on it and patient has been approved at [facility]. As the patient is on high-dose steroids a taper schedule has been attached with the discharge and medication has been prescribed, spironolactone and furosemide has been added to the medication regimen and Bumex has been stopped. Recommended the patient to have follow up with Cardiology in 2 weeks and pulmonology in 1 - 2 weeks and primary in 1-2 weeks . Patient is deemed stable for discharge is ready to transfer to [facility] rehabilitation supervisor(s): Gastroenterology, pulmonology, Cardiology, Wound management Procedure(s): PATIENT: LISBETH SILVA V MR#: [id number] : 1935 SEX: M AGE: 89 LOCATION: 4DH ORDER 2300 STATUS: ADM IN REPORT#: [id number] SERVICE 06 REASON: chf ORDERING PHYSICIAN: DOUGIE WOLFE SENIOR ASIC DESIGN ENGINEER PROCEDURE: CXR1VW - CHEST 1VW Exam Type: CHEST 1VW Clinical Information: chf Comparison: None Findings: There is cardiomegaly and there is status post median sternotomy. The lungs are clear of infiltrates. Impression: Clear lungs. DICTATED BY: MELLISA OLIVO MD DATE: 10/06/24826 ELECTRONICALLY SIGNED BY: MELLISA OLIVO MD DATE: 10/06/24828 PATIENT: LISBETH SILVA V MR#: [id number] : 1935 SEX: M AGE: 89 LOCATION: EDHIP ORDER 7 STATUS: ADM IN [facility] REPORT#: [id number] SERVICE 5 REASON: ELEVATED D-DIMER ORDERING PHYSICIAN: CARLO REINA SENIOR ASIC DESIGN ENGINEER PROCEDURE: VENOUS CRYSTAL - US VENOUS DOPPLER BILATERAL Exam Type: US VENOUS DOPPLER BILATERAL Clinical Information: ELEVATED D-DIMER Comparison: None Findings: The examination shows normal deep venous system. There is normal compressibility at all levels. There is no intraluminal clot. There is no occlusion. Adequate response is obtained on augmentation. Impression: No evidence of DVT. DICTATED BY: MELLISA OLIVO MD DATE: 10/03/24907 ELECTRONICALLY SIGNED BY: MELLISA OLIVO MD DATE: 10/03/24910 PATIENT: LISBETH SILVA V MR#: [id number] : 1935 SEX: M AGE: 89 LOCATION: EDHIP ORDER 7 STATUS: ADM IN REPORT#: [id number] SERVICE 5 REASON: ELEVATED D-DIMER ORDERING PHYSICIAN: CARLO REINA PROCEDURE: CHEST WO - CT CHEST W/O CONTRAST CT NONCONTRAST CHEST Comparison Study: none History: ELEVATED D-DIMER Technique: Helical CT of the chest without IV contrast at 5 mm collimation. Coronal and sagittal reformations also done. CT Dose Index (CTDI): 2.38 mGy Dose Length Product (DLP): 94.8 total mGy-cm Findings: The airway is intact. The trachea and major bronchi are unremarkable. The chest exam shows no pulmonary nodules or masses. No significant pulmonary parenchymal abnormalities are noted. No pulmonary infiltrates or mass lesions are seen. No pleural effusions are identified. There is no pneumothorax. There is no evidence of pneumomediastinum. The nonenhanced exam of the courtney and mediastinum is unremarkable. No evidence of hilar enlargement is seen. The aorta shows no aneurysmal dilatation or significant atheromatous calcification. No significant brachiocephalic vascular abnormalities are seen. Status post CABG. Cardiomegaly and coronary arterial calcifications of the [place] coronary arteries. There is no pericardial effusion. The rib cage appears unremarkable. The soft tissues of the chest wall are unremarkable. The dorsal spine shows no significant abnormalities. IMPRESSION: No acute pathology. This study was performed using dose reduction techniques to include automated exposure control and/or adjustment of the mA and/or kV according to patient size. DICTATED BY: MELLISA OLIVO MD DATE: 10/03/24843 ELECTRONICALLY SIGNED BY: MELLISA OLIVO MD DATE: 10/03/24847 PATIENT: LISBETH SILVA V MR#: [id number] : 1935 SEX: M AGE: 89 LOCATION: EDHIP ORDER 06 STATUS: ADM IN REPORT#: [id number] SERVICE 04 REASON: sob ORDERING PHYSICIAN: MADINA KEVIN PROCEDURE: CXR1VW - CHEST 1VW Exam Type: CHEST 1VW Clinical Information: sob Comparison: None Findings: Status post CABG. There is prominence of the pulmonary vascular markings consistent with pulmonary venous congestion. . There is central bilateral perihilar edema consistent with congestive heart failure. The heart is enlarged in size. The bony and soft tissue structures of the chest are unremarkable. Impression: Congestive heart failure with perihilar edema as noted. DICTATED BY: MELLISA OLIVO MD DATE: 10/03/24925 ELECTRONICALLY SIGNED BY: MELLISA OLIVO MD DATE: 10/03/24928 Assessment/Plan: ASSESSMENT: Acute CHF exacerbation, POA Acute hypoxic respiratory failure POA Progressive generalized body weakness POA Moderate malnutrition due to above LVEF 55-60%, per echo on 09/28/2024 CHF Stage III diastolic dysfunction, PASP is 53 mmHg, per echo on 09/28/2024 Acute hypoxemic respiratory failure, POA Acute COPD exacerbation, POA Elevated D-dimer, rule out PE and DVT. Anemia chronic disease Acute kidney injury Dehydration Hyperglycemia Obesity, BMI 32 Chronic problem list: CHF, COPD, DM type 2, hypertension, NH, sleep apnea Discharge Instructions: Take your medication as prescribed Report a weight gain of 2-3 lb in24 hours or5 lb in a week to your healthcare provider Monitor for increased shortness of breath, especially while lying down. Report any worsening or new swelling in your legs, ankles or abdomen Fluid intake of 1.5-2 L per day. Avoid excessive fluids to prevent fluid buildup Low-sodium diet with 1363-8726 mg per day. Avoid processed and fast foods To manage constipation, increase fiber intake with fruits and vegetables and whole grains. Stay hydrated within your fluid limit You may also use MiraLax b.i.d. as suggested by gastroenterology Engage in light physical activity like walking. Avoid over exertion and rest has needed. Sleep with the head elevated if you experience shortness of breath while lying flat If you have any of the following signs report to the doctor immediately Sudden weight gain Increased swelling in her legs, ankles, abdomen Worsening shortness of breath especially at rest Dizziness, lightheadedness or confusion Reduced urine output or extreme thirst Severe constipation or relieved by laxatives Follow up with primary care in 1-2 weeks Follow up with Cardiology in 1 week Follow up with pulmonology in 1 week Home Medications: Active Scripts Nifedipine (Nifedipine ER) 30 Mg Tab.er.24, 60 MG PO DAILY, #30 TAB Prov:CRISTAL QUIROS MD 10/01/24 Metoprolol Succinate (Toprol Xl) 25 Mg Tab.er.24h, 25 MG PO DAILY, #30 TAB Prov:CRISTAL QUIROS MD 10/01/24 Bumetanide (Bumetanide) 1 Mg Tablet, 1 MG PO BID, #60 TAB Prov:CRISTAL QUIROS MD 10/01/24 Reported Medications Plecanatide (Trulance) 3 Mg Tablet, 1 TAB PO DAILY for 30 Days, #30 TAB 0 Refills 09/28/24 Ipratropium/Albuterol Sulfate (Combivent Respimat Inhal Dexter) 20 Mcg-100 Mcg/Actuation Aer.w.adap, 4 GM IH DAILY PRN for SHORTNESS OF BREATH 10/05/23 Nitroglycerin (Nitrostat) 0.4 Mg Tab.subl, 0.4 MG SL AD, TAB.SL 10/05/23 Lactulose (Lactulose) 10 Gram/15 Ml Solution, 10 GM PO DAILY, ML 10/05/23 Hydroxyzine HCl (Hydroxyzine HCl) 25 Mg Tablet, 25 MG PO DAILY PRN for ANXIETY, TAB 10/05/23 Buspirone HCl (Buspirone HCl) 10 Mg Tablet, 10 MG PO BID, TAB 10/05/23 Tamsulosin HCl (Flomax) 0.4 Mg Cap.er.24h, 0.4 MG PO HS, CAPSULE.DR 10/05/23 Atorvastatin Calcium (LIPITOR) 40 Mg Tablet, 40 MG PO HS, TAB 10/05/23 Warfarin Sodium (Warfarin Sodium) 3 Mg Tablet, 3 MG PO HS, TAB 10/05/23 Psyllium Husk (Fiber) 0.4 Gram Capsule, 0.8 GM PO NOON, CAP 10/05/23 [place]-3/Dha/Epa/Fish Oil (Fish Oil 1,000 mg Softgel) 1,000 Mg (120 Mg-180 Mg) Capsule, 1000 MG PO NOON, CAP 10/05/23 Multivitamin (Multivitamin) 1 Each Tablet, 1 EACH PO NOON, TAB 10/05/23 Magnesium Oxide (Magnesium) 400 Mg Magnesium Tablet, 400 MG PO NOON, TAB 10/05/23 Ferrous Sulfate (Ferrous Sulfate) 325 Mg (65 Mg Iron) Ectab, 325 MG PO NOON, TAB.EC 10/05/23 Ranolazine (RANEXA) 500 Mg Tab.er.12h, 500 MG PO BID, TAB 10/05/23 Aspirin (ASPIRIN 81 MG ECTAB) 81 Mg Ectab, 81 MG PO DAILY, TAB.EC 10/05/23 Pantoprazole Sodium (Pantoprazole Sodium) 40 Mg Tablet.dr, 40 MG PO AM, TAB 10/05/23 Discontinued Reported Medications Chlorthalidone (Chlorthalidone) 25 Mg Tablet, 1 TAB PO DAILY for 30 Days, #30 TAB 0 Refills 09/28/24 Amlodipine Besylate (Amlodipine Besylate) 10 Mg Tablet, 10 MG PO HS for 30 Days, #30 TAB 0 Refills 10/05/23 Losartan Potassium (Losartan Potassium) 100 Mg Tablet, 100 MG PO NOON, TAB 10/05/23 Potassium Chloride (Potassium Chloride) 20 Meq Tablet.er, 20 MEQ PO HS, TAB 10/05/23 Potassium Chloride (Potassium Chloride) 20 Meq Tablet.er, 20 MEQ PO ACDINNER, TAB 10/05/23 Potassium Chloride (Potassium Chloride) 20 Meq Tablet.er, 20 MEQ PO NOON, TAB 10/05/23 Metoprolol Succinate (Metoprolol Succinate) 25 Mg Tab.er.24h, 12.5 MG PO AMNOON, TAB 10/05/23 Furosemide (Furosemide) 40 Mg Tablet, 40 MG PO AMNOON, TAB 10/05/23 Discontinued Scripts Spironolactone (Spironolactone) 25 Mg Tablet, 12.5 MG PO DAILY, #30 TAB Prov:CRISTAL QUIROS MD 10/01/24 Magnesium Oxide (Magnesium) 250 Mg Tablet, 1 TAB PO DAILY for 7 Days, #7 TAB 0 Refills Prov:VALARIE DUARTE MD 07/28/24 New Medications: Prednisone (Prednisone) 5 Mg Tablet 5 MG PO BID, #4 TAB Treatment plan for steroid tapering 50 mg tablets b.i.d. for day1 and day2 20 mg tablets b.i.d. for day3 and day4 10 mg tablets b.i.d. for day 5 and day 6 5 Mg tablets b.i.d. for day 7 and day 8 Prednisone (Prednisone) 10 Mg Tablet 10 MG PO BID, #4 TAB Treatment plan for steroid tapering 50 mg tablets b.i.d. for day1 and day2 20 mg tablets b.i.d. for day3 and day4 10 mg tablets b.i.d. for day 5 and day 6 5 Mg tablets b.i.d. for day 7 and day 8 Prednisone (Prednisone) 20 Mg Tablet 20 MG PO BID, #4 TAB Treatment plan for steroid tapering 50 mg tablets b.i.d. for day1 and day2 20 mg tablets b.i.d. for day3 and day4 10 mg tablets b.i.d. for day 5 and day 6 5 Mg tablets b.i.d. for day 7 and day 8 Prednisone (Prednisone) 50 Mg Tablet 50 MG PO BID, #4 TAB Treatment plan for steroid tapering 50 mg tablets b.i.d. for day1 and day2 20 mg tablets b.i.d. for day3 and day4 10 mg tablets b.i.d. for day 5 and day 6 5 Mg tablets b.i.d. for day 7 and day 8 Furosemide (Lasix 40Mg Tab) 40 Mg Tablet 40 MG PO BID@09,17 for 30 Days, #60 TAB Polyethylene Glycol 3350 (Miralax) 17 Gram Powd.pack 17 GM PO BID, #1 Spironolactone (Spironolactone) 25 Mg Tablet 12.5 MG PO DAILY for 30 Days, #30 TAB Continued Medications: Aspirin (Aspirin 81 Mg Ectab) 81 Mg Ectab 81 MG PO DAILY, TAB.EC Atorvastatin Calcium (Lipitor) 40 Mg Tablet 40 MG PO HS, TAB Buspirone HCl (Buspirone HCl) 10 Mg Tablet 10 MG PO BID, TAB Ferrous Sulfate (Ferrous Sulfate) 325 Mg (65 Mg Iron) Ectab 325 MG PO NOON, TAB.EC Hydroxyzine HCl (Hydroxyzine HCl) 25 Mg Tablet 25 MG PO DAILY PRN for ANXIETY, TAB Ipratropium/Albuterol Sulfate (Combivent Respimat Inhal Dexter) 20 Mcg-100 Mcg/Actuation Aer.w.adap 4 GM IH DAILY PRN for SHORTNESS OF BREATH Lactulose (Lactulose) 10 Gram/15 Ml Solution 10 GM PO DAILY, ML Magnesium Oxide (Magnesium) 400 Mg Magnesium Tablet 400 MG PO NOON, TAB Metoprolol Succinate (Toprol Xl) 25 Mg Tab.er.24h 25 MG PO DAILY, #30 TAB Multivitamin (Multivitamin) 1 Each Tablet 1 EACH PO NOON, TAB Nifedipine (Nifedipine ER) 30 Mg Tab.er.24 60 MG PO DAILY, #30 TAB Nitroglycerin (Nitrostat) 0.4 Mg Tab.subl 0.4 MG SL AD, TAB.SL [place]-3/Dha/Epa/Fish Oil (Fish Oil 1,000 mg Softgel) 1,000 Mg (120 Mg-180 Mg) Capsule 1000 MG PO NOON, CAP Pantoprazole Sodium (Pantoprazole Sodium) 40 Mg Tablet.dr 40 MG PO AM, TAB Plecanatide (Trulance) 3 Mg Tablet 1 TAB PO DAILY for 30 Days, #30 TAB 0 Refills Psyllium Husk (Fiber) 0.4 Gram Capsule 0.8 GM PO NOON, CAP Ranolazine (Ranexa) 500 Mg Tab.er.12h 500 MG PO BID, TAB Tamsulosin HCl (Flomax) 0.4 Mg Cap.er.24h 0.4 MG PO HS, CAPSULE.DR Warfarin Sodium (Warfarin Sodium) 3 Mg Tablet 3 MG PO HS, TAB Discontinued Medications: Bumetanide (Bumetanide) 1 Mg Tablet 1 MG PO BID, #60 TAB Time spent arranging discharge: 31-60 minutes ATTESTATION BY PHYSICIAN I have seen and examined the patient. I reviewed the documentation, medical decision making, and treatment plan as noted by the resident provider above. I agree with the findings and plan of care. Nam Wakefield MD, KEERTI K MD Oct 07, 2024 15:13
[2024-10-07] MEDS ORDERED: FURO40TA7 PO (15:30)
[2024-10-07] MEDS ORDERED: PRED20TA3 PO (15:30)
[2024-10-07] MEDS ORDERED: PRED10TA3 PO (15:30)
[2024-10-07] MEDS ORDERED: SPIR25TA6 PO (15:30)
[2024-10-07] MEDS ORDERED: PRED5TAB PO (15:30)
[2024-10-07] MEDS ORDERED: PRED50TA2 PO (15:30)
[2024-10-07] MEDS ORDERED: POLY17PO4 PO (15:30)
--- NOTE | 2024-10-07 16:00 | NUR ---
PATIENT TO BE D/C TO [facility]. MEDICATIONS REVIEWED WITH PATIENT. VERBALIZED UNDERSTANDING. TELE REMOVED WELL IV. NO S/S OF DISTRESS NOTED AT THIS TIME. REPORT CALLED. NURSE AWARE OF PATIENT CURRENTLY ON CONTINUOUS OXYGEN. PATIENT TO BE FACILITY VAN ELECTRICAL APPRENTICE
--- NOTE | 2024-10-07 18:18 | NUR ---
[facility] FACILITY TELEVISION AND RADIO REPAIRER HERE TO TRANSPORT PATIENT. DAUGHTER AT BEDSIDE WILL FOLLOW PATIENT TO FACILITY
== END 2024-10-07 18:38 | DRG 189 ==
LOC: EDH 20:06 → EDHIP 10-03 00:53 → 4DH 10-04 17:50
PROVIDERS: ADMIT Internal Medicine; ATTEND Internal Medicine
PROC: 5A09357 Assistance with Respiratory Ventilation, Less than 24 Consecutive Hours, Continuous Positive Airway Pressure (ICD-10-PCS; principal; 2024-10-03)
PROC: 5A09357 Assistance with Respiratory Ventilation, Less than 24 Consecutive Hours, Continuous Positive Airway Pressure (ICD-10-PCS; 2024-10-04)
PROC: 5A09357 Assistance with Respiratory Ventilation, Less than 24 Consecutive Hours, Continuous Positive Airway Pressure (ICD-10-PCS; 2024-10-05)
PROC: 5A09357 Assistance with Respiratory Ventilation, Less than 24 Consecutive Hours, Continuous Positive Airway Pressure (ICD-10-PCS; 2024-10-06)
PROC: 5A09357 Assistance with Respiratory Ventilation, Less than 24 Consecutive Hours, Continuous Positive Airway Pressure (ICD-10-PCS; 2024-10-07)
DX: J96.01 Acute respiratory failure with hypoxia (principal); I50.33 Acute on chronic diastolic (congestive) heart failure; I13.0 Hypertensive heart and chronic kidney disease with heart failure and stage 1 through stage 4 chronic kidney disease, or unspecified chronic kidney disease; J44.1 Chronic obstructive pulmonary disease with (acute) exacerbation; N17.9 Acute kidney failure, unspecified; E44.0 Moderate protein-calorie malnutrition; I48.21 Permanent atrial fibrillation; Z20.822 Contact with and (suspected) exposure to COVID-19; D63.1 Anemia in chronic kidney disease; E11.22 Type 2 diabetes mellitus with diabetic chronic kidney disease; E11.65 Type 2 diabetes mellitus with hyperglycemia; E86.0 Dehydration; N18.31 Chronic kidney disease, stage 3a; E78.5 Hyperlipidemia, unspecified; G47.33 Obstructive sleep apnea (adult) (pediatric); I07.1 Rheumatic tricuspid insufficiency; G89.29 Other chronic pain; I25.10 Atherosclerotic heart disease of native coronary artery without angina pectoris; K59.00 Constipation, unspecified; I27.22 Pulmonary hypertension due to left heart disease; Z79.82 Long term (current) use of aspirin; Z79.01 Long term (current) use of anticoagulants; Z68.31 Body mass index [BMI] 31.0-31.9, adult; Z79.899 Other long term (current) drug therapy; Z88.0 Allergy status to penicillin; Z82.49 Family history of ischemic heart disease and other diseases of the circulatory system; Z98.61 Coronary angioplasty status
CPT/HCPCS: 36415; 36600; 71045; 71250; 80048; 80053; 80202; 81003; 82550; 82803; 82948; 83605; 83735; 83880; 84100; 84145; 84484; 85025; 85027; 85378; 85610; 85730; 87040; 87071; 87205; 87635; 87804; 93005; 93970; 94640; 94664; 99285; G0378; J1650; J1815; J2919; J3490; J3370